=== PATIENT | female | born 1965 | race Caucasian/White ===

== ENCOUNTER → 2020-06-05 12:35 | Outpatient (BNVA) | payer MEDICAID, SELFPAY | PROVIDERS: PCP Internal Medicine; Referring Provider Internal Medicine; Visit Provider Nurse Practitioner Family | DX: M47.816 Spondylosis without myelopathy or radiculopathy, lumbar region (principal); M53.3 Sacrococcygeal disorders, not elsewhere classified | CPT/HCPCS: 99202 ==

== ENCOUNTER 2020-06-27 12:00 | Outpatient (REF) | payer MEDICAID, SELFPAY ==
--- NOTE | 2020-06-27 12:01 | MR_ITS ---
EXAMINATION: MR LUMBAR SPINE WITHOUT AND WITH CONTRAST CLINICAL INFORMATION: Spondylosis without myelopathy or radiculopathy, lumbar region. COMPARISON: Lumbar spine MRI 08/26/2014. TECHNIQUE: MRI of the lumbar spine was obtained using routine sequences without and with intravenous contrast. A total of 6.5 mL Gadavist was intravenously administered. FINDINGS: There is transitional lumbosacral anatomy. The last formed disc space is considered L5-S1. A hypoplastic disc is seen at S1-S2. There is grade 1 anterolisthesis of L5 on S1 measuring 4 mm, previously 2 mm. There is new grade 1 anterolisthesis of L4 on L5 measuring 2 mm. There is unchanged trace retrolisthesis of L3 on L4. There is mild multilevel disc height loss, similar to prior. No bone marrow edema is seen. The distal spinal cord appears normal. The conus medullaris terminates normally at the upper L2 level. No abnormal cauda equina nerve root enhancement is seen. The visualized paraspinal muscles and intra-abdominal and pelvic contents are within normal limits. SPINAL LEVELS: L1-L2: Mild disc bulging. No spinal canal or neural foraminal stenosis. No interval change. L2-L3: Mild disc bulging. No spinal canal or neural foraminal stenosis. No interval change. L3-L4: Disc bulging with mild facet arthropathy. Mild spinal canal stenosis, new from prior. Left subarticular zone is asymmetrically narrowed. No foraminal nerve root compression. L4-L5: Disc bulging asymmetric to the left with ligament flavum infolding and moderate to severe facet arthropathy resulting in progressive moderate spinal canal stenosis and bilateral subarticular stenosis. Mild to moderate narrowing of the left neural foramen with abutment of the exiting left L4 nerve root, progressed from prior. L5-S1: Posterior decompression with fusion changes noted posteriorly. Similar-appearing mild spinal canal stenosis with asymmetric narrowing of the right subarticular zone with mass effect on the traversing right S1 nerve root without interval change. Mild bilateral neural foraminal stenosis without foraminal nerve root compression. MR/MR lumbar spine wo/w con IMPRESSION: At L3-L4 there is new mild spinal canal stenosis and asymmetric left subarticular stenosis. At L4-L5 there is new grade 1 anterolisthesis and progressive now moderate spinal canal stenosis with bilateral subarticular stenosis. Progressive mild to moderate left-sided neural foraminal stenosis. At L5-S1 there is unchanged mild spinal canal stenosis and asymmetric right subarticular stenosis with mass effect on the traversing right S1 nerve root.
== END 2020-06-27 12:01 | disposition home or self-care (01) ==
LOC: HO.MRI 12:00
PROVIDERS: Visit Provider Anesthesiology
DX: M47.816 Spondylosis without myelopathy or radiculopathy, lumbar region (principal)
CPT/HCPCS: 72158; A9585

== ENCOUNTER → 2020-10-09 14:31 | Outpatient (BNVA) | payer MEDICAID, SELFPAY | PROVIDERS: PCP Internal Medicine; Visit Provider Anesthesiology ==

== ENCOUNTER 2020-11-14 06:25 | Outpatient (REF) | payer MEDICAID, SELFPAY ==
--- NOTE | ~2020-11-14 | FL_ITS ---
EXAMINATION: Intraoperative fluoroscopy CLINICAL INFORMATION: Sacrococcygeal disorder COMPARISON: None. TECHNIQUE: Intraoperative fluoroscopy was provided for use by Dr. Alvarenga. A total of 1 image was saved to PACS. A radiologist was not present during imaging. Today's dictation is only for administrative purposes to document intraoperative fluoroscopic usage. TOTAL FLUOROSCOPIC TIME: 0.1 minutes FL/FL guidance in treatment room FINDINGS~\^^ Intraoperative fluoroscopy provided for use by Dr. Alvarenga. Please see operative note for detailed findings.
== END 2020-11-14 06:26 | disposition home or self-care (01) ==
LOC: HO.RADIR 06:25
PROVIDERS: Visit Provider Anesthesiology
DX: M53.3 Sacrococcygeal disorders, not elsewhere classified (principal); M47.816 Spondylosis without myelopathy or radiculopathy, lumbar region
CPT/HCPCS: 27096; J3300; Q9967

== ENCOUNTER 2021-01-02 12:08 | Outpatient (REF) | payer MEDICAID, SELFPAY ==
--- NOTE | ~2021-01-02 | MM_ITS ---
EXAMINATION: MM SCREENING DIGITAL BREAST TOMOSYNTHESIS, BILATERAL CLINICAL INFORMATION: Screening. Asymptomatic. The lifetime risk of breast cancer based on the Tyrer-Cuzick Model is 12%. COMPARISON: Mammography: 05/04/2018, 10/07/2016, 04/22/2012 TECHNIQUE: Digital breast tomosynthesis is performed in both the craniocaudal and mediolateral oblique views along with computer-aided detection (CAD). Synthesized 2D images are generated from the tomosynthesis. FINDINGS: There are scattered areas of fibroglandular density (ACR BI-RADS breast composition Category b). There are no significant masses, abnormal calcifications, or other abnormalities. The axilla and skin contours are unremarkable. No significant changes from prior exams. MM/MM tomosynthesis screening BI IMPRESSION: No mammographic evidence of malignancy. ASSESSMENT: BI-RADS 1: Negative RECOMMENDATION: Routine annual mammography screening. This patient's information was entered into a reminder system with a target due date for their next mammogram.
== END 2021-01-02 12:09 | disposition home or self-care (01) ==
LOC: HO.MAMMO 12:08
PROVIDERS: PCP Internal Medicine; Visit Provider Internal Medicine
DX: Z12.31 Encounter for screening mammogram for malignant neoplasm of breast (principal)
CPT/HCPCS: 77063; 77067

== ENCOUNTER → 2021-11-15 08:27 | Outpatient (BNVA) | payer MEDICAID, SELFPAY | PROVIDERS: PCP Internal Medicine; Referring Provider Internal Medicine; Visit Provider Physician Assistant | DX: Z13.89 Encounter for screening for other disorder (principal) ==

== ENCOUNTER 2021-12-12 12:05 | Emergency (ER) | payer MEDICAID, SELFPAY ==
--- NOTE | ~2021-12-12 | CT_ITS ---
EXAMINATION: CT ABDOMEN AND PELVIS WITHOUT CONTRAST CLINICAL INFORMATION: Left flank/back pain. Rule out stone. COMPARISON: CT of the abdomen and pelvis April 2019 TECHNIQUE: Multidetector volumetric imaging was performed from the superior aspect of the liver through the pubic symphysis. Sagittal and coronal reformatted images were obtained on the technologist's workstation. This CT examination was performed using dose optimization techniques as appropriate, variously including the following: *Automated exposure control *Adjustment of mA and/or kV according to patient size (this includes techniques or standardized protocols for targeted exams where dose is matched to indication/reason for exam; i.e. extremities or head) *Use of iterative reconstruction technique DLP: 476 mGy-cm FINDINGS: LUNG BASES: As a small 2 mm left lower lobe nodule axial image 4 series 3 that is stable. The lung bases are otherwise clear. LIVER, GALLBLADDER, AND BILIARY TREE: The liver is normal in size, shape, and attenuation. No focal hepatic lesion or biliary ductal dilatation is present. The gallbladder has been removed. PANCREAS: Unremarkable. SPLEEN: Unremarkable. ADRENAL GLANDS: Unremarkable. KIDNEYS AND URETERS: The kidneys are normal in size, shape, and attenuation. No hydronephrosis, hydroureter, or calculi seen. No perinephric stranding. BLADDER: Unremarkable. GASTROINTESTINAL TRACT: The small and large bowel are unremarkable. The appendix is unremarkable. ABDOMINAL WALL: No significant hernia is appreciated. LYMPH NODES: Normal. VASCULAR: Unremarkable. PELVIC VISCERA: Uterus appears to have been removed. No pelvic mass. OSSEOUS STRUCTURES: There are postsurgical changes with posterior spinous process fusion of the lower lumbar spine at L4-L5. There is a small amount of air seen adjacent to the L4 lamina and spinous process on the right. No fluid collection is seen. There are degenerative changes of the spine. CT/CT abdomen pelvis wo con IMPRESSION: No stone or hydronephrosis. Postsurgical changes to the lower lumbar spine post spinous process fusion. There is a small amount of air seen in the soft tissues adjacent to the right L4 lamina and spinous process. Fleischner guidelines were followed.
--- NOTE | ~2021-12-12 | XR_ITS ---
EXAMINATION: XR CHEST CLINICAL INFORMATION: Cough, shortness of breath and back pain COMPARISON: Previous chest x-ray most recent February 2019 TECHNIQUE: 2 views of the chest were obtained. FINDINGS: The cardiac and mediastinal contours are stable. The lungs are clear. There is no pleural effusion or pneumothorax. There is mild curvature of the thoracic spine to the right and degenerative changes. XR/XR chest 2V IMPRESSION: No evidence for acute disease in the chest. Scoliosis and degenerative changes of the spine.
[2021-12-12] MEDS: Cyclobenzaprine HCl 10 MG TABLET PO (13:33)
[2021-12-12] MEDS: NaPROXEN 500 MG TABLET PO (13:34)
[2021-12-12 13:37] VITALS: BP 126/69; PULSE 99; RESP 16; O2SAT 99
--- NOTE | 2021-12-12 14:18 | ED_ITS ---
HPI - Back Pain/Injury General Chief Complaint: Back Pain/Injury Stated Complaint: sharp back pain, pulled muscle Time Seen by Provider: 12/12/21 13:00 Source: patient Mode of arrival: ambulatory Limitations: language barrier (Canadian-speaking) History of Present Illness HPI Narrative: 56-year-old female with a past medical history of CVA, asthma, spondylosis of the back presenting to the ED with complaints of atraumatic left trapezius/thoracic/left lower back/left flank pain for the past 3 days worse today. Reports that she has had this pain in the past and has tried [id number] medication and lotions and patches and no symptomatic relief where she usually does get symptomatic relief with those treatments. She denies any dizziness, lightheadedness, headaches, neck pain/stiffness/pain, paresthesias, trouble swallowing or breathing, chest pain or shortness of breath, dyspnea exertion, orthopnea, palpitations, focal weakness or general weakness, nausea/vomiting/diarrhea constipation, black or bloody stools, rashes, abdominal pain, dysuria, hematuria, abnormal vaginal discharge, recent travel or sick contacts, urinary bowel incontinence or retention, history of cancer, recent surgery immobilization, history of IV drug use or any other symptoms complaints or concerns at this time MD elicited complaint: back pain Pertinent past history: prior back pain Onset (ago): day(s) (3) Timing: constant and progressively worsening Severity: moderate Similar Symptoms Previously: Yes Quality: stabbing, aching, spasming and throbbing Location: lumbar spine, thoracic spine (/trapezius muscle) and left flank Radiation: none Exacerbating factors: movement, deep breaths, coughing/sneezing, lifting and other (Or palpation) Relieving factors: none Context: unknown Associated symptoms: denies other symptoms Treatments prior to arrival: cold therapy, heat therapy, NSAIDS, acetaminophen and other medications Work related injury: No Related Data Home Medications Medication Instructions Recorded Confirmed albuterol sulfate 2.5 mg INHALATION Q6H 06/05/20 aspirin 81 mg tablet,delayed 81 mg PO DAILY 06/05/20 release (Adult Aspirin Regimen) biotin 1 mg tablet 1 mg PO DAILY 06/05/20 hidlfzrlfo-cvxscpeyjjtey-citcxxob 1 cap PO Q4H PRN 06/05/20 50 mg-300 mg-40 mg capsule (Fioricet) clonazepam 1 mg tablet (Klonopin) 1 mg PO BID 06/05/20 docusate sodium 100 mg capsule 100 mg PO BID 06/05/20 (Colace) duloxetine 20 mg capsule,delayed 20 mg PO BID 06/05/20 release ergocalciferol (vitamin D2) 1,250 1,250 mcg PO QWEEK 06/05/20 mcg (50,000 unit) capsule ergocalciferol (vitamin D2) 1,250 1,250 mcg PO QWEEK 06/05/20 mcg (50,000 unit) capsule (Drisdol) fluconazole 150 mg tablet 150 mg PO DAILY 06/05/20 fluticasone propionate 220 1 puff INHALATION BID 06/05/20 mcg/actuation HFA aerosol inhaler (Flovent HFA) fluticasone propionate 50 1 spray INTRANASAL DAILY 06/05/20 mcg/actuation nasal spray,suspension gabapentin 300 mg capsule 300 mg PO DAILY 06/05/20 hydrocortisone 2.5 % topical cream 1 applic TOPICAL BID PRN 06/05/20 linaclotide 290 mcg capsule 290 mcg PO DAILY 06/05/20 (Linzess) phenazopyridine 200 mg tablet 200 mg PO TID 06/05/20 sennosides 8.6 mg tablet (Natural 8.6 mg PO BID 06/05/20 Senna Laxative) topiramate 25 mg tablet (Topamax) 25 mg PO BID 06/05/20 zolpidem 5 mg tablet (Ambien) 5 mg PO BEDTIME PRN 06/05/20 Previous Rx's Medication Instructions Recorded tizanidine 2 mg tablet 2 mg PO BID PRN #60 tab 07/07/20 cyclobenzaprine 10 mg tablet 10 mg PO Q8H PRN #14 tab 12/12/21 lidocaine 5 % topical patch 1 patch TOPICAL DAILY #15 ea 12/12/21 (Lidoderm) naproxen 500 mg tablet 500 mg PO BID PRN #14 tab 12/12/21 Allergies Allergy/AdvReac Type Severity Reaction Status Date / Time Penicillins Allergy Intermediate RASH,SWELLI Verified 11/14/20 08:34 NG sulfamethoxazole Allergy Intermediate RASH,SWELLI Verified 11/14/20 08:34 [From Bactrim] NG trimethoprim [From Bactrim] Allergy Intermediate RASH,SWELLI Verified 11/14/20 08:34 NG Review of Systems Review of Systems: Constitutional : No trauma, No Weight loss, No Fever, No Chills, ENT/Mouth : No Hearing loss, No Ear Pain, No Nasal Congestion, No Sinus Pain, No Hoarseness, No sore throat, No Rhinorrhea, No Swallowing Difficulty Cardiovascular : No Chest Pain, No SOB Respiratory : No Cough, No Dyspnea Gastrointestinal : No Nausea, No Vomiting, No Diarrhea, No abdominal Pain, No Hematochezia, No Melena Genitourinary : No Dysuria, No Urinary Frequency, No Hematuria, No Urinary or Bowel Incontinence/retention Musculoskeletal : + Back pain, No neck pain, No joint stiffness, No joint swelling Skin : No Skin Lesions, No rash or signs of infection Neuro : No Weakness, No radiation, No Numbness, No Paresthesias, No headache, no loss of bowel or bladder incontinence, no saddle anesthesia, Focal weakness, No radiation Denies history of IV drug usage. Yes all other systems are reviewed and are neg ative [facility] Past Medical History Attestation statement: The following information was validated with the patient. Medical History Asthma CVA (cerebral vascular accident) Surgical History H/O colonoscopy History of back surgery History of esophagogastroduodenoscopy (EGD) Hx of cystoscopy Hx of elbow surgery Hx of hysterectomy Social History Social History Advance Directives: No Advance Directives Information Provided: Yes Physical Exam Vital Signs: Vital Signs: Last Vital Signs Pulse 99 12/12/21 13:37 Resp 16 12/12/21 13:37 BP 126/69 12/12/21 13:37 Pulse Ox 99 12/12/21 13:37 BMI result Body Mass Index 0.0 vital signs have been reviewed as normal and appeared to be correct. Blood pressure normal. Heart rate normal. Respiration rate normal. Temperature normal. Oxygen saturation normal. Appearance: Alert. Oriented X3. No acute distress. Head: Normal external exam. Normocephalic. Atraumatic. No Garza signs noted. No raccoon eyes noted Eyes: PERRLA. EOMI. Conjunctiva and sclera normal. Eyelids normal. ENT: EAC normal. TM's Normal. Pharynx normal. Uvula midline. Moist mucous membranes. No trismus noted. No drooling noted. No muffled voice noted. Neck: Normal inspection. Neck supple. FROM. No adenopathy. Thyroid Normal. No meningeal signs. No neck mass noted. CVS: Normal heart rate and rhythm. Heart sound normal. No murmurs noted. Pulses normal throughout. Respiratory: No respiratory distress. Painless inspiration. Breath sounds normal. No wheezes/rales/rhonchi noted. Chest nontender. No accessory muscle usage noted or decreased air movement noted. Abdomen: Soft and nontender. Bowel sounds normal in all 4 quadrants. No distention noted. No organomegaly noted. No visible injury noted. Back: +left CVA tenderness. No Right CVA tenderness. Full range of motion noted. No obvious deformities, or edema. Mild para-spinal left muscular tenderness from thoracic to lumbar region to coccyx. Full ROM in back and lower extremities. 5/5 strength hip extension/flexion, abduction, adduction. Mild Lumbar pain with hip flexion against resistance. Straight leg raise test negative on right; Straight leg raise test negative on left; Reflexes normal ankle and knee bilaterally; EHL motor strength normal bilaterally. No rashes/lesion/induration/fluctuance or signs infection noted. Skin: Skin warm and dry. Normal skin color. Normal skin turgor. No rashes/lesions/lacerations noted. Extremities: No lower extremity edema. Extremities exhibit normal range of motion. Extremities nontender. Neuro: Oriented X 3. No motor deficit. No sensory deficit. Reflexes normal. Patient has a normal steady gait. Course Course Course Narrative: Pt c likely muscular pain, but could be herniated disc. Neuro exam shows no deficits. Not c/w AAA/epidural abscess/dissection.No high risk Hx (Incont, fever, immunosupp, recent surgery/LP, coag, signif trauma, wt loss, puls mass, hx/o Ca, TB, or IVDU) to warrant MRI today. Not c/w Pyelo/UTI/spinal fx. Not cauda equina syndrome. Will obtain a CT scan of abdomen pelvis without IV contrast to evaluate for possible kidney stones. Will provide Flexeril. If imaging negative will DC home with symptomatic treatment for muscular spasm. Patient understands agrees with this plan. Reevaluation(s) Reevaluation #1: CT scan abdomen pelvis without IV contrast revealed chronic changes and they reported there is a small amount of air seen in the soft tissues adjacent to the right L4 lamina and spinous process. Although I discussed this with Dr. Ramirez and Dr. Leonard the radiologist and she reported and LEs the patient is tender we do not have to worry about the air is nonspecific. Therefore patient does not have any tenderness palpation to the right side of the spine. Only on the left upper and left flank mainly. Therefore at this time will DC home with symptomatic treatment instructions return if any new or worsening symptoms. Patient understands agrees with this plan. Time: 15:40 MDM - Back Pain/Injury Medical Records Attestation: I reviewed the patient's medical records. Imaging Data Chest x-ray: Attestation: I personally reviewed and interpreted this imaging study as follows: Radiologist's impression: FINDINGS: The cardiac and mediastinal contours are stable. The lungs are clear. There is no pleural effusion or pneumothorax. There is mild curvature of the thoracic spine to the right and degenerative changes. XR/XR chest 2V IMPRESSION: No evidence for acute disease in the chest. Scoliosis and degenerative changes of the spine. CT scan abdomen pelvis without IV contrast: Attestation: I personally reviewed and interpreted this imaging study as follows: Radiologist's impression: FINDINGS: LUNG BASES: As a small 2 mm left lower lobe nodule axial image 4 series 3 that is stable. The lung bases are otherwise clear. LIVER, GALLBLADDER, AND BILIARY TREE: The liver is normal in size, shape, and attenuation. No focal hepatic lesion or biliary ductal dilatation is present. The gallbladder has been removed. PANCREAS: Unremarkable.? SPLEEN: Unremarkable.? ADRENAL GLANDS: Unremarkable.? KIDNEYS AND URETERS: The kidneys are normal in size, shape, and attenuation. No hydronephrosis, hydroureter, or calculi seen. No perinephric stranding. ? BLADDER: Unremarkable.? GASTROINTESTINAL TRACT: The small and large bowel are unremarkable. The appendix is unremarkable.? ABDOMINAL WALL: No significant hernia is appreciated.? LYMPH NODES: Normal. VASCULAR: Unremarkable. PELVIC VISCERA: Uterus appears to have been removed. No pelvic mass. OSSEOUS STRUCTURES: There are postsurgical changes with posterior spinous process fusion of the lower lumbar spine at L4-L5. There is a small amount of air seen adjacent to the L4 lamina and spinous process on the right. No fluid collection is seen. There are degenerative changes of the spine. CT/CT abdomen pelvis wo con IMPRESSION: No stone or hydronephrosis. Postsurgical changes to the lower lumbar spine post spinous process fusion. There is a small amount of air seen in the soft tissues adjacent to the right L4 lamina and spinous process. ? Fleischner guidelines were followed. Discharge Plan Discharge Clinical Impression: Muscle strain Patient Disposition: Home, Self-Care Instructions: Muscle Spasm (ED) Prescriptions: New naproxen 500 mg tablet 500 mg PO BID PRN (Reason: pain) Qty: 14 0RF cyclobenzaprine 10 mg tablet 10 mg PO Q8H PRN (Reason: Muscle spasm) Qty: 14 0RF lidocaine [Lidoderm] 5 % adhesive patch,medicated 1 patch topical DAILY Qty: 15 0RF Rx Instructions: leave on most painful area for up to 12 hrs. May be substituted No Action tizanidine 2 mg tablet 2 mg PO BID PRN (Reason: muscle spasticity) Qty: 60 0RF Rx Instructions: Be sure to avoid taking with Klonopin or Ambien Referrals: Ayala Mckay MD [Primary Care Provider] - 2 days Stand Alone Forms: Work/School Release Print Language: Canadian
[2021-12-12 15:48] VITALS: BP 117/66; PULSE 67; TEMP 36.2; O2SAT 98
== END 2021-12-12 15:48 | disposition home or self-care (01) ==
PROVIDERS: Emergency Provider Emergency Medicine Emergency Medical Services; PCP Internal Medicine
DX: S29.012A Strain of muscle and tendon of back wall of thorax, initial encounter (principal); M54.50 Low back pain, unspecified; R07.89 Other chest pain; R10.9 Unspecified abdominal pain; X58.XXXA Exposure to other specified factors, initial encounter; Y93.9 Activity, unspecified; Y92.9 Unspecified place or not applicable; Y99.9 Unspecified external cause status; Z79.899 Other long term (current) drug therapy
CPT/HCPCS: 71046; 74176; 99282; 99284

== ENCOUNTER → 2022-01-08 14:13 | Outpatient (BNVA) | payer MEDICAID, SELFPAY | PROVIDERS: PCP Internal Medicine; Referring Provider Internal Medicine; Visit Provider Nurse Practitioner Family | DX: K59.04 Chronic idiopathic constipation (principal); K59.00 Constipation, unspecified; R14.0 Abdominal distension (gaseous); R15.9 Full incontinence of feces; R13.10 Dysphagia, unspecified | CPT/HCPCS: 99202; 99212 ==

== ENCOUNTER → 2022-04-12 09:39 | Outpatient (BNVA) | payer MEDICAID, SELFPAY | PROVIDERS: PCP Internal Medicine; Referring Provider Internal Medicine; Visit Provider Nurse Practitioner Family | DX: K59.04 Chronic idiopathic constipation (principal); R14.0 Abdominal distension (gaseous); K21.9 Gastro-esophageal reflux disease without esophagitis | CPT/HCPCS: 99212 ==

== ENCOUNTER → 2022-09-25 14:29 | Outpatient (BNVA) | payer MEDICAID, SELFPAY | PROVIDERS: PCP Internal Medicine; Visit Provider Nurse Practitioner Family | DX: R39.15 Urgency of urination (principal); R32 Unspecified urinary incontinence | CPT/HCPCS: 51798; 99202 ==

== ENCOUNTER → 2022-10-07 13:44 | Outpatient (BNVA) | payer MEDICAID, SELFPAY | PROVIDERS: PCP Internal Medicine; Visit Provider Anesthesiology | DX: M47.816 Spondylosis without myelopathy or radiculopathy, lumbar region (principal); M53.3 Sacrococcygeal disorders, not elsewhere classified; M46.1 Sacroiliitis, not elsewhere classified; M54.2 Cervicalgia; M47.812 Spondylosis without myelopathy or radiculopathy, cervical region | CPT/HCPCS: 99212 ==

== ENCOUNTER 2022-10-17 12:43 | Outpatient (REF) | payer MEDICAID, SELFPAY ==
--- NOTE | ~2022-10-17 | US_ITS ---
EXAMINATION: US RETROPERITONEAL COMPLETE (RENAL) CLINICAL INFORMATION: Urgency of urination. COMPARISON: None available. TECHNIQUE: Real-time imaging of the kidneys and bladder. FINDINGS: RIGHT KIDNEY: 8.9 x 4.3 x 4.1 cm (SAG x AP x TRV). The kidney is normal in size, contour, and echogenicity. Renal cortical thickness is normal. No calculi or focal parenchymal lesions. No hydronephrosis. Small fatty cleft/indentation on the lateral surface of the mid pole, normal congenital variation. LEFT KIDNEY: 10.3 x 4.3 x 4.5 cm (SAG x AP x TRV). The kidney is normal in size, contour, and echogenicity. Renal cortical thickness is normal. No calculi or focal parenchymal lesions. No hydronephrosis. BLADDER: Equivocal diffuse urinary bladder wall thickening. Bilateral ureteral jets are demonstrated. Prevoid bladder volume is 222 mL. Postvoid bladder volume is 7.1 mL. US/US retroperitoneal comp IMPRESSION: 1. No nephrolithiasis or hydronephrosis. 2. Equivocal diffuse urinary bladder wall thickening which could be seen in the setting of cystitis in the appropriate clinical context. Correlate with urinalysis.
== END 2022-10-17 12:44 | disposition home or self-care (01) ==
LOC: HO.US 12:43
PROVIDERS: PCP Internal Medicine; Visit Provider Nurse Practitioner Family
DX: R39.15 Urgency of urination (principal)
CPT/HCPCS: 76770

== ENCOUNTER → 2022-11-18 13:05 | Outpatient (BNVA) | payer MEDICAID, SELFPAY | PROVIDERS: PCP Internal Medicine; Visit Provider Nurse Practitioner Family | DX: R32 Unspecified urinary incontinence (principal); R39.15 Urgency of urination | CPT/HCPCS: 51798; 99212 ==

== ENCOUNTER 2022-11-19 06:06 | Outpatient (REF) | payer MEDICAID, SELFPAY ==
--- NOTE | ~2022-11-19 | FL_ITS ---
EXAMINATION: XR FLUOROSCOPY WITH IMAGES CLINICAL INFORMATION: M53.3 - Sacrococcygeal disorders, not elsewhere classified COMPARISON: CT abdomen and pelvis 12/12/2021 TECHNIQUE: Fluoroscopy Supervised By: Dr. Arjun Pandey. Fluoroscopy Time: 0.2 minutes. Cumulative Dose: 3.44 mGy. DAP: 0.937 Gycm2. Images: 3. FINDINGS: There is a spinal needle overlying the mid to lower left SI joint and a spinal needle overlying the mid right SI joint. There is contrast in the periarticular soft tissues with probable early intra-articular contrast.. There are again degenerative changes noted lower lumbar spine. There is hardware again seen between the posterior spinous processes at lumbosacral junction similar to the CT. FL/FL guidance in treatment room IMPRESSION: Fluoroscopy for pain management procedure.
== END 2022-11-19 06:07 | disposition home or self-care (01) ==
LOC: CF 06:06
PROVIDERS: Visit Provider Anesthesiology
DX: M47.816 Spondylosis without myelopathy or radiculopathy, lumbar region (principal); M53.3 Sacrococcygeal disorders, not elsewhere classified; M46.1 Sacroiliitis, not elsewhere classified; M54.2 Cervicalgia; M47.812 Spondylosis without myelopathy or radiculopathy, cervical region
CPT/HCPCS: 27096

== ENCOUNTER 2022-12-10 13:00 | Outpatient (RCR) | payer MEDICAID, SELFPAY ==
--- NOTE | 2023-01-14 11:11 | MHC.PT.DC ---
[facility] [place] [facility] [place] [facility] [place] Office [address] Kary Lucas [address] [phone] F: [phone] F: [phone] F: [phone] F: [phone] Physical Therapy Discharge Report Diagnosis: cervical spondylosis without radiculopathy Date of Surgery: Date of Evaluation: 11/22/22 Date of Discharge: 01/14/23 Treatments to Date: 2 Cancellations to Date: 3 No Shows to Date: Discharge Status: Visit Non-compliance Discharge Summary: Patient was only seen for 2 visits and stopped attending PT on her own accord. Due to limited visits, unable to determine effectiveness of PT interventions on patient condition. She is discharged from PT at this time. Electronically signed by: Aziza Marshall, PT, DPT Please sign and return to therapist. Thank you for your referral.
== END 2023-01-14 11:11 | disposition home or self-care (01) ==
LOC: HO.PT 13:00
PROVIDERS: PCP Internal Medicine; Visit Provider Anesthesiology
DX: M47.812 Spondylosis without myelopathy or radiculopathy, cervical region (principal); M54.2 Cervicalgia
CPT/HCPCS: 97110; 97140; 97161; 97530

== ENCOUNTER 2023-05-15 12:11 | Outpatient (REF) | payer MEDICAID, SELFPAY ==
--- NOTE | ~2023-05-15 | XR_ITS ---
EXAMINATION: XR CHEST CLINICAL INFORMATION: 12 days duration cough COMPARISON: Chest radiograph from 12/12/2021 TECHNIQUE: 2 views of the chest were obtained. FINDINGS: Slight bronchial prominence which may reflect infectious/inflammatory etiology. No pneumothorax. Trachea is midline. Cardiac mediastinal silhouette is not enlarged. Scoliotic curvature of the thoracolumbar spine. Soft tissues are unremarkable. XR/XR chest 2V IMPRESSION: Slight bronchial prominence which may reflect infectious/inflammatory etiology.
[2023-05-15 19:23] LABS: Influenza A PCR NEGATIVE (Negative); Influenza B PCR NEGATIVE (Negative); Resp Syncy Virus RNA Qual PCR NEGATIVE (Negative); SARS COV2 PCR INHOUSE NEGATIVE (Negative)
== END 2023-05-15 12:12 | disposition home or self-care (01) ==
LOC: HO.HHCX 12:11
PROVIDERS: Visit Provider Family Medicine
DX: Z11.52 Encounter for screening for COVID-19 (principal); R06.02 Shortness of breath
CPT/HCPCS: 0241U; 71046

== ENCOUNTER 2023-06-06 12:14 | Outpatient (REF) | payer MEDICAID, SELFPAY ==
[2023-06-06 13:35] LABS: MANUAL DIFF FLAG NO
[2023-06-06 13:38] LABS: Basophils Percent Auto 0.3 % (0-2); Eosinophils Absolute Auto 0.1 X10*3/uL (0.0-0.4); Eosinophils Percent Auto 1.3 % (0-4); Hematocrit 42.1 % (37.0-47.0); Hemoglobin 13.3 g/dl (12.0-16.0); Imm Gran Abs Auto 0.01 X10*3/uL (0.00-0.03); Imm Gran Pct Auto 0.2 % (0.0-0.4); Lymphocytes Absolute Auto 2.2 X10*3/uL (1.2-4.9); Lymphocytes Percent Auto 36.1 % (20-40); Mean Corpuscular HGB Conc 31.6 g/dl (31.0-35.0); Mean Corpuscular Hemoglobin 29.6 pg (27.0-33.0); Mean Corpuscular Volume 93.8 fL (80.0-98.0); Mean Platelet Volume 9.5 fL (9.4-12.3); Monocytes Absolute Auto 0.4 X10*3/uL (0.1-1.2); Monocytes Percent Auto 7.2 % (2-11); Neutrophils Absolute Auto 3.3 x10*3/uL (2.0-8.3); Neutrophils Percent Auto 54.9 % (45-73); Platelet Count 296 X10*3/uL (160-400); Red Blood Count 4.49 X10*6/uL (4.20-5.50); Red Cell Distribution Width 12.3 % (11.0-16.0)
[2023-06-06 14:15] LABS: Estimated Average Glucose 105 mg/dL; Hemoglobin A1c % 5.3 % (<6.0)
[2023-06-06 16:38] LABS: Alanine Aminotransferase 22 U/L (0-31); Albumin Level 4.6 g/dL (3.5-5.0); Alkaline Phosphatase 72 U/L (39-117); Anion Gap 11 (12-20); Aspartate Amino Transferase 21 U/L (5-31); Bilirubin Direct 0.2 mg/dL (0.0-0.5); Blood Urea Nitrogen 17 mg/dL (9-16); Calcium 9.5 mg/dL (8.4-10.2); Carbon Dioxide 28 mmol/L (22-29); Chloride 108 mmol/L (96-108); Cholesterol 241 mg/dL (<200); Estimated Glomerular Filt Rate > 60; Glucose Random 94 mg/dL (60-115); HDL Cholesterol 55 mg/dL (>40); LDL Cholesterol Calculated 141 mg/dL (<100); Potassium 4.3 mmol/L (3.3-5.1); Sodium 143 mmol/L (135-145); Total Protein 7.7 g/dL (6.5-8.0); Triglycerides 227 mg/dL (<150)
[2023-06-06 16:55] LABS: Free T4 (Free Thyroxine) 0.94 ng/dL (0.71-1.85)
== END 2023-06-06 12:15 | disposition home or self-care (01) ==
LOC: HO.HHCL 12:14
PROVIDERS: Visit Provider Family Medicine
DX: R10.9 Unspecified abdominal pain (principal)
CPT/HCPCS: 36415; 80048; 80061; 80076; 82306; 83036; 84439; 84443; 85025

== ENCOUNTER 2023-08-15 09:57 | Outpatient (REF) | payer MEDICAID, SELFPAY ==
[2023-08-15 12:13] LABS: Estimated Average Glucose 103 mg/dL; Hemoglobin A1c % 5.2 % (<6.0)
[2023-08-15 12:33] LABS: Vitamin B12 435 pg/mL (200-900)
[2023-08-15 12:38] LABS: Anion Gap 14 (12-20); Blood Urea Nitrogen 14 mg/dL (9-16); Calcium 9.8 mg/dL (8.4-10.2); Carbon Dioxide 24 mmol/L (22-29); Chloride 107 mmol/L (96-108); Estimated Glomerular Filt Rate > 60; Glucose Random 99 mg/dL (60-115); Potassium 3.8 mmol/L (3.3-5.1); Sodium 141 mmol/L (135-145); Vitamin D 25-OH Total 38.3 ng/mL (>30)
== END 2023-08-15 09:58 | disposition home or self-care (01) ==
LOC: HO.HHCL 09:57
PROVIDERS: Visit Provider Emergency Medicine
DX: R42 Dizziness and giddiness (principal); R03.0 Elevated blood-pressure reading, without diagnosis of hypertension
CPT/HCPCS: 36415; 80048; 82306; 82607; 83036

== ENCOUNTER 2023-10-14 14:00 | Emergency (ER) | payer MEDICAID, SELFPAY ==
--- NOTE | ~2023-10-14 | XR_ITS ---
EXAMINATION: XR CHEST CLINICAL INFORMATION: Chest pain COMPARISON: Chest 05/15/2023. TECHNIQUE: Frontal view of the chest was obtained. FINDINGS: No significant abnormality is noted involving the heart, lungs, mediastinum, bony thorax or soft tissues. XR/XR chest 1V IMPRESSION: Unremarkable chest examination.
[2023-10-14 14:16] VITALS: BP 111/78; BP 177/110; PULSE 104; PULSE 75; RESP 17; TEMP 36.5; O2SAT 96; BMI 29.7
--- NOTE | 2023-10-14 14:26 | ED.GENADULT ---
HPI - General Adult General Chief complaint: General Medical Stated complaint: CP WEAKNESS BLURRY VISION Time Seen by Provider: 10/14/23 14:26 Source: patient Mode of arrival: ambulatory Limitations: no limitations History of Present Illness HPI narrative: 58-year-old female who presents emergency department for evaluation of headache, blurred vision, elevated blood pressure, shortness of breath, weakness and chest pain. Patient states that she has been monitoring her blood pressure over the last 1-2 months. She states that her systolic blood pressures ranged from 147-175. She states this morning she checked her blood pressure was high. She then developed blurred vision headache shortness of breath. She states that the headache as a pressure-like sensation behind her eyes. The headache is associated with nausea, vomiting, photophobia and weakness. She also states she has been having intermittent chest pain which is sharp over the last several months. Patient came to the emergency department by ambulance. The patient was treated with nitroglycerin and aspirin with improvement of her chest pain. Related Data Home Medications Medication Instructions Recorded Confirmed albuterol sulfate 2.5 mg/3 mL 2.5 mg inhalation Q6H 06/05/20 10/07/22 (0.083 %) solution for nebulization aspirin 81 mg tablet,delayed 81 mg PO DAILY 06/05/20 10/07/22 release (Adult Aspirin Regimen) dbtjaufqdu-fpduwmefdwhwx-qbjqqahw 1 cap PO Q4H PRN 06/05/20 10/07/22 50 mg-300 mg-40 mg capsule (Fioricet) clonazepam 1 mg tablet (Klonopin) 1 mg PO BID 06/05/20 10/07/22 duloxetine 20 mg capsule,delayed 20 mg PO BID 06/05/20 10/07/22 release ergocalciferol (vitamin D2) 1,250 1,250 mcg PO QWEEK 06/05/20 10/07/22 mcg (50,000 unit) capsule fluticasone propionate 220 1 puff inhalation BID 06/05/20 10/07/22 mcg/actuation HFA aerosol inhaler (Flovent HFA) fluticasone propionate 50 1 spray intranasal DAILY 06/05/20 10/07/22 mcg/actuation nasal spray,suspension gabapentin 300 mg capsule 300 mg PO DAILY 06/05/20 10/07/22 hydrocortisone 2.5 % topical cream 1 applic topical BID PRN 06/05/20 10/07/22 phenazopyridine 200 mg tablet 200 mg PO TID 06/05/20 10/07/22 zolpidem 5 mg tablet (Ambien) 5 mg PO BEDTIME PRN 06/05/20 10/07/22 albuterol sulfate 90 mcg/actuation 0 mcg inhalation Q4-6H PRN 09/25/22 10/07/22 aerosol inhaler (Ventolin HFA) linaclotide 290 mcg capsule 290 mcg PO QAM 09/25/22 10/07/22 (Linzess) gabapentin 100 mg capsule 100 mg PO BEDTIME 11/18/22 Previous Rx's Medication Instructions Recorded tizanidine 2 mg tablet 2 mg PO BID PRN muscle spasticity 07/07/20 #60 tabs cyclobenzaprine 10 mg tablet 10 mg PO Q8H PRN Muscle spasm #14 12/12/21 tabs methylcellulose (laxative) 500 mg 500 mg PO DAILY #90 tabs 01/08/22 tablet (Citrucel) oxybutynin chloride 10 mg 10 mg PO DAILY 30 days #30 tabs 11/29/22 tablet,extended release 24 hr sennosides 8.6 mg tablet (senna) 17.2 mg (2 x 8.6 mg) PO BEDTIME 08/01/23 #180 tabs lisinopril 5 mg tablet 5 mg PO DAILY #30 tabs 10/14/23 Allergies Allergy/AdvReac Type Severity Reaction Status Date / Time Penicillins Allergy Intermediate RASH,SWELLI Verified 11/19/22 13:17 NG sulfamethoxazole Allergy Intermediate RASH,SWELLI Verified 11/19/22 13:17 [From Bactrim] NG trimethoprim [From Bactrim] Allergy Intermediate RASH,SWELLI Verified 11/19/22 13:17 NG Review of Systems Review of Systems: Yes all other systems are reviewed and are negative [facility] Past Medical History [facility] Narrative: Past medical history: Asthma, GERD, stroke 2000, antiphospholipid syndrome not on anticoagulants. Social history: She stop smoking cigarettes 2 months prior she does have a 17 pack-year history of smoking. She denies alcohol and drug use. Medical History Asthma CVA (cerebral vascular accident) Surgical History H/O colonoscopy History of back surgery History of esophagogastroduodenoscopy (EGD) Hx of cystoscopy Hx of elbow surgery Hx of hysterectomy Social History Social History Advance Directives: No Advance Directives Information Provided: Yes Physical Exam ED Vital Signs: Vital Signs - 24 hr 10/14/23 17:48 10/14/23 21:18 Temperature 97 F Pulse Rate 70 86 Respiratory Rate 18 20 Blood Pressure 135/77 112/73 Pulse Oximetry 98 98 Oxygen Delivery Method Room Air Room Air BMI result Body Mass Index 29.7 Vital signs were normal Exam: General: Awake, alert in no distress Head: Normocephalic, atraumatic EENT: PERRL, Lids normal, sclera normal, conjunctiva normal, nose normal , ears normal, throat without erythema or exudates Neck: Supple, no adenopathy Lung: breath sounds symmetric, no wheezing, rales or rhonchi Chest: symmetric movement, nontender Heart: regular rate and rhythm, normal S1, S2 no murmurs or rubs Abdomen: soft, non-tender, nondistended, normal bowel sounds Back: no vertebral tenderness, no CVAT Extremities: no deformities, moves all extremities symmetrically Neuro: Awake, alert, oriented, normal speech, cranial nerves intact, moves all extremities symmetrically Psych: Pleasant, cooperative Medications Administered Discontinued Medications Generic Name Dose Route Start Last Admin Trade Name Freq PRN Reason Stop Dose Admin Lisinopril 5 mg 10/14/23 20:39 10/14/23 20:52 Lisinopril 5 Mg Tablet PO 10/14/23 20:40 5 mg ONCE ONE Administration Protocol Medical Decision Making Medical Decision Making MDM Narrative: 58-year-old female who presents emergency department for evaluation of headache, blurred vision, elevated blood pressure, shortness of breath, weakness and chest pain. Patient states that she has been monitoring her blood pressure over the last 1-2 months with her systolic blood pressure ranging from 147-175. Patient checked her blood pressure this morning was high, she then developed headache, blurred vision, chest pain and came to the emergency department by ambulance. She was given nitroglycerin and aspirin with improvement of her symptoms. Vital signs emergency depart normal physical examination was unremarkable Differential diagnosis: ?Includes but is not limited to stroke, myocardial infarction, myocardial ischemia, electrolyte abnormalities, liver failure, renal failure, anemia Following evaluation was ordered: CBC, CMP, PT/INR, troponin, lipase, chest x-ray, EKG Course: My interpretation patient's laboratory evaluation is as follows: CBC and CMP were normal. Patient's 1st high seek troponin I was elevated at 40.5, repeat was 44.6 which was not 50% delta suggesting the patient has not had any myocardial injury is the cause for chest pain Patient's chest x-ray was unremarkable pain Patient's symptoms are most likely caused by stress hyperventilation syndrome but I do believe that she has elevated blood pressures and would benefit from treatment. Patient was started on lisinopril 5 mg once a day and given her 1st dose here in the emergency department. She was given printed and verbal instructions discharged home. Admission/Observation Consideration of admission/observation: Escalation of care including admission/observation considered Lab Data MDM Lab Attestation statement: I reviewed the patient's lab results. 10/14/23 15:22 10/14/23 15:22 Labs: Lab Results 10/14/23 10/14/23 Range/Units 15:22 19:13 WBC 6.7 (4.8-10.8) X10*3/uL RBC 4.37 (4.20-5.50) X10*6/uL Hgb 13.1 (12.0-16.0) g/dl Hct 40.4 (37.0-47.0) % MCV 92.4 (80.0-98.0) fL MCH 30.0 (27.0-33.0) pg MCHC 32.4 (31.0-35.0) g/dl RDW 12.5 (11.0-16.0) % Plt Count 253 (160-400) X10*3/uL MPV 9.3 L (9.4-12.3) fL Immature Gran % (Auto) 0.3 (0.0-0.4) % Neut % (Auto) 60.0 (45-73) % Lymph % (Auto) 33.4 (20-40) % [place] % (Auto) 5.5 (2-11) % Eos % (Auto) 0.7 (0-4) % Baso % (Auto) 0.1 (0-2) % Lymph # (Auto) 2.3 (1.2-4.9) X10*3/uL [place] # (Auto) 0.4 (0.1-1.2) X10*3/uL Eos # (Auto) 0.1 (0.0-0.4) X10*3/uL Baso # (Auto) 0.0 (0.0-0.2) X10*3/uL Abs Immat Gran (auto) 0.02 (0.00-0.03) X10*3/uL Absolute Neuts (auto) 4.0 (2.0-8.3) x10*3/uL Absolute Nucleated RBC 0.000 (0.0-0.012) X10*3/uL Nucleated RBC % (auto) 0.0 (0.0-0.2) /100WBC APTT 30.0 (26.0-36.8) SEC Sodium 141 (135-145) mmol/L Potassium 4.3 (3.3-5.1) mmol/L Chloride 106 (96-108) mmol/L Carbon Dioxide 27 (22-29) mmol/L Anion Gap 12 (12-20) BUN 18 H (9-16) mg/dL Creatinine 0.83 (0.5-1.4) mg/dL Estim Creat Clear Calc 72.1 Estimated GFR > 60 Random Glucose 101 (60-115) mg/dL Calcium 9.7 (8.4-10.2) mg/dL Total Bilirubin 0.8 (0.0-1.0) mg/dL AST 19 (5-31) U/L ALT 23 (0-31) U/L Alkaline Phosphatase 87 (39-117) U/L Troponin I High Sens 40.5 H 44.6 H (<3.5-17.0) ng/L Total Protein 7.4 (6.5-8.0) g/dL Albumin 4.5 (3.5-5.0) g/dL Lipase 29 (8-78) U/L Independent Interpretation I performed an independent interpretation of an: EKG and Plain X-Ray Interpretation: My independent interpretation patient's chest x-ray is as follows: No acute disease My independent interpretation patient's 12 EKG is as follows: Normal sinus rhythm rate of 70, normal VA interval, QRS duration QTC interval, no ST segment elevation, no ST segment depression, no PACs, no PACs, no T-wave abnormalities Radiology Impression Discussion of test interpretation with radiology: I have reviewed the radiologist's reading. Radiologist Impression: XR chest 1V IMPRESSION: Unremarkable chest examination. Dictated By: Hola Ruiz MD Independent Historian Clinical information obtained from an independent historian. History obtained from or confirmed by: Other ([facility]) Prescription Management I considered prescription management with: Other (Antihypertensive medications) Discharge Plan Discharge Clinical Impression: Headache, Chest pain Hypertension Qualifiers: Hypertension type: primary hypertension Qualified Code(s): I10 - Essential (primary) hypertension Patient Disposition: Home, Self-Care Additional Instructions: High blood pressure instructions: I am starting you on the blood pressure medicine called lisinopril 5 mg once a day. You were given your 1st dose tonight but when you get the medication take another dose tomorrow then each morning. I gave you a 1 month supply in you will need to get refills from your doctor. The reason to check your blood pressure at home is to give your doctor an idea of what your blood pressure does when you are not in the doctor's office. Take your blood pressure in the mornings, Mondays , Wednesdays and Fridays and then write down these readings to discuss them with your doctor at your next visit. Do this for 2 weeks. If your doctor thinks that your blood pressures are too high then they will either increase your high blood pressure medication until they get to the maximum dose for lisinopril. If you continue to have high blood pressure despite being on the maximum dose of lisinopril, then your doctor will start you on a 2nd high blood pressure medication. If your doctor changes your blood pressure medications it will take anywhere from 2-6 week before these medications work to reduce your blood pressure. Follow-up with your doctor to discuss your blood pressure readings in 2 weeks Please return to the emergency department if your symptoms get worse or if you develop any new symptoms that are concerning to you. For your headache and chest pain take Tylenol 500 mg pills, 2 pills every 6 hours as needed Prescriptions: New lisinopril 5 mg tablet 5 mg PO DAILY Qty: 30 0RF No Action tizanidine 2 mg tablet 2 mg PO BID PRN (Reason: muscle spasticity) Qty: 60 0RF Rx Instructions: Be sure to avoid taking with Klonopin or Ambien oxybutynin chloride 10 mg tablet extended release 24hr 10 mg PO DAILY 30 Days Qty: 30 1RF sennosides [senna] 8.6 mg tablet 17.2 mg PO BEDTIME Qty: 180 0RF cyclobenzaprine 10 mg tablet 10 mg PO Q8H PRN (Reason: Muscle spasm) Qty: 14 0RF gpcnedowfe-xyjrdackgrqlh-mead [Fioricet] 50-300-40 mg capsule 1 cap PO Q4H PRN zolpidem [Ambien] 5 mg tablet 5 mg PO BEDTIME PRN hydrocortisone 2.5 % cream 1 applic topical BID PRN duloxetine 20 mg capsule,delayed release(DR/EC) 20 mg PO BID clonazepam [Klonopin] 1 mg tablet 1 mg PO BID gabapentin 300 mg capsule 300 mg PO DAILY aspirin [Adult Aspirin Regimen] 81 mg tablet,delayed release (DR/EC) 81 mg PO DAILY fluticasone propionate 50 mcg/actuation spray,suspension 1 spray intranasal DAILY Rx Instructions: administer into each nostril ergocalciferol (vitamin D2) 1,250 mcg (50,000 unit) capsule 1,250 mcg PO QWEEK phenazopyridine 200 mg tablet 200 mg PO TID albuterol sulfate 2.5 mg /3 mL (0.083 %) solution for nebulization 2.5 mg inhalation Q6H Flovent HFA 220 mcg/actuation HFA aerosol inhaler 1 puff inhalation BID Citrucel 500 mg tablet 500 mg PO DAILY Qty: 90 2RF Rx Instructions: take it with full glass of water Linzess 290 mcg capsule 290 mcg PO QAM albuterol sulfate [Ventolin HFA] 90 mcg/actuation HFA aerosol inhaler 0 mcg inhalation Q4-6H PRN gabapentin 100 mg capsule 100 mg PO BEDTIME Interventions: ED Discharge Assessment Last Done: 10/14/23 21:18 Discharge Date/Time: 10/14/23 21:19
--- NOTE | 2023-10-14 14:32 | ECG_ITS ---
Test Reason : CHEST PAIN Blood Pressure : / mmHG Vent. Rate : 070 BPM Atrial Rate : 070 BPM P-R Int : 168 ms QRS Dur : 076 ms QT Int : 384 ms P-R-T Axes : 034 -09 006 degrees QTc Int : 414 ms Normal sinus rhythm Minimal voltage criteria for LVH, may be normal variant ( R in aVL ) Borderline ECG When compared with ECG of 20-FEB-2019 23:47, No significant change was found Referred By: Kirk Liriano Electronically Signed By:Mahad Moss
[2023-10-14 15:27] LABS: MANUAL DIFF FLAG NO
[2023-10-14 15:42] LABS: Basophils Percent Auto 0.1 % (0-2); Eosinophils Absolute Auto 0.1 X10*3/uL (0.0-0.4); Eosinophils Percent Auto 0.7 % (0-4); Hematocrit 40.4 % (37.0-47.0); Hemoglobin 13.1 g/dl (12.0-16.0); Imm Gran Abs Auto 0.02 X10*3/uL (0.00-0.03); Imm Gran Pct Auto 0.3 % (0.0-0.4); Lymphocytes Absolute Auto 2.3 X10*3/uL (1.2-4.9); Lymphocytes Percent Auto 33.4 % (20-40); Mean Corpuscular HGB Conc 32.4 g/dl (31.0-35.0); Mean Corpuscular Volume 92.4 fL (80.0-98.0); Mean Platelet Volume 9.3 fL (9.4-12.3); Monocytes Absolute Auto 0.4 X10*3/uL (0.1-1.2); Monocytes Percent Auto 5.5 % (2-11); Platelet Count 253 X10*3/uL (160-400); Red Blood Count 4.37 X10*6/uL (4.20-5.50); Red Cell Distribution Width 12.5 % (11.0-16.0); White Blood Count 6.7 X10*3/uL (4.8-10.8)
[2023-10-14 15:52] LABS: Alanine Aminotransferase 23 U/L (0-31); Albumin Level 4.5 g/dL (3.5-5.0); Alkaline Phosphatase 87 U/L (39-117); Anion Gap 12 (12-20); Aspartate Amino Transferase 19 U/L (5-31); Bilirubin Total 0.8 mg/dL (0.0-1.0); Blood Urea Nitrogen 18 mg/dL (9-16); Calcium 9.7 mg/dL (8.4-10.2); Carbon Dioxide 27 mmol/L (22-29); Chloride 106 mmol/L (96-108); Creatinine Clr Calc Pharmacy 72.1; Estimated Glomerular Filt Rate > 60; Glucose Random 101 mg/dL (60-115); Lipase 29 U/L (8-78); Potassium 4.3 mmol/L (3.3-5.1); Sodium 141 mmol/L (135-145); Total Protein 7.4 g/dL (6.5-8.0)
[2023-10-14 15:59] LABS: Troponin-I High Sensitivity 40.5 ng/L (<3.5-17.0)
[2023-10-14 17:48] VITALS: BP 135/77; PULSE 70; RESP 18; O2SAT 98
[2023-10-14 19:39] LABS: Troponin-I High Sensitivity 44.6 ng/L (<3.5-17.0)
[2023-10-14] MEDS: lisinopriL 5 MG TABLET PO (20:52)
[2023-10-14 21:18] VITALS: BP 112/73; PULSE 86; RESP 20; TEMP 36.1; O2SAT 98
== END 2023-10-14 21:19 | disposition home or self-care (01) ==
PROVIDERS: Emergency Provider Emergency Medicine Emergency Medical Services; PCP Internal Medicine
DX: R51.9 Headache, unspecified (principal); H53.8 Other visual disturbances; R06.02 Shortness of breath; R07.89 Other chest pain; I10 Essential (primary) hypertension; Z79.899 Other long term (current) drug therapy
CPT/HCPCS: 36415; 71045; 80053; 83690; 84484; 85025; 85730; 93005; 99283; 99284

== ENCOUNTER → 2023-10-14 14:32 | Outpatient (BNV) | payer MEDICAID, SELFPAY | PROVIDERS: Emergency Provider Emergency Medicine Emergency Medical Services; PCP Internal Medicine; Visit Provider Internal Medicine Cardiovascular Disease | DX: R07.9 Chest pain, unspecified (principal) | CPT/HCPCS: 93010 ==

== ENCOUNTER 2023-10-31 10:58 | Outpatient (REF) | payer MEDICAID, SELFPAY ==
[2023-10-31 12:52] LABS: Anion Gap 13 (12-20); Blood Urea Nitrogen 15 mg/dL (9-16); Calcium 9.6 mg/dL (8.4-10.2); Carbon Dioxide 26 mmol/L (22-29); Chloride 106 mmol/L (96-108); Estimated Glomerular Filt Rate > 60; Glucose Random 97 mg/dL (60-115); Potassium 3.7 mmol/L (3.3-5.1); Sodium 141 mmol/L (135-145)
== END 2023-10-31 10:59 | disposition home or self-care (01) ==
LOC: HO.HHCL 10:58
PROVIDERS: Visit Provider Family Medicine
DX: I10 Essential (primary) hypertension (principal)
CPT/HCPCS: 36415; 80048

== ENCOUNTER 2023-12-09 11:15 | Outpatient (REF) | payer MEDICAID, SELFPAY ==
[2023-12-09 13:53] LABS: Anion Gap 18 (12-20); Blood Urea Nitrogen 16 mg/dL (9-16); Calcium 10.1 mg/dL (8.4-10.2); Carbon Dioxide 25 mmol/L (22-29); Chloride 102 mmol/L (96-108); Estimated Glomerular Filt Rate > 60; Glucose Random 97 mg/dL (60-115); Potassium 3.6 mmol/L (3.3-5.1); Sodium 141 mmol/L (135-145)
== END 2023-12-09 11:16 | disposition home or self-care (01) ==
LOC: HO.HHCL 11:15
PROVIDERS: Visit Provider Internal Medicine
DX: I10 Essential (primary) hypertension (principal); R07.89 Other chest pain; Z86.73 Personal history of transient ischemic attack (TIA), and cerebral infarction without residual deficits
CPT/HCPCS: 36415; 80048; 93005; 99202

== ENCOUNTER 2023-12-09 12:43 | Outpatient (AMB) | payer MEDICAID, SELFPAY ==
--- NOTE | 2023-12-09 13:06 | MHC.OFFVIS ---
Vital Signs 12/09/23 13:07 Height 5 ft 3 in Weight 167 lb 8.821 oz BMI 29.7 BP 120/80 Blood Pressure Location Lt brachial Position Sitting Pulse 101 H Intake Visit Reasons: f/u hmd ed d/c /prev NS pt Intake Note: New patient seen was in the ED in September ekg today c/o sob Video Editor Required: Yes Video Editor Name: daughter Visual Lead: Visual Lead Present Accompanied by: Daughter Allergies Penicillins Allergy (Intermediate, Verified 11/19/22 13:17) RASH,SWELLING sulfamethoxazole [From Bactrim] Allergy (Intermediate, Verified 11/19/22 13:17) RASH,SWELLING trimethoprim [From Bactrim] Allergy (Intermediate, Verified 11/19/22 13:17) RASH,SWELLING Medication List - Last Reconciled 12/09/23 by Reginald Morales MD albuterol sulfate 2.5 mg inhalation Q6H albuterol sulfate 90 mcg/actuation (Ventolin HFA) 0 mcg inhalation Q4-6H PRN aspirin (Adult Aspirin Regimen) 81 mg PO DAILY clonazepam (Klonopin) 1 mg PO BID cyclobenzaprine 10 mg PO Q8H PRN diphenhydramine HCl (Banophen) 25 - 50 mg PO BEDTIME ergocalciferol (vitamin D2) 1,250 mcg PO QWEEK fluticasone propionate 50 mcg/actuation 1 spray intranasal DAILY fluticasone propionate 220 mcg/actuation (Flovent HFA) 1 puff inhalation BID gabapentin 300 mg PO DAILY gabapentin 100 mg PO BEDTIME hydrochlorothiazide 12.5 mg PO QAM hydrocortisone 2.5% 1 appl topical BID PRN linaclotide (Linzess) 290 mcg PO QAM methylcellulose (laxative) (Citrucel) 500 mg PO DAILY phenazopyridine 200 mg PO TID sennosides (senna) 17.2 mg (2 x 8.6 mg) PO BEDTIME tizanidine 2 mg PO BID PRN zolpidem (Ambien) 5 mg PO BEDTIME PRN HPI Comments Details: Sarah was referred here for further evaluation because of symptoms of chest pain. Patient is 58-year-old female, with prior history of CVA and she says she had antiphospholipid antibody syndrome but currently not on oral anticoagulation therapy. She said this was discontinued after 4-5 year use. Unclear as to the cause. Patient says over the last many months he she has been having elevated blood pressure readings. She is accompanied by her daughter who acts as options trader. Declined a certified options trader. Patient then present recently to the emergency room and was started on hydrochlorothiazide 12.5 mg daily. She said the blood pressure is now improved but still remains significantly elevated at times when she measures it at home. Systolic blood pressure often in 130/90 range. In the past he is to be 150/100 range. She is a when the blood pressure is elevated she does get symptoms of chest pressure heaviness. She also has symptoms of exertional shortness of breath. She denies any clear orthopnea, PND, leg edema. She denies any symptoms of prolonged palpitation irregular heartbeat. She is worried about these elevated blood pressure findings. [facility] Medical History CVA (cerebral vascular accident) Asthma Surgical History Hx of hysterectomy History of back surgery Hx of elbow surgery Hx of cystoscopy History of esophagogastroduodenoscopy (EGD) H/O colonoscopy Review of Systems Const Denies chills, Denies daytime sleepiness, Denies fatigue, Denies fever(s), Denies frequent falls, Denies poor appetite, Denies snoring, Denies stops breathing during sleep, Denies weakness, Denies weight gain and Denies weight loss Eyes Denies loss of vision ENT Denies dizziness and Denies hearing loss Card Denies chest pain, Denies claudication, Denies leg edema, Denies lightheadedness, Denies palpitations, Denies dyspnea, Denies dyspnea on exertion and Denies orthopnea Resp Denies cough, Denies excessive phlegm production, Denies dyspnea, Denies dyspnea on exertion, Denies snoring and Denies wheezing GI Denies abdominal pain, Denies hematochezia, Denies change in bowel habits, Denies nausea and Denies vomiting Denies urinary frequency and Denies dysuria Musc Denies arthralgias, Denies muscle weakness, Denies numbness and Denies other (frequent falls) Skin/Breast Denies nail changes and Denies rash Neuro Denies Abnormal speech present, Denies dizziness, Denies frequent falls, Denies loss of vision, Denies memory loss, Denies numbness and Denies weakness Psych Denies depression and Denies memory loss Endo Denies fatigue and Denies palpitations [place]/Lymph Reports easy bruising and Reports other (anemia) Aller/Immun Denies wheezing Physical Exam Vital Signs: Last Vital Signs Pulse 101 H 12/09/23 13:07 BP 120/80 12/09/23 13:07 BMI result Body Mass Index 29.7 Const General: cooperative, comfortable, no acute distress, alert and awake Nutritional Appearance: overweight Orientation/consciousness: patient oriented x3 Limitations: no limitations HEENT Head: Yes normocephalic and Yes atraumatic Neck Neck: Yes trachea midline, Yes supple and Yes no JVD Resp Effort & Inspection: normal respiratory effort Auscultation: clear to auscultation bilaterally Cardio Jugular venous distension: no JVD Palpation: normal PMI Rate: regular rate Rhythm: regular rhythm Heart sounds: S1 normal heart sound present, S2 normal heart sound present, no click, no gallops, no murmurs and no rubs GI Auscultation: normal bowel sounds Skin General skin exam: no rashes or lesions noted Neuro General: patient oriented x3 and no focal motor deficits Speech: No Abnormal speech present Extrem General: Yes no clubbing, cyanosis or edema Office Procedures EKG Details: EKG shows sinus tachycardia with poor R-wave progression most likely due to lead placement [id number], Complete Assessment & Plan Assessment & Plan (1) Atypical chest pain: Code(s): R07.89 - Other chest pain Category: Medical Plan: Patient with syndrome atypical chest pain the setting of elevated blood pressure. This could represent subendocardial ischemia related to elevated blood pressure although myocardial ischemia needs to be ruled out. Will suggest exercise myocardial perfusion imaging to further assess for the same. Also suggest echocardiogram to evaluate LV systolic and diastolic function to evaluate for hypertensive heart disease as well as pulmonary hypertension. These tests will be scheduled in near future. Further treatment based on the findings. (2) Hypertension: Code(s): I10 - Essential (primary) hypertension Category: Medical Qualifiers: Hypertension type: primary hypertension Qualified Code(s): I10 - Essential (primary) hypertension Plan: Hypertension which on today's exam appears to be well optimized although she says at home her blood pressures very elevated. Advised to monitor blood pressure at home maintain a log. Will increase hydrochlorothiazide to 25 mg daily. Advised low-salt diet. Advise adequate hydration. She is advised to follow up in the clinic with a blood pressure log and a blood pressure machine to calibrate her machine to over blood pressure monitoring device. Will follow up in the clinic in 6 weeks time, sooner p.r.n.. Thank you for allowing me to partake in her care Orders: Orders CA stress test Today R07.89 - Other chest pain NM cardiolite stress test 2 Weeks R07.89 - Other chest pain, R07.9 - Chest pain, unspecified CA echo transthoracic complete Today R07.89 - Other chest pain Medications: New hydrochlorothiazide 25 mg PO DAILY 30 tabs 5RF R07.89 - Other chest pain Coding Level of Care Code New Pt Level 4 (68259) Diagnoses Atypical chest pain R07.89 Hypertension I10 Hypertension type: primary hypertension CPT Codes EKG - CPT: 75117-[id number], Complete ([id number])
[2023-12-09 13:07] VITALS: BP 120/80; PULSE 101; BMI 29.7
== END 2023-12-09 13:47 | disposition home or self-care (01) ==
PROVIDERS: PCP Internal Medicine; Visit Provider Internal Medicine Cardiovascular Disease
DX: R07.89 Other chest pain (principal); I10 Essential (primary) hypertension
CPT/HCPCS: 93010; 99204

== ENCOUNTER → 2024-01-02 12:37 | Outpatient (REF) | payer MEDICAID, SELFPAY ==
--- NOTE | 2024-01-02 12:41 | CA_ITS ---
Transthoracic Echocardiogram Patient (Last, First, Middle): Annabella Gillespie I Gender: Female Date of : 1965 Age: 58 Procedure Date: 01/02/2024 Procedure Type: Transthoracic Echocardiogram Location: OP Height: 160.02 cm Weight: 72.58 kg BSA: 1.76 m2 Heart Rate: bpm BP: 124 / 80 mmHg Water Restoration Technician: Referring MD: Reginald Morales MD Symptoms: R07.89 - Other chest pain Study Quality: Good ECG Rhythm: Sinus Conclusions: - The left ventricular systolic function is normal. The calculated ejection fraction is 67% by biplane method. - No obvious valvular pathology seen on this study. Findings Left Ventricle Normal left ventricular cavity size. There is normal left ventricular wall thickness. The left ventricular systolic function is normal. The calculated ejection fraction is 67% by biplane method. There is no evidence of regional wall motion abnormalities. Evidence suggests grade I (mild) diastolic dysfunction. Right Ventricle Normal right ventricular cavity size and systolic function. Atria Both atria are normal in size. Aortic Valve There is a normal trileaflet aortic valve. There is no aortic valve stenosis. There is no aortic valve regurgitation. Mitral Valve The mitral valve appears normal. There is no mitral valve regurgitation. There is no mitral valve stenosis. Pulmonic Valve The pulmonic valve is likely normal. Tricuspid Valve Normal tricuspid valve structure. There is trace tricuspid valve regurgitation. There is no evidence of pulmonary hypertension. Great Vessels The asc aorta is normal in size. Venous The inferior vena cava is normal in size and collapses greater than 50% with inspiration. Pericardium/Pleural There is no evidence of pericardial effusion. Prior Study Comparison No prior study available for comparison. Recommendations, Care & Conclusions No obvious valvular pathology seen on this study. Measurements 2D Linear Measurements IVSd: 1.01 0.6-0.9/0.6-1.0 cm LVIDd: 3.96 3.9-5.3/4.2-5.9 cm LVIDd Index: 2.25 2.4-3.2/2.2-3.1 cm/m2 LVIDs: 2.27 2.0-3.6 cm LVPWd: 1.02 0.7-1.1 cm Ao Root: 3.10 2.1-3.5 cm LA Diam: 2.90 2.7-3.8/3.0-4.0 cm LAIDs Index: 1.65 1.5-2.3 cm/m2 LV Mass: 158.94 67-162/88-224 g LV Mass Index: 90.30 43-95/49-115 g/m2 LVOT Diam: 2.00 3.0+(-)1.3 cm 2D Systolic Function EF 4C: 65.00 >55% EF 2C: 69.00 >55% EF BiP: 66.80 >55% Mitral Valve MV VTI: 0.30 MV Pk Shane: 1.31 MV Mn Shane: 0.78 MV Pk Grad: 7.00 MV Mn Grad: 3.00 MV Pk E: 0.96 MV PK A: 1.12 MV Decel Time: 164.00 E/A: 0.90 E'Lateral: 11.60 E'Medial: 5.33 E/E' Med: 18.00 E/E' Lat: 8.30 PHT: 48.00 MVA PHT: 4.58 MVA Continuity: 2.65 Decel Grady: 5.84 Aortic Valve AoV Pk Shane: 1.56 AoV Mn Shane: 0.95 AoV VTI: 0.33 AoV Pk Grad: 10.00 Aov Mn Grad: 4.00 EMMA Cont.VTI: 2.47 LVOT LVOT Pk Shane: 1.10 LVOT Mn Shane: 0.73 LVOT VTI: 0.26 LVOT Pk Grad: 5.00 LVOT Mn Grad: 3.00 LVOT Diam: 2.00 LVOT Area: 3.14 Diastolic Function MV Pk E: 0.96 MV Pk A: 1.12 E/A: 0.90 E'Medial: 5.33 E/E' Med: 18.00 E' Laterial: 11.60 E/E' Lat: 8.30 Right Ventricle TAPSE (mm): 29.00 TVS' Shane: 12.00 Tricuspid Valve TR Pk Shane: 1.99 TR Pk Grad: 16.00 RA Press: 3.00 RVSP: 19.00 Great Vessels Aorta Ao Root-2D: 3.10 2.0-3.7 cm Ao Asc: 3.40 2.1-3.4 cm Pulmonary Valve PV Pk Shane: 1.09 Peak PV Grad: 5.00 Updated in Other Vendor System with Status of Final Mason aHm MD electronically signed on 01/04/2024 11:53:11 AM with status of Final
== END ==
LOC: HO.CARD 12:37
PROVIDERS: PCP Internal Medicine; Visit Provider Internal Medicine Cardiovascular Disease
DX: R07.89 Other chest pain (principal)
CPT/HCPCS: 93306

== ENCOUNTER → 2024-01-02 12:41 | Outpatient (BNV) | payer MEDICAID, SELFPAY | PROVIDERS: PCP Internal Medicine; Visit Provider Internal Medicine | DX: R07.89 Other chest pain (principal); R93.1 Abnormal findings on diagnostic imaging of heart and coronary circulation | CPT/HCPCS: 93306 ==

== ENCOUNTER → 2024-02-02 09:04 | Outpatient (REF) | payer MEDICAID, SELFPAY ==
--- NOTE | ~2024-02-02 | NM_ITS ---
Lexiscan Myocardial perfusion study Indication: Chest pain, assess for coronary disease and ischemia Technique: The patient was brought in for a Lexiscan perfusion study on 02/02/2024 and was injected 0.4 mg of Lexiscan intravenously. Within a minute of this injection 25 mCi of sestamibi was given intravenously. Images were obtained using the SPECT gamma camera interlaced with the gating device. Images were obtained in supine position. Resting perfusion study was performed on 02/04/2024. Patient was administered 25 mCi of sestamibi intravenously at rest. Images were then obtained in supine position. Images were processed with the software and compared side to side in short axis, horizontal long axis and vertical long axis views. Total DLP 95mGy-cm. Findings: Raw acquisition reviewed. The stress perfusion study showed no significant perfusion abnormality. Both uncorrected as well as CT attenuation corrected images were reviewed. The gated study shows normal LV systolic function with calculated LVEF of 73%. LV cavity is normal in size. The gated study shows normal wall thickening and contraction of segments. Resting study shows no significant perfusion abnormality. Gating at rest reveals normal wall motion with ejection fraction at 69%. The findings are consistent with no clear reversible or fixed perfusion abnormality. NM/NM cardiolite stress test Impression: 1. Myocardial perfusion imaging study shows normal myocardial perfusion. 2. Gated LVEF is 73% during stress and 69% during rest. 3. Transient ischemic dilatation not present. EKG component of the test reported separately.
--- NOTE | 2024-02-02 09:06 | CA_ITS ---
Acquisition Time: 2024-02-02 09:15:40 Total Exercise Time: 00:06:00 Test Indications: Chest Pain Medications: SEE H Protocol: LEE ANN Max HR: 148 BPM 91% of Pred: 162 BPM Max BP: 134/076 mmHG Max Work Load: 7.0 METS Exercise stress test exercise 6 min of Lee Ann protocol achieving 90% MPHR, without anginal symptoms, without arrhythmias, with brisk HR response 77% by 2 min exercise, with normotensive response to exercise, without EKG chnages. Nuclear images pending. Test reviewed with Dr. Morales Referred By: Reginald Morales Overread By: Andra Lima
== END ==
LOC: HO.CARD 09:04
PROVIDERS: PCP Internal Medicine; Visit Provider Internal Medicine Cardiovascular Disease
DX: R07.89 Other chest pain (principal)
CPT/HCPCS: 78452; 93017; A9500

== ENCOUNTER → 2024-02-02 09:06 | Outpatient (BNV) | payer MEDICAID, SELFPAY | PROVIDERS: PCP Internal Medicine; Visit Provider Nurse Practitioner | DX: R07.9 Chest pain, unspecified (principal) | CPT/HCPCS: 78452; 93016; 93018 ==

== ENCOUNTER 2024-03-02 08:57 | Outpatient (REF) | payer MEDICAID, SELFPAY ==
[2024-03-02 12:22] LABS: Anion Gap 11 (12-20); Blood Urea Nitrogen 16 mg/dL (9-16); Calcium 9.3 mg/dL (8.4-10.2); Carbon Dioxide 25 mmol/L (22-29); Chloride 107 mmol/L (96-108); Estimated Glomerular Filt Rate > 60; Glucose Random 105 mg/dL (60-115); Potassium 3.6 mmol/L (3.3-5.1); Sodium 139 mmol/L (135-145)
[2024-03-05 13:58] LABS: Anti Nuclear Antibody Screen NEGATIVE (NEGATIVE)
[2024-03-06 04:39] LABS: PTT (LAC) Screen 30 sec (<=40)
== END 2024-03-02 08:58 | disposition home or self-care (01) ==
LOC: HO.HHCL 08:57
PROVIDERS: Visit Provider Internal Medicine
DX: D68.61 Antiphospholipid syndrome (principal); I10 Essential (primary) hypertension
CPT/HCPCS: 36415; 80048; 85597; 85598; 85613; 85730; 86038

== ENCOUNTER 2024-04-16 14:37 | Outpatient (REF) | payer MEDICAID, SELFPAY ==
--- NOTE | ~2024-04-16 | CT_ITS ---
EXAMINATION: CT HEAD WITHOUT CONTRAST CLINICAL INFORMATION: Headache, facial droop COMPARISON: None available. TECHNIQUE: Contiguous axial imaging was performed from the skull base to vertex without intravenous administration of contrast. This CT examination was performed using dose optimization techniques as appropriate, variously including the following: *Automated exposure control *Adjustment of mA and/or kV according to patient size (this includes techniques or standardized protocols for targeted exams where dose is matched to indication/reason for exam; i.e. extremities or head) *Use of iterative reconstruction technique DLP: 552 mGy-cm FINDINGS: There is no evidence of acute intracranial hemorrhage or edematous territorial infarction. Garcia-white matter differentiation appears preserved. The ventricles are normal in morphology and size. No significant chronic microangiopathy. 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 No abnormal mass effect or midline shift. No extra-axial fluid collections. No acute soft tissue or osseous abnormalities. Small mucus retention cyst in the left sphenoid sinus. Otherwise the included paranasal sinuses and mastoids are well-aerated. CT/CT head/brain wo IV con IMPRESSION: No acute intracranial pathology. 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 Electronically signed by: Peter Weaver MD 04/16/2024 05:01 PM EDT
== END 2024-04-16 14:38 | disposition home or self-care (01) ==
LOC: HO.CT 14:37
PROVIDERS: PCP Registered Nurse; Visit Provider Registered Nurse
DX: R29.810 Facial weakness (principal); R51.9 Headache, unspecified
CPT/HCPCS: 70450

== ENCOUNTER → 2024-06-08 10:57 | Outpatient (BNV) | payer MEDICAID, SELFPAY | PROVIDERS: PCP Internal Medicine; Referring Provider Internal Medicine; Visit Provider Internal Medicine Medical Oncology | DX: D68.61 Antiphospholipid syndrome (principal) | CPT/HCPCS: 99204 ==

== ENCOUNTER 2024-06-08 12:05 | Outpatient (REF) | payer MEDICAID, SELFPAY | END 2024-06-08 12:06 | disposition home or self-care (01) | LOC: HO.XRAY 12:05 | PROVIDERS: PCP Internal Medicine; Visit Provider Internal Medicine Medical Oncology | DX: M89.8X1 Other specified disorders of bone, shoulder (principal); M53.3 Sacrococcygeal disorders, not elsewhere classified | CPT/HCPCS: 73010 ==

== ENCOUNTER 2025-01-20 09:47 | Outpatient (REF) | payer MEDICAID, SELFPAY ==
--- OUTSIDE RECORDS SUMMARY | 2025-01-20 10:19 | XMS_ITS | Encounter Summary ---
Author Organization [employer] [facility] Address [address] [place] [address] Care Team Providers Care Core Mounter Name Role Phone Ayala Mckay MD Primary Care Provider + Encounter Details Date Type Department Care Team (Late st Contact Info) Description 08/13/2022 Orders Only [facility] [address] [place] [address] [phone] Qian Bansal LPN Social History Tobacco Use Types Packs/Day Years Used Date Smoking Tobacco: Never Assessed Comments Unknown Sex and Gender Information Value Date Recorded Sex Assigned at Female 05/20/2022 10:14 AM EDT Legal Sex Female 10:14 AM EDT Gender Identity Female 05/20/2022 10:14 AM EDT Sexual Orientation Straight 05/20/2022 10 :14 AM EDT documented as of this encounter Plan of Treatment Upcoming Encounters Date Type Department Care Team (Late st Contact Info) Description 02/22/2025 9:45 AM EDT Office Visit [facility] [address] [place] [id number] Ayala Mckay MD [address] [place] [address] [phone] documented as of this encounter Visit Diagnoses Not on filedocumented in this encounter Care Teams Core Mounter Relationship Specialty Start Date End Date Ayala Mckay MD [address] [place] [address] [phone] PCP - General Family Medicine 08/08/16 Allison Almanza Station RepairerSales Service Promoter 01/08/24 documented as of this encounter
--- OUTSIDE RECORDS SUMMARY | 2025-01-20 10:19 | XMS_ITS | Patient Health Record ---
Author Organization [facility] Address [address] [place] [address] Care Team Providers Care President Finance Company Name Role Phone Nely AMBROSE, Ayala Primary Care Provider Unavail able Lew Diehl Unavailable [phone] Allergies Allergen (clinical drug ingredient) Drug/Non Drug Allergy documented on EMR Reaction Allergy Type Onset Date Status penicillamine Penicillamine Unknown Drug Allergy Active sulfamethoxazole / trimethoprim Bactrim Unknown Drug Allergy Active albuterol Albuterol Unknown Drug Allergy Active Reason For Referral No Information Medications Medication SIG (Take, Route, Frequency, Duration) Notes Start Date End Date Status MiraLax - 1 capful in 8 ounces of water Orally BID to TID for constipation for 30 days 10/29/2018 Active Elmiron 100 MG TAKE 2 CAPSULES TWIC E A DAY Oral for 30 Active Albuterol Sulfate (2.5 MG/3ML) 0.083% INHALE 1 VIAL VIA NEBULIZER 3 TIMES EVERY DAY NEEDED FOR SHORTNESS OF BREATH/ASTHMA Inhalation for 4 Active ProAir HFA 108 (90 Base) MCG/ACT TAKE 2 PUFFS BY MOUTH EVERY 4 TO 6 HOURS NEEDED Inhalation for 25 Active clonazePAM 1 MG (Schedule IV Drug) T MARIA ELENA 1 TABLET BY MOUTH TWICE A DAY NEEDED AND 1/2 AT BEDTIME. Oral for 30 Active Flovent HFA 110 MCG/ACT 1 puff Inhalatio n Twice a day Active Cyanocobalamin Activ e Aspirin 81 MG 1 tablet Orally Once a day Active Flax Seed Oil 1000 MG as directed Orally Active Flonase 50 MCG/ACT 1 spray in each nost ril Nasally Once a day Active Phenazopyridine HCl 200 MG TAKE 1 TABLET BY ORAL ROUTE 2-3 TIMES EVERY DAY AFTER MEALS NEEDED Oral for 20 Active MiraLax (colon prep) 8.3 ounce ((238) grams mixed with Gatorade or Crystal Light orally begin at 5:00 p.m. 2 days before the procedure for 2 days 11/09/2018 Active Linzess 290 MCG 1 capsule Orally Onc e a day for 30 day(s) Active Dulcolax (colon prep) 5 MG take at 3:00 p.m and 7:00p.m. Orally 2 tablets 2 days before the exam, then two tablets twice a day for one day for 2 days 11/09/2018 Active Fish Oil 1000 MG 1 capsule Orally Onc e a day for 30 day(s) Active Zolpidem Tartrate 10 MG (Schedule IV Bhaskar g) TAKE 1 TABLET BY MOUTH AT BEDTIME NEEDED INSOMNIA Oral for 30 Active Immunizations Vaccine Route Administration Date Status Comme nts Influenza Unknown 10/29/2018 Refused Social History Tobacco Use: Social History Observation Description Date Details (start date - stop date) Former Smoker NA - NA Tobacco Use/Smoking Question Answer Notes Patient is a former smoker Alcohol Screen Question Answer Notes Did you have a drink containing alcohol in the p ast year? No Points 0 Interpretation Negative Section Notes: She does smoke and uses occa sional alcohol. Nonsmoker since 07/2018; and uses only occasional alcohol. Problems Problem Type SNOMED Code ICD Code Onset Dates Problem Status W/U Status Risk Notes Problem 889756351 Encounter for screening for malignant neoplasm of colon (Z12.11) Active confirmed Problem 796588828 History of adenomatous polyp of colon (Z86.010) Active confirmed Problem 262623697 Family history o f colon cancer (Z80.0) Active confirmed Problem 63216628 Constipation, unspecified constipation type (K59.00) Active confirmed Plan Of Treatment Future Test Test Name Order Date COLONOSCOPY 03/16/2013 COLONOSCOPY 10/29/2018 Insurance Providers Payer Name Payer Address Payer Phone Subscriber Number Group Number Insured Name Patient Relationship to Insured Coverage Start Date Coverage End Date [facility] [address] [place] [phone] [id number] DOMINGO SANCHEZ Self - patient is the insured Medical (General) History Medical History History ICD Code [id number] hiatal h ernia-EGJ dilated with an 18mm balloon-has GERD and occ. dysphagia--felt to be c/w esophgeal spasm. FIBROMYALGIA B12 DEFICIENCY ASTHMA MIGRAINE DIZZINESS ANXIETY AND DEPRESSION ANTIPHOSPHOLIPID SYNDROME wi th a previous DVT-previously on Coumadin-sees Dr. Aden Campbellies [place],DM,renal disease Neg. colonoscopy in 11/2007 and in 11/1999 Constipation Mini-stroke in 2000 Colonoscopy in 03/2013-1 small tubular ad enoma Surgical History Surgery Date(Month/Year) cholecystectomy hysterectomy left elbow surgery back surgery
[2025-01-20 11:52] LABS: Alanine Aminotransferase 27 U/L (0-31); Albumin Level 4.7 g/dL (3.5-5.0); Alkaline Phosphatase 60 U/L (39-117); Anion Gap 13 (12-20); Aspartate Amino Transferase 30 U/L (5-31); Blood Urea Nitrogen 10 mg/dL (9-16); Calcium 9.6 mg/dL (8.4-10.2); Carbon Dioxide 27 mmol/L (22-29); Chloride 103 mmol/L (96-108); Cholesterol 195 mg/dL (<200); Estimated Glomerular Filt Rate > 60; HDL Cholesterol 50 mg/dL (>40); Potassium 4.1 mmol/L (3.3-5.1); Sodium 139 mmol/L (135-145); Total Protein 7.6 g/dL (6.5-8.0); Triglycerides 120 mg/dL (<150)
[2025-01-20 12:15] LABS: Folate 10.7 ng/mL (> or = 4.0); Vitamin B12 436 pg/mL (200-900)
[2025-01-20 13:14] LABS: Reflex LDLD? No
== END 2025-01-20 09:48 | disposition home or self-care (01) ==
LOC: HO.HHCL 09:47
PROVIDERS: PCP Internal Medicine; Visit Provider Internal Medicine
DX: I10 Essential (primary) hypertension (principal); E66.3 Overweight; E53.8 Deficiency of other specified B group vitamins
CPT/HCPCS: 36415; 80053; 80061; 82306; 82607; 82746; 84443

== ENCOUNTER 2025-02-22 09:43 | Outpatient (REF) | payer MEDICAID, SELFPAY ==
--- NOTE | ~2025-02-22 | XR_ITS ---
Examination: 5 view lumbar spine x-ray. TECHNIQUE: AP, lateral, lateral spot, and bilateral oblique views, lumbar spine x-ray INDICATION: Low back pain with left hip pain Prior: MRI from June 27, 2020 FINDINGS: There is a transitional S1 segment with mild lumbarization. There is mild chronic wedging of L1 and L2 superior endplates. T12-L1: There is mild loss of disc height and subtle retrolisthesis there is anterior osteophyte at L1. L1-L2: There is mild loss disc height and minimal retrolisthesis with anterior osteophytes L2-L3: There is mild loss disc height and mild grade 1 retrolisthesis with small anterior osteophytes L3-L4: There is minimal loss of disc height and subtle retrolisthesis with small endplate osteophytes. There is facet sclerosis. L4-L5: There is grade 1 anterolisthesis with mild to moderate loss of disc height and endplate osteophytes. There is facet sclerosis. L5-S1: There is mild loss disc height and minimal grade 1 anterolisthesis. There is facet sclerosis. There is an interspinous process metallic clamp. XR/XR lumbar spine 4V min IMPRESSION: Multilevel degenerative disc disease and facet osteoarthritis status post spinous process clamp at L5-S1. Electronically signed by: Adonis Bedoya MD 02/22/2025 11:25 AM EDT
--- NOTE | ~2025-02-22 | XR_ITS ---
EXAMINATION: XR HIP, LEFT CLINICAL INFORMATION: LBP/left hip pain COMPARISON: None available. TECHNIQUE: Two views of the left hip. FINDINGS: Hip joint spaces preserved. Minimal marginal ossified is present along the lateral femoral head and acetabular roof. There is possible vacuum phenomena in the left SI joint. There is sclerosis and asymmetric narrowing with mild offset involving the pubic symphysis joint. XR/XR hip LT min 2V IMPRESSION: Minimal degenerative changes in the left hip and SI joint. Moderate degeneration of the pubic symphysis joint. Electronically signed by: Adonis Bedoya MD 02/22/2025 11:20 AM EDT
--- OUTSIDE RECORDS SUMMARY | 2025-02-22 10:08 | XMS_ITS | Encounter Summary ---
Author Organization [employer] Address [address] [place] [address] Care Team Providers Care Light Rail Operator Name Role Phone Ayala Mckay MD Primary Care Provider + Reason for Visit * Reason Comments Med Refill Encounter Details Date Type Department Care Team (Late st Contact Info) Description 04/03/2023 Refill [facility] [address] [place], [place] [phone] Ayala Mckay MD [address], [place] [phone] Moderate persistent asthma without complication Social History Tobacco Use Types Packs/Day Years Used Date Smoking Tobacco: Never Assessed Comments Unknown Sex and Gender Information Value Date Recorded Sex Assigned at Female 05/20/2022 10:14 AM EDT Legal Sex Female 10:14 AM EDT Gender Identity Female 05/20/2022 10:14 AM EDT Sexual Orientation Straight 05/20/2022 10 :14 AM EDT documented as of this encounter Plan of Treatment Not on file documented as of this encounter Visit Diagnoses Diagnosis Moderate persistent asthma without complication documented in this encounter Care Teams Light Rail Operator Relationship Specialty Start Date End Date Ayala Mckay MD [address], [place] [phone] PCP - General Family Medicine 08/08/16 Allison Almanza Gericare Aide TeacherSenior Biostatistician 01/08/24 documented as of this encounter
--- OUTSIDE RECORDS SUMMARY | 2025-02-22 10:08 | XMS_ITS | Patient Health Record ---
Author Organization [facility] Address [address] [place] [address] Care Team Providers Care Product Designer Name Role Phone Nely AMBROSE, Ayala Primary Care Provider Unavail able Lew Diehl Unavailable [phone] Allergies Allergen (clinical drug ingredient) Drug/Non Drug [...] Problem Status W/U Status Risk Notes Problem [id number] Encounter for screening for malignant neoplasm of colon (Z12.11) Active confirmed Problem 240101291 History of adenomatous polyp of colon (Z86.010) Active confirmed Problem 758769029 Family history o f colon cancer (Z80.0) Active confirmed Problem 95732982 Constipation, unspecified constipation type (K59.00) Active confirmed Plan Of Treatment Future Test Test Name Order Date COLONOSCOPY 03/16/2013 COLONOSCOPY 10/29/2018 Insurance Providers Payer Name Payer Address Payer Phone Subscriber Number Group Number Insured Name Patient Relationship to Insured Coverage Start Date Coverage End Date [facility] [address] [place] [phone] [id number] DOMINGO SANCHEZ Self - patient is the insured Medical (General) History Medical History History ICD Code [id number] hiatal h ernia-EGJ dilated with an 18mm balloon-has GERD and occ. dysphagia--felt to be c/w esophgeal spasm. FIBROMYALGIA B12 DEFICIENCY ASTHMA MIGRAINE DIZZINESS ANXIETY AND DEPRESSION ANTIPHOSPHOLIPID SYNDROME wi th a previous DVT-previously on Coumadin-sees Dr. Aden Campbellies MD,DM,renal disease Neg. colonoscopy in 11/2007 and in 11/1999 Constipation Mini-stroke in 2000 Colonoscopy in 03/2013-1 small tubular ad enoma Surgical History Surgery Date(Month/Year) cholecystectomy hysterectomy left elbow surgery back surgery
== END 2025-02-22 09:44 | disposition home or self-care (01) ==
LOC: HO.HHCX 09:43
PROVIDERS: PCP Internal Medicine; Visit Provider Internal Medicine
DX: M99.89 Other biomechanical lesions of abdomen and other regions (principal); M70.72 Other bursitis of hip, left hip; M25.552 Pain in left hip; M54.50 Low back pain, unspecified
CPT/HCPCS: 72110; 73502

== ENCOUNTER → 2025-02-22 10:00 | Outpatient (BNV) | payer MEDICAID, SELFPAY | PROVIDERS: PCP Internal Medicine; Visit Provider Radiology Diagnostic Radiology | DX: M43.17 Spondylolisthesis, lumbosacral region (principal); M16.12 Unilateral primary osteoarthritis, left hip | CPT/HCPCS: 72110; 73502 ==

== ENCOUNTER 2025-04-14 10:12 | Outpatient (AMB) | payer MEDICAID, SELFPAY ==
--- NOTE | 2025-04-14 10:26 | MHC.OFFVIS ---
Intake Visit Reasons: BURSITIS OF LEFT HIP Allergies Penicillins Allergy (Intermediate, Verified 04/14/25 10:27) RASH,SWELLING sulfamethoxazole (From Bactrim) Allergy (Intermediate, Verified 04/14/25 10:27) RASH,SWELLING trimethoprim (From Bactrim) Allergy (Intermediate, Verified 04/14/25 10:27) RASH,SWELLING HPI Comments Details: Annabella is very pleasant 59 years old female who presents in my office with complains on pain in the left posterior hip. She was my patient 2 years ago she received diagnostic sacroiliac joint injection bilateral and she never showed up for follow-up. She reported that that injection relieved her pain for few months. She reported excellent mobility and good activities of daily living for few months after the diagnostic sacroiliac joint injection. She is now complaining on the pain as above. Physical exam see as below. Most likely her pain continues to be from left sacroiliac joint. I offered her to perform therapeutic left sacroiliac joint injection. Patient agreed to go for this procedure. [facility] Medical History CVA (cerebral vascular accident) Asthma Surgical History Hx of hysterectomy History of back surgery Hx of elbow surgery Hx of cystoscopy History of esophagogastroduodenoscopy (EGD) H/O colonoscopy Family History Mother Multiple myeloma Family/Other Breast cancer Social History (Updated 06/08/24 @ 11:12 by Rashel Marino) Household Members: Significant Other Patient Tobacco Use Status: Current everyday Tobacco user service: No Current occupational status: disabled Review of Systems Const All systems reviewed & are unremarkable except as noted in HPI and below ENT Reports Normal hearing present Neuro Reports Normal hearing present and Denies Abnormal speech present Physical Exam Const General: cooperative, healthy appearing and no acute distress Orientation/consciousness: patient oriented x3 HEENT Head: Yes normocephalic and Yes atraumatic Ears: hearing grossly normal bilaterally Eyes General: appearance normal, both eyes and all related structures Neck Neck: Yes normal visual inspection and Yes supple Resp Effort & Inspection: normal respiratory effort and no audible wheezes Cardio Jugular venous distension: no JVD Back/Spine/Pelvis Other: Troy test positive on left. Ga[place]len test is positive on the left, [place]'s test is positive on the left, pelvic compression and pelvic distraction tests are positive on the left. Able to stand and walk on tip toes and heels demonstrating good motor tone.5/5 quadriceps strength. 5/5 strength with dorsiflexion and flexion of bilateral feet. Thoracic/Lumbar Spine: Thoracic/lumbar spine scar(s) (4 inch medial, well healed incision without erythema) Sacroiliac joints: on the left tender to palpation Neuro General: patient oriented x3 Cranial nerves: Yes Normal hearing present Speech: No Abnormal speech present Gait exam (Neuro): Normal gait present Psych Appearance: grossly normal Speech and movement: Clear speech present Affect: normal affect Thought process: Normal thought process present Insight: Good insight present (Psych) Judgement: Good judgement present (Psych) Results Reviewed Results Reviewed: There is transitional lumbosacral anatomy. The last formed disc space is considered L5-S1. A hypoplastic disc is seen at S1-S2. There is grade 1 anterolisthesis of L5 on S1 measuring 4 mm, previously 2 mm. There is new grade 1 anterolisthesis of L4 on L5 measuring 2 mm. There is unchanged trace retrolisthesis of L3 on L4. There is mild multilevel disc height loss, similar to prior. No bone marrow edema is seen. The distal spinal cord appears normal. The conus medullaris terminates normally at the upper L2 level. No abnormal cauda equina nerve root enhancement is seen. The visualized paraspinal muscles and intra-abdominal and pelvic contents are within normal limits. SPINAL LEVELS: L1-L2: Mild disc bulging. No spinal canal or neural foraminal stenosis. No interval change. L2-L3: Mild disc bulging. No spinal canal or neural foraminal stenosis. No interval change. L3-L4: Disc bulging with mild facet arthropathy. Mild spinal canal stenosis, new from prior. Left subarticular zone is asymmetrically narrowed. No foraminal nerve root compression. L4-L5: Disc bulging asymmetric to the left with ligament flavum infolding and moderate to severe facet arthropathy resulting in progressive moderate spinal canal stenosis and bilateral subarticular stenosis. Mild to moderate narrowing of the left neural foramen with abutment of the exiting left L4 nerve root, progressed from prior. L5-S1: Posterior decompression with fusion changes noted posteriorly. Similar-appearing mild spinal canal stenosis with asymmetric narrowing of the right subarticular zone with mass effect on the traversing right S1 nerve root without interval change. Mild bilateral neural foraminal stenosis without foraminal nerve root compression. Assessment & Plan Assessment & Plan (1) Spondylosis of lumbar region without myelopathy or radiculopathy: Code(s): M47.816 - Spondylosis without myelopathy or radiculopathy, lumbar region Category: Medical (2) Sacroiliac joint pain: Code(s): M53.3 - Sacrococcygeal disorders, not elsewhere classified Category: Medical (3) Sacroiliitis: Code(s): M46.1 - Sacroiliitis, not elsewhere classified Category: Medical (4) Pain of both sacroiliac joints: Code(s): M53.3 - Sacrococcygeal disorders, not elsewhere classified Category: Medical (5) Cervicalgia: Code(s): M54.2 - Cervicalgia Category: Medical (6) Spondylosis, cervical: Code(s): M47.812 - Spondylosis without myelopathy or radiculopathy, cervical region Category: Medical Plan I will schedule this patient for left-sided sacroiliac joint injection therapeutic. I will see the patient after the procedure. She was informed to attend for the follow-up visit after the procedure so we can decide further management of her condition. She was asking me question if Zepbound she is taking for weight loss is contraindicated with steroids. I explained to her that to my knowledge it is not however I recommended her to ask her primary care physician whether or not this medication is compatible with steroids. Coding Level of Care Code Est Pt Level 3 (33016) Diagnoses Spondylosis of lumbar region without myelopathy or radiculopathy M47.816 Sacroiliac joint pain M53.3 Sacroiliitis M46.1 Pain of both sacroiliac joints M53.3 Cervicalgia M54.2 Spondylosis, cervical M47.812
--- OUTSIDE RECORDS SUMMARY | 2025-04-14 12:27 | XMS_ITS | Encounter Summary ---
Author Organization [employer] Address [address] [place] [address] Care Team Providers Care Oil Field Worker Name Role Phone Ayala Mckay MD Primary Care Provider + Reason for Visit * Reason Comments Med Change Request Encounter Details Date Type Department Care Team (Late st Contact Info) Description 07/03/2023 Refill [facility] [address] [place], [place] [phone] Ayala Mckay MD [address] [place], [place] [phone] Social History Tobacco Use Types Packs/Day Years Used Date Smoking Tobacco: Never Passive Smoke Exposure: Never Smokeless Tobacco: Never Comments Unknown Sex and Gender Information Value [...] on filedocumented in this encounter Care Teams Oil Field Worker Relationship Specialty Start Date End Date Ayala Mckay MD [address] [place], [place] [phone] PCP - General Family Medicine 08/08/16 Allison Almanza Cardiac Cath Lab ManagerDesulfurizer Operator 01/08/24 documented as of this encounter
--- OUTSIDE RECORDS SUMMARY | 2025-04-14 12:27 | XMS_ITS | Encounter Summary ---
Author Organization [employer] Address [address] [facility] 7 [place] [address] Care Team Providers Care Senior Shipping Clerk Name Role Phone Ayala Mckay MD Primary Care Provider + Reason for Visit * Reason Comments Med Change Request Encounter Details Date Type Department Care Team ([facility] Contact Info) Description 08/19/2024 Refill [facility] MED[facility]INE [address] [place] [address] Ayala Mckay MD [address] [place] [address] Social History Tobacco Use Types Packs/Day Years Used Date Smoking Tobacco: Every Day Cigarettes Passive Smoke Exposure: Never Smokeless Tobacco: Never Alcohol Use Standard Drinks/Week Comments Not Currently 0 (1 standard drink = 0.6 oz pur e alcohol) social Depression Answer Date Recorded Patient Health Questionnaire-9 Score 20 11/07/2023 Patient Health Questionnaire-9 Score 20 11/07/2023 Last PHQ-9: Questionnaire Data Not on file 0 11/07/2023 Housing Stability Answer Date Recorded What is your housing situation today? I have yamel chen 11/07/[address] you li ve. Do you have problems with any of the following? None of the above 11/07/2023 Food Insecurity Answer Date Recorded Within the past 12 months, y ou worried that your food would run out before you got money to buy more: Never True 11/07/2023 Within the past 12 months,th e food you bought just didn't last and you didn't have enough money to get more: Never True Transportation Answer Date Recorded In the past 12 months, has l ack of transportation kept you from medical appts, meetings, work or from getting things needed for daily living? No 11/07/2023 Utilities Answer Date Recorded In the past 12 months, has t he electric, gas, oil or water company threatened to shut off services in your home? No 11/07/2023 Depression Answer Date Recorded Patient Health Questionnaire-2 Score 6 11/07/2023 Comments No Sex and Gender Information Value Date Recorded Sex Assigned at Female 05/20/2022 10:14 AM EDT Legal Sex Female 10:14 AM EDT Gender Identity Female 05/20/2022 10:14 AM EDT Sexual Orientation Straight 05/20/2022 10 :14 AM EDT documented as of this encounter Plan of Treatment Not on file documented as of this encounter Visit Diagnoses Not on filedocumented in this encounter Additional Health Concerns Assessment Noted Time PHQ-9 Depression Total Score: 20 024 12:08 PM EDT documented as of this encounter Care Teams Senior Shipping Clerk Relationship Specialty Start Date End Date Ayala Mckay MD [address] [place] [address] PCP - General Family Medicine 08/08/16 Allison Almanza Power Plant TechnicianHead Of Sales 01/08/24 documented as of this encounter
--- OUTSIDE RECORDS SUMMARY | 2025-04-14 12:27 | XMS_ITS | Encounter Summary ---
Author Organization [employer] Address [address] [facility] 7 [place] [address] Care Team Providers Care Manager Strategic Sourcing Name Role Phone Ayala Mckay MD Primary Care Provider + Encounter Details Date Type Department Care Team ([facility] Contact Info) Description 02/23/2025 Results Follow-Up [facility] MEDICINE [address] [place] [address] Ayala Mckay MD [address] [place] [address] XR Hip 2 or 3 Views Left, XR Lumbar Spine Complete 4+ Views Social History Tobacco Use Types Packs/Day Years Used Date Smoking Tobacco: Every Day Cigarettes Passive Smoke Exposure: Never Smokeless Tobacco: Never Alcohol Use Standard Drinks/Week Comments Not Currently 0 (1 standard drink = 0.6 oz pur e alcohol) social Depression Answer Date Recorded Patient Health Questionnaire-9 Score 10 02/22/2025 Patient Health Questionnaire-9 Score 10 02/22/2025 Last PHQ-9: Questionnaire Data Not on file 0 02/22/2025 Housing Stability Answer Date Recorded What is your housing situation today? I have yamelkaleb chen 11/16/[address] you li ve. Do you have problems with any of the following? None of the above 11/16/2024 Food Insecurity Answer Date Recorded Within the past 12 months, y ou worried that your food would run out before you got money to buy more: Never True 11/16/2024 Within the past 12 months,th e food you bought just didn't last and you didn't have enough money to get more: Never True Transportation Answer Date Recorded In the past 12 months, has l ack of transportation kept you from medical appts, meetings, work or from getting things needed for daily living? No 11/16/2024 Utilities Answer Date Recorded In the past 12 months, has t he electric, gas, oil or water company threatened to shut off services in your home? No 11/16/2024 Depression Answer Date Recorded Patient Health Questionnaire-2 Score 4 02/22/2025 Internet Access Answer Date Recorded Internet Access Q1 Yes 11/16/2024 Internet Access Q2 Not on file 11/16/2024 Comments No Sex and Gender Information Value Date Recorded Sex Assigned at Female 05/20/2022 10:14 AM EDT Legal Sex Female 10:14 AM EDT Gender Identity Female 05/20/2022 10:14 AM EDT Sexual Orientation Straight 05/20/2022 10 :14 AM EDT documented as of this encounter Miscellaneous Notes * Result Encounter Note - Ayala Mckay MD - 02/23/2025 2:14 PM EDT X-rays on 02/22/2025 show expected DJD changes. Patient has history of DJD in the past and she is aware of diagnosis. Will continue with same POC and I will follow-up with her at next appointment. documented in this encounter Plan of Treatment Not on file documented as of this encounter Visit Diagnoses Not on filedocumented in this encounter Additional Health Concerns Assessment Noted Time PHQ-9 Depression Total Score: 10 025 9:29 AM EDT documented as of this encounter Care Teams Manager Strategic Sourcing Relationship Specialty Start Date End Date Ayala Mckay MD [address] [place] [address] PCP - General Family Medicine 08/08/16 Allison Almanza Cookie PadderChemical Production Engineer 01/08/24 documented as of this encounter
--- OUTSIDE RECORDS SUMMARY | 2025-04-14 12:27 | XMS_ITS | Encounter Summary ---
Author Organization [employer] Address [address] [place] [address] [address] [place] [address] Care Team Providers Care Right Of Way Supervisor Name Role Phone Ayala Mckay MD Primary Care Provider + Reason for Visit * Reason Comments Med Refill Encounter Details Date Type Department Care Team (Late st Contact Info) Description 09/26/2023 Refill [facility] [address] [place] [address] Wilfrid Lancaster MD [address] [place] [address] Vitamin D deficiency Social History Tobacco Use Types Packs/Day Years Used Date Smoking Tobacco: Some Days Cigarettes Passive Smoke Exposure: Never Smokeless Tobacco: Never Alcohol Use Standard Drinks/Week Comments Yes 0 (1 standard drink = 0.6 oz pur e alcohol) social Comments Unknown Sex and Gender Information Value Date Recorded Sex Assigned at Female 05/20/2022 10:14 AM EDT Legal Sex Female 10:14 AM EDT Gender Identity Female 05/20/2022 10:14 AM EDT Sexual Orientation Straight 05/20/2022 10 :14 AM EDT documented as of this encounter Plan of Treatment Not on file documented as of this encounter Visit Diagnoses Diagnosis Vitamin D deficiency documented in this encounter Care Teams Right Of Way Supervisor Relationship Specialty Start Date End Date Ayala Mckay MD [address] [place] [address] PCP - General Family Medicine 08/08/16 Allison Almanza Machine TesterCrm Administrator 01/08/24 documented as of this encounter
--- OUTSIDE RECORDS SUMMARY | 2025-04-14 12:27 | XMS_ITS | Encounter Summary ---
Author Organization [employer] Address [address] [facility] 7 [place] [address] Care Team Providers Care Rubber Flap Cutter Name Role Phone Ayala Mckay MD Primary Care Provider + Reason for Visit * Reason Onset Date Comments Med Refill 03/24/2025 Encounter Details Date Type Department Care Team (Late st Contact Info) Description 03/24/2025 Refill [facility] MEDICINE [address] [place] [address] Ayala Mckay MD [address] [place] [address] Social History Tobacco Use Types Packs/Day Years [...] housing situation today? I have yamel chen 11/16/[address] you [...] documented as of this encounter Care Teams Rubber Flap Cutter Relationship Specialty Start Date End Date Ayala Mckay MD [address] [place] [address] PCP - General Family Medicine 08/08/16 Allison Almanza Interface AnalystExperimental Physicist 01/08/24 documented as of this encounter
--- OUTSIDE RECORDS SUMMARY | 2025-04-14 12:27 | XMS_ITS | Encounter Summary ---
Author Organization [employer] Address [address] [place] [address] 7 [place] [address] Care Team Providers Care Silica Mixer Operator Name Role Phone Ayala Mckay MD Primary Care Provider + Encounter Details Date Type Department Care Team (Late st Contact Info) Description 10/31/2022 Orders Only [facility] [address] [place] [address] Felisa Zapata LPN Social History Tobacco Use Types Packs/Day [...] on filedocumented in this encounter Care Teams Silica Mixer Operator Relationship Specialty Start Date End Date Ayala Mckay MD [address] [place] [phone] PCP - General Family Medicine 08/08/16 Allison Almanza Referral ClerkTurf Manager 01/08/24 documented as of this encounter
--- OUTSIDE RECORDS SUMMARY | 2025-04-14 12:27 | XMS_ITS | Encounter Summary ---
Author Organization [employer] Address [address] [place] [address] Care Team Providers Care Knitting Machine Operator Automatic Name Role Phone Ayala Mckay MD Primary Care Provider + Reason for Visit * Reason Comments Med Refill Encounter Details Date Type Department Care Team (Late st Contact Info) Description 04/03/2023 Refill [facility] [address] [place], [place] [phone] Ayala Mckay MD [address] [place], [place] [phone] Moderate persistent asthma without complication Social History [...] complication documented in this encounter Care Teams Knitting Machine Operator Automatic Relationship Specialty Start Date End Date Ayala Mckay MD [address] [place], [place] [phone] PCP - General Family Medicine 08/08/16 Allison Almanza Framing SpecialistDirector Of Intelligence 01/08/24 documented as of this encounter
--- OUTSIDE RECORDS SUMMARY | 2025-04-14 12:27 | XMS_ITS | Encounter Summary ---
Author Organization [employer] Address [address] [facility] 7 [place] [address] Care Team Providers Care Sand Mill Operator Name Role Phone Ayala Mckay MD Primary Care Provider + Reason for Visit * Reason Onset Date Comments Med Refill 12/02/2024 Encounter Details Date Type Department Care Team (Late st Contact Info) Description 12/02/2024 Refill [facility] MEDICINE [address] [place] [address] Ayala Mckay MD [address] [place] [address] Social History Tobacco Use Types Packs/Day Years [...] Recorded Patient Health Questionnaire-2 Score 6 11/07/2023 Internet Access Answer Date Recorded Internet Access [...] documented as of this encounter Care Teams Sand Mill Operator Relationship Specialty Start Date End Date Ayala Mckay MD [address] [place] [address] PCP - General Family Medicine 08/08/16 Allison Almanza Finish RemoverGrain Farmworker 01/08/24 documented as of this encounter
--- OUTSIDE RECORDS SUMMARY | 2025-04-14 12:27 | XMS_ITS | Encounter Summary ---
Author Organization [employer] Address [address] [place] [address] [address] [place] [address] Care Team Providers Care High School Physical Education Teacher Name Role Phone Ayala Mckay MD Primary Care Provider + Encounter Details Date Type Department Care Team (Late st Contact Info) Description 04/09/2023 Orders Only [facility] [address] [place] [address] Felisa Zapata LPN Social History Tobacco Use [...] on filedocumented in this encounter Care Teams High School Physical Education Teacher Relationship Specialty Start Date End Date Ayala Mckay MD [address] [place] [address] PCP - General Family Medicine 08/08/16 Allison Almanza Science TutorApplications Developer 01/08/24 documented as of this encounter
--- OUTSIDE RECORDS SUMMARY | 2025-04-14 12:27 | XMS_ITS | Encounter Summary ---
Author Organization [employer] Address [address] [facility] 7 [place] [address] Care Team Providers Care Aviation Program Manager Name Role Phone Ayala Mckay MD Primary Care Provider + Reason for Visit * Reason Onset Date Comments Med Refill 04/29/2024 Encounter Details Date Type Department Care Team (Late st Contact Info) Description 04/29/2024 Refill [facility] [address] [place] [address] Ayala Mckay MD [address] [place] [address] Social History Tobacco Use Types Packs/Day Years Used Date Smoking Tobacco: Former Cigarettes Passive Smoke Exposure: Never Smokeless Tobacco: [...] your housing situation today? I have yamel gustavo 11/07/[address] you li [...] documented as of this encounter Care Teams Aviation Program Manager Relationship Specialty Start Date End Date Ayala Mckay MD [address] [place] [address] PCP - General Family Medicine 08/08/16 Allison Almanza School Standards CoachDriver Sales 01/08/24 documented as of this encounter
--- OUTSIDE RECORDS SUMMARY | 2025-04-14 12:27 | XMS_ITS | Encounter Summary ---
Author Organization [employer] Address [address] [facility] 7 [place] [address] Care Team Providers Care Account Group Supervisor Name Role Phone Ayala Mckay MD Primary Care Provider + Reason for Visit * Reason Comments Med Refill Encounter Details Date Type Department Care Team ([facility] st Contact Info) Description 09/27/2024 Refill [facility] MEDICINE [address] [place] [address] Ayala Mckay MD [address] [place] [address] Mild intermittent asthma without complication Social History Tobacco Use [...] as of this encounter Visit Diagnoses Diagnosis Mild intermittent asthma without complication documented in this encounter Additional Health Concerns Assessment Noted Time PHQ-9 Depression Total Score: 20 024 12:08 PM EDT documented as of this encounter Care Teams Account Group Supervisor Relationship Specialty Start Date End Date Ayala Mckay MD [address] [place] [address] PCP - General Family Medicine 08/08/16 Allison Almanza Panel Lay Up WorkerBow Stapler 01/08/24 documented as of this encounter
--- OUTSIDE RECORDS SUMMARY | 2025-04-14 12:27 | XMS_ITS | Encounter Summary ---
Author Organization [employer] Address [address] [place] [address] Care Team Providers Care Blade Grinder Name Role Phone Ayala Mckay MD Primary Care Provider + Reason for Visit * Reason Comments Med Change Request Encounter Details Date Type Department Care Team (Late st Contact Info) Description 10/02/2022 Refill [facility] [address] [place], [place] [phone] Ayala Mckay MD [address] [place] [phone] Anxiety Social History Tobacco Use Types Packs/Day Years [...] as of this encounter Visit Diagnoses Diagnosis Anxiety Anxiety state, unspecified documented in this encounter Care Teams Blade Grinder Relationship Specialty Start Date End Date Ayala Mckay MD [address] [place], [place] [phone] PCP - General Family Medicine 08/08/16 Allison Almanza Hydrodynamics TeacherLongshore Equipment Operator 01/08/24 documented as of this encounter
--- OUTSIDE RECORDS SUMMARY | 2025-04-14 12:27 | XMS_ITS | Encounter Summary ---
Author Organization [employer] Address [address] [place] [address] Care Team Providers Care Prosthetic Lab Technician Name Role Phone Ayala Mckay MD Primary Care Provider + Reason for Visit * Reason Comments Med Refill Encounter Details Date Type Department Care Team (Late st Contact Info) Description 07/31/2023 Refill [facility] [address] [place], [place] [phone] Ayala Mckay MD [address] [place], [place] [phone] Vitamin D deficiency Social History Tobacco Use [...] deficiency documented in this encounter Care Teams Prosthetic Lab Technician Relationship Specialty Start Date End Date Ayala Mckay MD [address] [place], [place] [phone] PCP - General Family Medicine 08/08/16 Allison Almanza Senior Clinical Study ManagerTime Broker 01/08/24 documented as of this encounter
--- OUTSIDE RECORDS SUMMARY | 2025-04-14 12:27 | XMS_ITS | Encounter Summary ---
Author Organization [employer] Address [address] [place] [address] Care Team Providers Care Mineral Surveying Technician Name Role Phone Ayala Mckay MD Primary Care Provider + Encounter Details Date Type Department Care Team (Late st Contact Info) Description 08/14/2023 Abstract [facility] MEDICINE [address] [place], [place] [phone] Ayala Mckay MD [address] [place] [address] Social History Tobacco Use Types Packs/Day Years [...] on filedocumented in this encounter Care Teams Mineral Surveying Technician Relationship Specialty Start Date End Date Ayala Mckay MD [address] [place], [place] [phone] PCP - General Family Medicine 08/08/16 Allison Almanza Resource EconomistEnvelope Folding Machine Operator 01/08/24 documented as of this encounter
--- OUTSIDE RECORDS SUMMARY | 2025-04-14 12:27 | XMS_ITS | Encounter Summary ---
Author Organization [employer] Address [address] [facility] 7t [place] [address] Care Team Providers Care Railroad Brakeman Name Role Phone Ayala Mckay MD Primary Care Provider + Reason for Visit * Reason Comments Med Refill Encounter Details Date Type Department Care Team ([facility] st Contact Info) Description 02/12/[address] [facility] [address] [place] [address] Wilfrid Lancaster MD 230 [place] [address] Social History Tobacco Use Types Packs/Day Years [...] housing situation today? I have yamelkaleb chen 11/07/[address] you [...] documented as of this encounter Care Teams Railroad Brakeman Relationship Specialty Start Date End Date Ayala Mckay MD [address] [place] [phone] PCP - General Family Medicine 08/08/16 Allison Almanza Supervisor DopingRing Rolling Machine Operator 01/08/24 documented as of this encounter
--- OUTSIDE RECORDS SUMMARY | 2025-04-14 12:27 | XMS_ITS | Encounter Summary ---
Author Organization [employer] Address [address] [place] [address] 7 [place] [address] Care Team Providers Care Immunochemist Name Role Phone Ayala Mckay MD Primary Care Provider + Reason for Visit * Reason Comments Med Refill Encounter Details Date Type Department Care Team (Late st Contact Info) Description 09/26/2023 Refill [facility] MED [facility] PEDS [address] [place], [place] [phone] Ayala Mckay MD [address] [place] [address] [phone] Arthritis; Vitamin D deficiency Social History Tobacco Use [...] as of this encounter Visit Diagnoses Diagnosis Arthritis Unspecified arthropathy, site unspecified Vitamin D deficiency documented in this encounter Care Teams Immunochemist Relationship Specialty Start Date End Date Ayala Mckay MD [address] [place] [address] [phone] PCP - General Family Medicine 1/19/17 Allison Almanza Natural Sciences Department ChairRn Lactation 01/08/24 documented as of this encounter
--- OUTSIDE RECORDS SUMMARY | 2025-04-14 12:27 | XMS_ITS | Encounter Summary ---
Author Organization [employer] Address [address] [place] [address] 7 [place] [address] Care Team Providers Care Fuel Dock Attendant Name Role Phone Ayala Mckay MD Primary Care Provider + Encounter Details Date Type Department Care Team (Late st Contact Info) Description 12/02/2022 Orders Only [facility] MED & PEDS [address] [place] [address] Felisa Zapata LPN Social History Tobacco Use [...] on filedocumented in this encounter Care Teams Fuel Dock Attendant Relationship Specialty Start Date End Date Ayala Mckay MD [address] [place] [phone] PCP - General Family Medicine 08/08/16 Allison Almanza Buckle Wire InserterHaz Tech 01/08/24 documented as of this encounter
--- OUTSIDE RECORDS SUMMARY | 2025-04-14 12:27 | XMS_ITS | Encounter Summary ---
Author Organization [employer] Address [address] [facility] 7t [place] [address] Care Team Providers Care Beauty Operator Apprentice Name Role Phone Ayala Mckay MD Primary Care Provider + Encounter Details Date Type Department Care Team ([facility] st Contact Info) Description 12/19/2023 Orders Only [facility] MEDICINE 230 [place], [place] [phone] Provider, MD Celso Social History Tobacco Use Types Packs/Day Years [...] Patient Health Questionnaire-2 Score 6 11/07/2023 Comments Unknown Sex and Gender Information Value Date Recorded Sex Assigned at Female 05/20/2022 10:14 AM EDT Legal Sex Female 10:14 AM EDT Gender Identity Female 05/20/2022 10:14 AM EDT Sexual Orientation Straight 05/20/2022 10 :14 AM EDT documented as of this encounter Plan of Treatment Not on file documented as of this encounter Procedures Procedure Name Priority Date/Time Associated Diagnosis Comments HM COLONOSCOPY Routine 02/15/2019 5:53 AM EDT documented in this encounter Results * Hm Colonoscopy (02/15/2019 5:53 AM EDT) Historical Provider HEALTH MAINTENANCE Final Result documented in this encounter Visit Diagnoses Not on filedocumented in this encounter Additional Health Concerns Assessment Noted Time PHQ-9 Depression Total Score: 20 024 12:08 PM EDT documented as of this encounter Care Teams Beauty Operator Apprentice Relationship Specialty Start Date End Date Ayala Mckay MD [address] [place] [id number] PCP - General Family Medicine 08/08/16 Allison Almanza Engraver Ornamental DesignRoad Advisor 01/08/24 documented as of this encounter
--- OUTSIDE RECORDS SUMMARY | 2025-04-14 12:27 | XMS_ITS | Patient Health Record ---
Author Organization [facility] Address [address] [place] [address] Care Team Providers Care Meeting Manager Name Role Phone Nely AMBROSE, Ayala Primary Care Provider Unavail able Lew Diehl Unavailable [phone] Allergies Allergen (clinical drug ingredient) Drug/Non Drug [...] Problem Status W/U Status Risk Notes Problem [id number] Encounter for screening for malignant neoplasm of colon (Z12.11) Active confirmed Problem 258686969 History of adenomatous polyp of colon (Z86.010) Active confirmed Problem 454088605 Family history o f colon cancer (Z80.0) Active confirmed Problem [id number] Constipation, unspecified constipation type (K59.00) Active confirmed Plan Of Treatment Future Test Test Name Order Date COLONOSCOPY 03/16/2013 COLONOSCOPY 10/29/2018 Insurance Providers Payer Name Payer Address Payer Phone Subscriber Number Group Number Insured Name Patient Relationship to Insured Coverage Start Date Coverage End Date MEDICAID OF [employer] [facility] [address] [place] [phone] [id number] DOMINGO SANCHEZ Self - patient is the insured Medical (General) History Medical History History ICD Code [id number] hiatal h ernia-EGJ dilated with an 18mm balloon-has GERD and occ. dysphagia--felt to be c/w esophgeal spasm. FIBROMYALGIA B12 DEFICIENCY ASTHMA MIGRAINE DIZZINESS ANXIETY AND DEPRESSION ANTIPHOSPHOLIPID SYNDROME wi th a previous DVT-previously on Coumadin-sees Dr. Aden [place],renal disease Neg. colonoscopy in 11/2007 and in 11/1999 Constipation Mini-stroke in 2000 Colonoscopy in 03/2013-1 small tubular ad enoma Surgical History Surgery Date(Month/Year) cholecystectomy hysterectomy left elbow surgery back surgery
--- OUTSIDE RECORDS SUMMARY | 2025-04-14 12:27 | XMS_ITS | Encounter Summary ---
Author Organization [employer] Address [address] [place] [address] Care Team Providers Care Underground Mine Machinery Mechanic Name Role Phone Ayala Mckay MD Primary Care Provider + Reason for Visit * Reason Comments Med Change Request Encounter Details Date Type Department Care Team (Late st Contact Info) Description 09/01/2023 Refill [facility] MED & PEDS [address] [place], [place] [phone] Ayala Mckay MD [address] [place], [place] [phone] Social History Tobacco Use Types Packs/Day Years [...] on filedocumented in this encounter Care Teams Underground Mine Machinery Mechanic Relationship Specialty Start Date End Date Ayala Mckay MD 230 [place], [place] [phone] PCP - General Family Medicine 08/08/16 Allison Almanza Dot Compliance ManagerPatient Observation Assistant 01/08/24 documented as of this encounter
--- OUTSIDE RECORDS SUMMARY | 2025-04-14 12:28 | XMS_ITS | Encounter Summary ---
Author Organization [employer] Address [address] [facility] 7 [place] [address] Care Team Providers Care Recreation Worker Name Role Phone Ayala Mckay MD Primary Care Provider + Reason for Visit * Reason Onset Date Comments Med Refill 12/31/2024 Encounter Details Date Type Department Care Team (Late st Contact Info) Description 12/31/2024 Refill [facility] MEDICINE 230 [place] [address] Ayala Mckay MD [address] [place] [address] Social History Tobacco Use Types Packs/Day Years [...] documented as of this encounter Care Teams Recreation Worker Relationship Specialty Start Date End Date Ayala Mckay MD [address] [place] [address] PCP - General Family Medicine 08/08/16 Allison Almanza Supervisor Briar ShopFood Preparer 01/08/24 documented as of this encounter
--- OUTSIDE RECORDS SUMMARY | 2025-04-14 12:28 | XMS_ITS | Encounter Summary ---
Author Organization [employer] Address [address] [facility] 7 [place] [address] Care Team Providers Care Public Opinion Survey Taker Name Role Phone Ayala Mckay MD Primary Care Provider + Reason for Visit * Reason Onset Date Comments Med Refill 01/14/2025 Encounter Details Date Type Department Care Team (Late st Contact Info) Description 01/14/2025 Refill [facility] MEDICINE [address] [place] [address] Ayala Mckay MD 230 [place] [address] Social History Tobacco Use Types Packs/Day Years [...] documented as of this encounter Care Teams Public Opinion Survey Taker Relationship Specialty Start Date End Date Ayala Mckay MD [address] [place] [address] PCP - General Family Medicine 08/08/16 Allison Almanza Manager ProcurementBranch Service Leader 01/08/24 documented as of this encounter
--- OUTSIDE RECORDS SUMMARY | 2025-04-14 12:28 | XMS_ITS | Encounter Summary ---
Author Organization [employer] Address [address] [place] [address], [place] [address] Care Team Providers Care Pit Inspector Name Role Phone Ayala Mckay MD Primary Care Provider + Encounter Details Date Type Department Care Team ([facility] st Contact Info) Description 08/13/2022 Orders Only [facility] MEDICINE 230 [place], [place] [phone] Qian Bansal LPN Social History Tobacco Use [...] on filedocumented in this encounter Care Teams Pit Inspector Relationship Specialty Start Date End Date Ayala Mckay MD 230 [place] [address] PCP - General Family Medicine 08/08/16 Allison Almanza Mechanical Project EngineerTerrazzo Polisher 01/08/24 documented as of this encounter
--- OUTSIDE RECORDS SUMMARY | 2025-04-14 12:28 | XMS_ITS | Encounter Summary ---
Author Organization [employer] Address [address] [facility] 7 [place] [address] Care Team Providers Care Unit Manager Rn Name Role Phone Ayala Mckay MD Primary Care Provider + Reason for Visit * Reason Onset Date Comments Med Refill 01/04/2025 Encounter Details Date Type Department Care Team (Late st Contact Info) Description 01/04/2025 Refill [facility] MEDICINE [address] [place] [address] Ayala Mckay MD 230 [place] [address] Social History Tobacco Use Types Packs/Day Years [...] documented as of this encounter Care Teams Unit Manager Rn Relationship Specialty Start Date End Date Ayala Mckay MD [address] [place] [address] PCP - General Family Medicine 08/08/16 Allison Almanza Strategic Marketing LeaderArtist Manager 01/08/24 documented as of this encounter
--- OUTSIDE RECORDS SUMMARY | 2025-04-14 12:28 | XMS_ITS | Encounter Summary ---
Author Organization [employer] Address [address] [facility] 7 [place] [address] Care Team Providers Care Armhole Baster Jumpbasting Name Role Phone Ayala Mckay MD Primary Care Provider + Reason for Visit * Reason Comments Med Change Request Encounter Details Date Type Department Care Team ([facility] Contact Info) Description 12/10/2024 Refill [facility] MEDICINE 230 [place] [address] Ayala Mckay MD 230 [place] [address] Social History Tobacco Use Types Packs/Day Years [...] your housing situation today? I have yamel hcen 11/16/[address] you li [...] documented as of this encounter Care Teams Armhole Baster Jumpbasting Relationship Specialty Start Date End Date Ayala Mckay MD [address] [place] [address] PCP - General Family Medicine 08/08/16 Allison Almanza Production Line ManagerWeb Designer 01/08/24 documented as of this encounter
--- OUTSIDE RECORDS SUMMARY | 2025-04-14 12:28 | XMS_ITS | Clinical Summary ---
Author Organization [employer] Address [address] [place] [address] 7 [place] [address] Care Team Providers Care Rad Technologist Name Role Phone Lj Mckay MD Primary Care Provider + Allergies Active Allergy Reactions Criticality Noted Date Comments Albuterol Other 09/06/2010 Other reaction(s): TACHYCARDIA Penicillins Unknown 09/06/2010 Other reaction(s): unspecified Sulfamethoxazole Unknown 09/06/2010 Sulfamethoxazole-Trimethoprim Unknown 2022 Trimethoprim Unknown 09/06/2010 Medications oxybutynin XL (Ditropan-XL) 10 MG 24 hr tablet TOME ONDINA TABLETA TODOS LOS D 12/30/19 23 Active Senna-Time 8.6 MG tablet TOME DOS TABLETAS POR V A ORAL AL ACOSTARSE 01/13/20 23 Active zolpidem (Ambien) 10 MG tablet TOME ONDINA TABLETA TODOS LOS D AL ACOSTARSE CUANDO SEA NECESARIO 05/08/20 23 Active docusate sodium (Colace) 100 MG capsule TOME 2 C PSULAS POR V A ORAL AL ACOSTARSE 10/24/19 23 Active diphenhydrAMINE (Banophen) 25 MG capsuleIndicatio ns:Allergy, subsequent encounter TAKE 1-2 CAPSULES BY MOUTH AT BEDTIME FOR INSOMNIA 60 capsule 3 06/01/20 24 Active fluticasone furoate (Arnuity Ellipta) 200 MCG/ACT inhaler INHALE 1 PUFF BY MOUTH ONCE A DAY. RINSE MOUTH AFTER USE. 30 each 11 06/25/20 24 Active linaCLOtide (Linzess) 290 MCG capsule TAKE 1 CAPSULE BY MOUTH ON AN EMPTY STOMACH AT LEAST 30 MINUTES BEFORE FIRST MEAL OF THE DAY 90 capsule 3 08/20/19 25 Active clonazePAM (KlonoPIN) 1 MG tablet TOME 1 TABLETA POR V A ORAL MAT VECES AL D A CUANDO SEA NECESARIO Active montelukast (Singulair) 10 MG tabletIndication s:Vitamin D deficiency TAKE 1 TABLET BY MOUTH AT BEDTIME 90 tablet 1 11/23/19 25 Active hydroCHLOROthiaz sharon 12.5 MG tablet Take 1 tablet (12.5 mg) by mouth Once per day. Rx sent by cardiology, no need for addtl refill 90 tablet 1 11/23/19 25 026 Active Multiple Vitamin (Daily-Shiv Multivitamin) tabletIndication s:Mild intermittent asthma without complication TAKE 1 TABLET BY MY MOUTH EVERYDAY WITH FOOD 90 tablet 3 11/23/19 25 Active tiZANidine (Zanaflex) 2 MG tablet TAKE 1 -2 TABLETS BY MOUTH AT BEDTIME IF NEEDED FOR PAIN. MAY CAUSE DROWSINESS. 180 tablet 1 12/17/19 25 Active ergocalciferol (Vitamin D2) 1.25 MG (89892 UT) capsuleIndicatio ns:Vitamin D deficiency TAKE 1 CAPSULE BY MOUTH EVERY WEEK 12 capsule 01/25/20 25 Active naproxen (Naprosyn) 500 MG tabletIndication s:Arthritis TOME 1 TABLETA POR VIA ORAL DOS VECES AL MAGALYS CON ALIMENTO 60 tablet 3 02/01/20 25 Active fluticasone (Flonase) 50 MCG/ACT nasal spray USE TWO SPRAYS INTO EACH NOSTRIL EVERY MORNING. SHAKE GENTLY AND PRIME BEOFRE 1ST USE AND CLEAN TIP AND REPLACE CAP. 48 mL 02/19/20 25 Active Tirzepatide-Weig ht Management (Zepbound) 7.5 MG/0.5ML solution auto-injector Inject 0.5 mL (7.5 mg) under the skin 1 (one) time per week. 2 mL 2 02/23/20 25 Active albuterol (2.5 MG/3ML) 0.083% nebulizer solutionIndicati ons:Moderate persistent asthma without complication USE 1 VIAL VIA NEBULIZER THREE TIMES A DAY IF NEEDED FOR SHORTNESS OF BREATH/ASTHMA 150 mL 3 02/23/20 25 Active albuterol (Ventolin HFA) 108 (90 Base) MCG/ACT inhalerIndicatio ns:Mild intermittent asthma without complication Inhale 2 puffs every 4 (four) hours if needed for wheezing or shortness of breath. 18 g 3 02/23/20 25 Active phenazopyridine (Pyridium) 200 MG tabletIndication s:Interstitial cystitis (chronic) with hematuria TAKE 1 TABLET BY MOUTH 2-3 TIMES EVERY DAY AFTER MEALS NEEDED 60 tablet 3 03/01/20 25 Active GaviLAX 17 GM/SCOOP powder TAKE 17 G BY MOUTH IF NEEDED EACH DAY (CONSTIPATION ). 510 g 2 03/16/20 25 Active Diclofenac Sodium 1 % gel APPLY 1 INCH TOPICALLY IF NEEDED IN THE MORNING AND AT BEDTIME FOR PAIN 100 g 3 03/17/20 25 Active aspirin (Aspirin Low Dose) 81 MG EC tablet TAKE 1 TABLET BY MOUTH EVERY DAY 90 tablet 3 04/08/20 25 Active aspirin (Aspirin Low Dose) 81 MG EC tablet TOME ONDINA TABLETA TODOS LOS CHIANG 90 tablet 3 04/20/20 24 025 Discontinued Diclofenac Sodium 1 % gel APPLY 1 INCH TOPICALLY IF NEEDED IN THE MORNING AND AT BEDTIME FOR PAIN 100 g 3 11/23/19 25 025 Discontinued polyethylene glycol, PEG, 3350 (GaviLAX) 17 GM/SCOOP powder Take 17 g by mouth if needed each day (constipation ). 510 g 2 11/23/19 25 025 Discontinued Active Problems Problem Noted Date Diagnosed Date Iliopsoas bursitis of left hip 02/22/2025 Assessment & Plan (02/22/2025 10:25 AM EDT): Not improving with PT and meds Order x-rays and refer to pain clinic We discussed importance of exercise on the setting of weight reduction, strengthening paravertebral muscles. Trochanteric bursitis of left hip 11/22/2024 Assessment & Plan (12/01/2024 8:10 PM EDT): Recommended stretching exercises, take naproxen or Tylenol as needed Recommended to come to acupuncture, she will call back as needed if she wants to be referred to PT again Overweight 03/24/2024 Assessment & Plan (02/22/2025 10:24 AM EDT): BMI is at goal. Will continue Zepbound 7.5 mg I stressed importance to follow-up closely with dietitian. We discussed importance of adding protein portions to all meals and exercise. Patient is tolerating Zepbound well, will follow-up in 3 months We discussed about decrease soda and sugary beverage consumption, increase protein intake with meals (at least 1 portion of protein with each meal) to assist with satiety, increase dietary fiber Recommended at least 150 min/week of moderate intensity exercise. Refer to dietitian again Assessment & Plan (12/01/2024 8:08 PM EDT): BMI is slowly improving with life style modifications + Zepbound 2.5 mg/week, I will increase to 5 mg since she is tolerating well. I discussed with patient regarding side effects including diarrhea, constipation, abdominal bloating, nausea and vomiting. She should call back as needed with sxs intolerance/side effects. I recommended to decrease soda and sugary beverage consumption, increase protein intake with meals (at least 1 portion of protein with each meal) to assist with satiety, increase dietary fiber Recommended at least 150 min/week of moderate intensity exercise. Follow-up in 2 to 3 months Assessment & Plan (12/01/2024 8:07 PM EDT): >>ASSESSMENT AND PLAN FOR OVERWEIGHT (BMI 25.0-29.9) WRITTEN ON 03/24/2024 12:05 PM BY SHARONA [place] - Discussed re weight reduction options including exercise, life style modifications, diet and referral to child protective services specialist. - Recommended to decrease soda and sugary beverage consumption, increase protein intake with meals (at least 1 portion of protein with each meal) to assist with satiety, increase dietary fiber - Recommended at least 150 min/week of moderate intensity exercise. - Did not tolerate Wellbutrin, she wants to try Wegovy. She is aware that the medication may not be covered under her insurance - start 0.25 every week per week and trade up monthly - f/u in 3 months - if medication is not covered by insurance I will prescribe Metformin Assessment & Plan (12/01/2024 8:07 PM EDT): >>ASSESSMENT AND PLAN FOR OVERWEIGHT (BMI 25.0-29.9) WRITTEN ON 06/25/2024 3:05 PM BY LJ MCKAY MD BMI is slowly improving with life style modifications + Wegovy, will increase to 1mg/w and fu in Recommended to decrease soda and sugary beverage consumption, increase protein intake with meals (at least 1 portion of protein with each meal) to assist with satiety, increase dietary fiber Recommended at least 150 min/week of moderate intensity exercise. Dietary counseling 02/04/2024 Exercise counseling 02/04/2024 Hand pain 09/18/2023 Stress incontinence of urine 09/18/2023 Stenosis of intervertebral foramina 09/18/2023 Assessment & Plan (02/22/2025 10:25 AM EDT): With lumbar and thoracic spine, partially improved with PT. Referred to pain clinic, continue Tylenol, Flexeril and meloxicam Assessment & Plan (02/04/2024 1:55 PM EDT): Had MRI on 2020 Refer to PT, advised to come to accupuncture Take Tylenol and flexeril prn. Assessment & Plan (09/19/2023 11:03 AM EST): Most likely herniated lumbar disc as well Fu with pain clinic and PT, referred by Dr.Bass aylin saenz Incontinence of feces 09/18/2023 Cervical disc disorder 09/18/2023 Chronic neck pain 06/06/2023 06/06/2023 Generalized anxiety disorder 06/06/2023 Osteoarthritis 06/06/2023 06/06/2023 Moderate persistent asthma 06/06/2023 IFG (impaired fasting glucose) 10/28/2018 1 08/06/2022 Assessment & Plan (02/22/2025 10:24 AM EDT): I congratulated her with weight reduction, however we discussed importance of having a small infection meals and avoid extreme sugar intake. We discussed about protein intake with each meal, regular exercise and follow-up with dietitian. Follow-up in 6-month Assessment & Plan (03/24/2024 11:53 AM EDT): I have discussed with patient regarding increasing physicial activity and decrease calorie intake I'll check FBS with next set of labs. To check RBS at next visit. FU with me next visit Assessment & Plan (02/04/2024 1:53 PM EDT): RBS/A1c are at goal. She's gained weight and is more sedentary. I have discussed with patient regarding increasing physicial activity and decrease calorie intake I'll check FBS with next set of labs. To check RBS at next visit. Paresthesia 10/28/2018 Sleep disorder 09/17/2018 Disturbance in sleep behavior 07/02/2018 Knee pain 07/02/2018 Snoring 07/02/2018 Subacute vaginitis 04/01/2018 Chronic interstitial cystitis 11/05/2017 Irritable bowel syndrome with constipation 11/0506/06/2023 Assessment & Plan (09/19/2023 11:03 AM EST): Continue using linzess daily, miralax Recommended increase water intake Increase prune juice, raisins intake when using certain medications including tizanidine or gabapentin Cyst of ovary 11/05/2017 Recurrent urinary tract infection 07/04/2017 Primary hypertension 06/19/2017 Assessment & Plan (12/01/2024 8:04 PM EDT): Better controlled. Compliant w/meds Continue low dose hydrochlorothiazide and will fu more closely as she's losing some weight Counseled re low salt diet/increase moderate physical activity. Check home BP BIW and prn CP/ZULUAGA/SWANN Follow-up in 2-3 months Assessment & Plan (06/25/2024 3:02 PM EST): Better controlled. Compliant w/meds Continue low dose hydrochlorothiazide and will fu as she's losing some weight Counseled re low salt diet/increase moderate physical activity. Check home BP BIW and prn CP/ZULUAGA/SWANN Assessment & Plan (03/24/2024 12:02 PM EDT): - borderline/stage 1, did not tolerate Losartan - contine hydrochlorothiazide 12.5 mg and continue to check BP at home - f/u with me in 3 months - Counseled re low salt diet/increase moderate physical activity. - Check home BP BIW and prn CP/ZULUAGA/SWANN - Non smoking patient. Assessment & Plan (02/04/2024 1:51 PM EDT): Uncontrolled, I will lower hydrochlorothiazide due to potential side effects Start losartan 25mg + hydrochlorothiazide 12.5 and get BMP in 2-3w. Counseled re low salt diet/increase moderate physical activity. Check home BP BIW and prn CP/ZULUAGA/SWANN Non smoking patient. Assessment & Plan (12/12/2023 12:30 PM EDT): Borderline controlled today, no medication changes today as she recently increased HCTZ dose. Continue HCTZ same dose Counseled re low salt diet/increase moderate physical activity. Check home BP BIW and prn CP/ZULUAGA/SWANN Non smoking patient. Fu in 6-8 wks Assessment & Plan (12/12/2023 12:11 PM EDT): >>ASSESSMENT AND PLAN FOR ELEVATED BLOOD-PRESSURE READING WITHOUT DIAGNOSIS OF HYPERTENSION WRITTEN ON 09/19/2023 11:04 AM BY GUILLAUME WINTER R/o HTN Pt will check BP at home and fu within 4-6 wks Counseled re low salt diet/increase moderate physical activity. Check home BP BIW and prn CP/ZULUAGA/SWANN Non smoking patient. Assessment & Plan (11/07/2023 12:57 PM EDT): Uncontrolled. Advised pt to start taking HCTZ Controlled. Compliant w/meds Counseled re low salt diet/increase moderate physical activity. Check home BP BIW and prn CP/ZULUAGA/SWANN Non smoking patient. Fu w me in 6 wks w/ labs Acute frontal sinusitis 04/08/2017 Spinal stenosis in cervical region 02/25/2017 06/06/2023 Arthritis 08/21/2016 Thrombophilia 12/18/2012 06/06/2023 Dermatitis of nipple 12/18/2012 Shoulder pain 12/18/2012 Fibromyalgia 09/24/2012 06/06/2023 Vitamin D deficiency 06/22/2012 06/06/2023 Assessment & Plan (12/01/2024 8:06 PM EDT): Currently on vitamin D supplementation x 3 months. Check vitamin D levels prior to next appointment Advise regarding outdoor exercise for least 50 minutes/day Assessment & Plan (02/04/2024 1:52 PM EDT): Check Vit D levels prior to next appt. She had supplementation last year Assessment & Plan (09/19/2023 11:04 AM EST): Vit d is at goal. Continue vit d x 3 m only mainly due to multiple arthralgias Constipation 06/22/2012 Antiphospholipid syndrome 05/19/20122022 Overview (06/25/2024): Previously on Coumadin, now on ASA She has had a previous lacunar infarct on November 06, 2001. Assessment & Plan (12/01/2024 8:05 PM EDT): Continue ASA for now, last years labs were negative and she has not had recent thrombosis. Follow-up with hematology once per year Assessment & Plan (06/25/2024 3:06 PM EST): Recent labs are NEG, no evidence of recent thromboses Continue ASA for now, will fu recommendations from hematology at next RV Assessment & Plan (03/24/2024 11:56 AM EDT): - ANAs are negative, no evidence of thrombotic events so far - continue on ASA, off other anticoagulations - will refer to hematology if needed Assessment & Plan (02/04/2024 1:53 PM EDT): Previously seen by hematology due to hx PE, on ASA only. Repeat labs, refer to hematology only if needed. Anxiety 05/19/2012 Vitamin B 12 deficiency 03/09/2012 06/06/20 23 Assessment & Plan (12/01/2024 8:07 PM EDT): Recheck levels, change needed p.o. supplementation more recently and previously on iron supplementation every month. Migraines 03/09/2012 06/06/2023 Indigestion 03/09/2012 Vaginitis and vulvovaginitis 03/09/2012 Ulnar neuropathy 03/09/2012 Mixed anxiety and depressive disorder 03/09/2012 Asthma 03/09/2012 Assessment & Plan (12/01/2024 8:10 PM EDT): Doing well on Arnuity daily, continue albuterol as needed. Advised importance of avoid smoking We will follow-up on influenza immunization in the fall Assessment & Plan (06/25/2024 3:01 PM EST): Controlled, continue Arnuity inhaler + Albuterol prn + Singulair Declined Covid and Inluenza IZ Assessment & Plan (03/24/2024 12:34 PM EDT): - seems to be better controlled status post covid - continue Fluticasone daily + Albuterol PRN only - advised to get covid/flu IZ in the fall History of hysterectomy 03/09/1996 Resolved Problems Problem Noted Date Diagnosed Date Resolved Date Class 1 obesity due to exces s calories without serious comorbidity with body mass index (BMI) of 31.0 to 31.9 in adult 02/04/202412/2023 Elevated troponin level 11/07/2023 12/0 12/2023 Assessment & Plan (11/07/2023 12:57 PM EDT): At the ED, there were reportedly no EKG changes Pt is chest pain free at this time, order labs for fu troponins Information regarding cardiology referral was given tot pt, will fax ED visit notes once appointment is established Obesity (BMI 30-39.9) 09/19/20232024 Assessment & Plan (02/04/2024 1:56 PM EDT): She has gained weight recently, agree to start Wellbutrin low dose, fu in 3m Discussed re weight reduction options including exercise, life style modifications, diet and referral to child protective services specialist, she declined. Recommended to decrease soda and sugary beverage consumption, increase protein intake with meals (at least 1 portion of protein with each meal) to assist with satiety, increase dietary fiber Recommended at least 150 min/week of moderate intensity exercise. Assessment & Plan (09/19/2023 10:56 AM EST): Discussed re weight reduction options including exercise, life style modifications, diet, referral to child protective services specialist. Discussed re lower calorie intake, increase dietary fiber Will refer to hod carrier Diabetes mellitus 06/06/2023 06/06/2023 06/06/2023 Moderate asthma 06/06/2023 06/06/2023 06/06/2023 Dizziness 06/22/2012 06/25/2024 Encounters Date Type Department Care Team Description 04/07/2025 Refill [facility] CHC MED & PEDS [address] [place], [place] [phone] Lj Mckay MD 03/24/2025 Refill [facility] MEDICINE [address] [place] [address] Lj Mckay MD 03/17/2025 Refill [facility] MEDICINE [address] [place] [address] Lj Mckay MD 03/13/2025 Refill [facility] MEDICINE [address] [place], [place] [phone] Lj Mckay MD 03/02/2025 9:30 AM EDT Office Visit [facility] OPTOMETRY [address] [place], [place] [phone] Rao, Jael, OD Hyperopia of both eyes (Primary Dx) 03/02/2025 Travel 03/01/2025 Refill [facility] MEDICINE [address] [place] [address] Lj Mckay MD Interstitial cystitis (chronic) with hematuria 02/23/2025 Results Follow-Up [facility] MEDICINE [address] [place] [address] Lj Mckay MD XR Hip 2 or 3 Views Left, XR Lumbar Spine Complete 4+ Views 02/22/2025 9:45 AM EDT Office Visit [facility] MEDICINE [address] [place] [address] Lj Mckay MD Overweight (Primary Dx); Stenosis of intervertebral foramina; Iliopsoas bursitis of left hip; Moderate persistent asthma without complication; IFG (impaired fasting glucose); Mild intermittent asthma without complication 02/22/2025 Travel 02/18/2025 Refill [facility] MEDICINE [address] [place] [address] Lj Mckay MD 01/30/2025 Refill [facility] CHC MED & PEDS [address] [place], [place] [phone] Lj Mckay MD Arthritis 01/21/2025 Refill [facility] MEDICINE [address] [place], [place] [phone] Lj Mckay MD Vitamin D deficiency 01/14/2025 Refill [facility] MEDICINE [address] [place] [address] Lj Mckay MD from Last 3 Months Immunizations Immunization Administration Dates Next Due Influenza injectable quadriv alent IIV4 with preservative 06/19/2017 Influenza, IIV3, injectable 04/30/2011 Pneumococcal Polysaccharide PPSV23 01/26/2016 Tdap 02/15/2011 Social History Tobacco Use Types Packs/Day Years Used Date Smoking Tobacco: Every Day Cigarettes Passive Smoke Exposure: Never Smokeless Tobacco: Never Tobacco Cessation:Ready to Q uit: Not Asked; Counseling Given: Not Answered Alcohol Use Standard Drinks/Week Comments Not Currently [...] the past 12 months, has t he [email or web address], gas, oil or water company threatened to [...] Orientation Straight 05/20/2022 10 :14 AM EDT Last Filed Vital Signs Vital Sign Reading Time Taken Comments Blood Pressure 130/80 02/22/2025 8:55 AM EDT Pulse 80 02/22/2025 8:55 AM EDT Temperature 36.3 C (97.3 F) 02/22/2025 8:55 AM EDT Respiratory Rate 18 02/22/2025 8:55 AM EDT Oxygen Saturation 100% 11/22/2024 11:14 AM EDT Inhaled Oxygen Concentration - - Weight 63.3 kg (139 lb 9.6 oz) 02/22/2025 8:55 A M EDT Height 160 cm (5' 3 ) 02/22/2025 8:55 AM EDT Body Mass Index 24.73 02/22/2025 8:55 AM EDT Plan of Treatment Health Maintenance Due Date Last Done Comments CT Colonography 1965 FIT DNA/Cologuard 1965 FIT 1965 FOBT 1965 HIV Screening 1965 Sigmoidoscopy 1965 Alcohol/Substance Use Screening 1977 Hepatitis C Screening 1983 Hepatitis B Vaccines (1 of 3 - 19+ 3-dose series) 1984 Zoster Vaccines (1 of 2) 2015 Pneumococcal Vaccine: 50+ Years (2 of 2 - PCV) 01/25/2017 01/26/2016 DTaP/Tdap/Td Vaccines (2 - T d or Tdap) 02/15/2021 02/15/2011 Mammogram 01/02/2023 01/02/2021, 05/05/2018 Colonoscopy 02/16/2024 02/15/2019 Colorectal Cancer Screening 02/16/2024 COVID-19 Vaccine (3 - 2024-2 6 season) 2025 06/27/2021, 06/06/2021 Influenza Vaccine (#1) 2025 7, 04/30/2011 Depression Monitoring 08/25/2025 02/22/2025 , 02/22/2025 SDOH Screening 11/16/2025 11/16/2024 Disability Screening 02/22/2026 02/22/2025 Tobacco Screening 02/22/2026 02/22/2025 Lipid Panel 01/20/2030 01/20/2025, 06/06/2023 RSV Patients and Patients Aged 60 years or older (1 - 1-dose 75+ series) 2040 HIB Vaccines Aged Out No longer eligi ble based on patient's age to complete this topic HPV Vaccines Aged Out No longer eligi ble based on patient's age to complete this topic Hepatitis A Vaccines Aged Out No long er eligible based on patient's age to complete this topic IPV Vaccines Aged Out No longer eligi ble based on patient's age to complete this topic Meningococcal B Vaccine Aged Out No l onger eligible based on patient's age to complete this topic Meningococcal Vaccine Aged Out No kelsey bisi eligible based on patient's age to complete this topic RSV under 20 months Aged Out No longe r eligible based on patient's age to complete this topic Rotavirus Vaccines Aged Out No longer eligible based on patient's age to complete this topic Procedures Procedure Name Priority Date/Time Associated Diagnosis Comments XR HIP 2 OR 3 VIEWS LEFT Routine 02/22/2025 9:28 AM EDT Stenosis of intervertebral foramina Iliopsoas bursitis of left hip XR LUMBAR SPINE COMPLETE 4+ VIEWS Routine 02/22/2025 9:18 AM EDT Stenosis of intervertebral foramina Iliopsoas bursitis of left hip VITAMIN B12/FOLATE, SERUM PANEL Routine 01/20/2025 9:52 AM EDT Vitamin B 12 deficiency COMPREHENSIVE METABOLIC PANEL Routine 01/20/2025 9:52 AM EDT Primary hypertension VITAMIN D,25-OH,TOTAL,IA Routine 01/20/2025 9:52 AM EDT Overweight TSH W/REFLEX TO FT4 Routine 01/20/2025 9 :52 AM EDT Overweight LIPID PANEL WITH REFLEX TO DIRECT LDL Routine 01/20/2025 9:52 AM EDT Overweight Primary hypertension MAMMOGRAM GENERIC Routine 01/02/2021 12: 10 PM EDT HM COLONOSCOPY Routine 02/15/2019 5:53 AM EDT from Last 3 Months or Most Recently Relevant to Health Maintenance Results * XR Hip 2 or 3 Views Left (02/22/2025 9:28 AM EDT) Anatomical Region Laterality Modality Lower Extremities, Hip Left Radiograp hic Imaging 02/22/2025 9:28 AM EDT Narrative 02/22/2025 11:22 [place] [address] XRay Report Signed Patient: Annabella Gillespie I MR#: [id number] 3 : 1965 Acct:[id number] Age/Sex: 59 / F ADM Date: 02/22/25 Loc: HO.HHCX Attending Dr: Lj Mckay MD Ordering Physician: Lj Mckay MD Date of Service: 02/22/25 Procedure(s): XR hip LT min 2V Accession Number(s): [id number] cc: Lj Mckay MD EXAMINATION: XR HIP, LEFT CLINICAL INFORMATION: LBP/left hip pain COMPARISON: None available. TECHNIQUE: Two views of the left hip. FINDINGS: Hip joint spaces preserved. Minimal marginal ossified is present along the lateral femoral head and acetabular roof. There is possible vacuum phenomena in the left SI joint. There is sclerosis and asymmetric narrowing with mild offset involving the pubic symphysis joint. XR/XR hip LT min 2V IMPRESSION: Minimal degenerative changes in the left hip and SI joint. Moderate degeneration of the pubic symphysis joint. Electronically signed by: Adnois Bedoya MD 02/22/2025 11:20 AM EDT RP Dictated By: Adonis Bedoya MD Signed By: <Electronically signed by Adonis Bedoya MD in OV> 02/22/25 1120 DD/ 7 TD/TT: 02/22/25929 Taxi Servicer: Procedure Note Donotuseinterpreter, Image - 02/22/[address] [address] XRay Report Signed Patient: Annabella Gillespie IMR#: [id number] 3 : 1965Acct:[id number] Age/Sex: 59 / FADM Date: 02/22/25 Loc: HO.HHCX Attending Dr: Lj Mckay MD Ordering Physician: Lj Mckay MD Date of Service: 02/22/25 Procedure(s): XR hip LT min 2V Accession Number(s): [id number] cc: Lj Mckay MD EXAMINATION: XR HIP, LEFT CLINICAL INFORMATION: LBP/left hip pain COMPARISON: None available. TECHNIQUE: Two views of the left hip. FINDINGS: Hip joint spaces preserved. Minimal marginal ossified is present along the lateral femoral head and acetabular roof. There is possible vacuum phenomena in the left SI joint. There is sclerosis and asymmetric narrowing with mild offset involving the pubic symphysis joint. XR/XR hip LT min 2V IMPRESSION: Minimal degenerative changes in the left hip and SI joint. Moderate degeneration of the pubic symphysis joint. Electronically signed by: Adonis Bedoya MD 02/22/2025 11:20 AM EDT RP Dictated By: Adonis Bedoya MD Signed By: <Electronically signed by Adonis Bedoya MD in OV> 02/22/25 1120 DD/ 0928 TD/TT: 02/22/25 0930 Taxi Servicer: Lj Mckay MD IMG XR PROCEDURES Edited Result - Final * XR Lumbar Spine Complete 4+ Views (02/22/2025 9:18 AM EDT) Anatomical Region Laterality Modality Spine, L-spine Radiographic Marisa ging 02/22/2025 9:18 AM EDT Narrative 02/22/2025 11:28 AM EDT [address] [address] XRay Report Signed Patient: Annabella Gillespie I MR#: [id number] 3 : 1965 Acct:[id number] Age/Sex: 59 / F ADM Date: 02/22/25 Loc: HO.HHCX Attending Dr: Lj Mckay MD Ordering Physician: Lj Mckay MD Date of Service: 02/22/25 Procedure(s): XR lumbar spine 4V min Accession Number(s): [id number] cc: Lj Mckay MD Examination: 5 view lumbar spine x-ray. TECHNIQUE: AP, lateral, lateral spot, and bilateral oblique views, lumbar spine x-ray INDICATION: Low back pain with left hip pain Prior: MRI from June 27, 2020 FINDINGS: There is a transitional S1 segment with mild lumbarization. There is mild chronic wedging of L1 and L2 superior endplates. T12-L1: There is mild loss of disc height and subtle retrolisthesis there is anterior osteophyte at L1. L1-L2: There is mild loss disc height and minimal retrolisthesis with anterior osteophytes L2-L3: There is mild loss disc height and mild grade 1 retrolisthesis with small anterior osteophytes L3-L4: There is minimal loss of disc height and subtle retrolisthesis with small endplate osteophytes. There is facet sclerosis. L4-L5: There is grade 1 anterolisthesis with mild to moderate loss of disc height and endplate osteophytes. There is facet sclerosis. L5-S1: There is mild loss disc height and minimal grade 1 anterolisthesis. There is facet sclerosis. There is an interspinous process metallic clamp. XR/XR lumbar spine 4V min IMPRESSION: Multilevel degenerative disc disease and facet osteoarthritis status post spinous process clamp at L5-S1. Electronically signed by: Adonis Bedoya MD 02/22/2025 11:25 AM EDT RP Dictated By: Adonis Bedoya MD Signed By: <Electronically signed by Adonis Bedoya MD in OV> 02/22/25 1125 DD/ 7 TD/TT: 02/22/25 0930 Taxi Servicer: Procedure Note Donotuseinterpreter, Image - 02/22/2025 [place] [address] XRay Report Signed Patient: Annabella Gillespie IMR#: [id number] 3 : 1965Acct:[id number] Age/Sex: 59 / FADM Date: 02/22/25 Loc: HO.HHCX Attending Dr: Lj Mckay MD Ordering Physician: Lj Mckay MD Date of Service: 02/22/25 Procedure(s): XR lumbar spine 4V min Accession Number(s): [id number] cc: Lj Mckay MD Examination: 5 view lumbar spine x-ray. TECHNIQUE: AP, lateral, lateral spot, and bilateral oblique views, lumbar spine x-ray INDICATION: Low back pain with left hip pain Prior: MRI from June 27, 2020 FINDINGS: There is a transitional S1 segment with mild lumbarization. There is mild chronic wedging of L1 and L2 superior endplates. T12-L1: There is mild loss of disc height and subtle retrolisthesis there is anterior osteophyte at L1. L1-L2: There is mild loss disc height and minimal retrolisthesis with anterior osteophytes L2-L3: There is mild loss disc height and mild grade 1 retrolisthesis with small anterior osteophytes L3-L4: There is minimal loss of disc height and subtle retrolisthesis with small endplate osteophytes. There is facet sclerosis. L4-L5: There is grade 1 anterolisthesis with mild to moderate loss of disc height and endplate osteophytes. There is facet sclerosis. L5-S1: There is mild loss disc height and minimal grade 1 anterolisthesis. There is facet sclerosis. There is an interspinous process metallic clamp. XR/XR lumbar spine 4V min IMPRESSION: Multilevel degenerative disc disease and facet osteoarthritis status post spinous process clamp at L5-S1. Electronically signed by: Adonis Bedoya MD 02/22/2025 11:25 AM EDT Dictated By: Adonis Bedoya MD Signed By: <Electronically signed by Adonis Bedoya MD in OV> 02/22/25 1125 DD/ 0918 TD/TT: 02/22/25 0930 Taxi Servicer: Lj Mckay MD IMG XR PROCEDURES Edited Result - Final * (ABNORMAL) Vitamin D, 25-Hydroxy, Total, Immunoassay (01/20/2025 9:52 AM EDT) Vitamin D 25-OH Total 29.7(L) >30 ng/mL [facility] Comment: Health Based Reference Values*< 20 ng/mL Nscfodiqq21-37 ng/mL Insufficient> 30 ng/mL Sufficient*Laci MCALLISTER. N Engl J Med. 2007;357:266-280There is no well-established upper level of normal vitamin Dlevels. Some laboratories use 50 ng/mL as an upper limit ofnormal. However, toxicity is patient-dependent and may occurat any level. Careful correlation with the patient'spresentation is necessary and, if there is concern forvitamin D toxicity, treatment should be consideredirrespective of the serum level.Care must be taken in interpreting Vitamin D results fromdifferent laboratories and methodologies. Published datademonstrated that results from patients undergoinghemodialysis may show a negative bias when tested withvarious automated 25-OH vitamin D assays when compared toLC-MS/MS.When testing samples from patients whose predominant form ofVitamin D is Vitamin D2, such as patients receiving VitaminD2 supplementation, results that are subtherapeutic shouldbe confirmed with another method such as LC-MS/MS. Blood 01/20/2025 9:52 AM EDT 01/20/2025 11:02 AM EDT us Lj Mckay MD LAB BLOOD ORDERABLES Fin al Result Performing Organization Address City/[facility]/ZIP Co de Phone Number [facility] [address] [place] [phone] * Vitamin B12/Folate, Serum Panel (01/20/2025 9:52 AM EDT) Vitamin B12 436 200 - 900 pg/mL [facility] Comment:NORMAL 200-900 PG/ML INDETERMINATE 160-199 PG/ML DEFICIENT < 160 PG/ML Folate 10.7 > or = 4.0 ng/mL [facility] Comment:Reference Values:> o r = 4.0 ng/mL< 4.0 ng/mL suggests folate deficiency Methotrexate, aminopterin and folinic acid(leucovorin) are chemotherapeutic agents whose molecularstructures are similar to folate; therefore, the Architectfolate assay cannot be used for patients using these drugs. Blood Venous blood specimen / Unknown 01/20/2025 9:52 AM EDT 01/20/2025 11:02 AM EDT us Lj Mckay MD LAB BLOOD ORDERABLES Fin al Result Performing Organization Address [facility]/ZIP Co de Phone Number [facility] [address] [place] [phone] [phone] * TSH with Reflex to Free T4 (01/20/2025 9:52 AM EDT) TSH reflex Free T4 1.11 0.32 - 4.0 uIU/mL [facility] Blood 01/20/2025 9:52 AM EDT 01/20/2025 11:02 AM EDT us Lj Mckay MD LAB BLOOD ORDERABLES Fin al Result Performing Organization Address [facility] de Phone Number [facility] [address] [place] [address] [phone] * (ABNORMAL) Lipid Panel with Reflex to Direct LDL (01/20/2025 9:52 AM EDT) Triglycerides 120 <150 mg/dL [facility] Comment:Desirable Triglyceri de: less than 150 mg/dLBorderline High Triglyceride 150-199 mg/dLHigh Triglyceride: 200-499 mg/dLVery High Triglyceride: greater than or equal to 5OO mg/dL Cholesterol 195 <200 mg/dL [facility] Comment:Desirable Cholestero l: less than 200 mg/dLBorderline High Cholesterol: 200-239 mg/dLHigh Cholesterol: greater than 239 mg/dL LDL Cholesterol Calculated 121(H) <100 mg/dL [facility] Comment:Desirable LDL: less than 100 mg/dLNear Optimal/Above Optimal LDL: 110- 129 mg/dLBorderline High LDL: 130-159 mg/dLHigh LDL: 160-189 mg/dLVery High LDL: greater than or equal to 190 mg/dL HDL Cholesterol 50 >40 mg/dL [facility] Comment:Desirable HDL: great er than 40 mg/dL Note: This HDL assay may give artificially low results in patients with liver disease. Blood 01/20/2025 9:52 AM EDT 01/20/2025 11:02 AM EDT Lj Mckay MD LAB BLOOD ORDERABLES Fin al Result Performing Organization Address [facility] Co de Phone Number [facility] [address] [place] [address] [phone] * Comprehensive Metabolic Panel (01/20/2025 9:52 AM EDT) Sodium 139 135 - 145 mmol/L [facility] Potassium 4.1 3.3 - 5.1 mmol/L [facility] Chloride 103 96 - 108 mmol/L [facility] Carbon Dioxide 27 22 - 29 mmol/L [facility] Anion Gap 13 12 - 20 [facility] Urea Nitrogen (BUN) 10 9 - 16 mg/dL [facility] Creatinine, Serum 0.91 0.5 - 1.4 mg/dL [facility] Estimated Glomerular Filt Rate >60 [facility] Comment:Chronic Kidney Disea se: Estimated GFR < 60 mL/min/1.53o8Hpuvko Kidney Disease: Estimated GFR < 15 mL/min/1.73m2 Glucose 90 60 - 115 mg/dL [facility] Calcium 9.6 8.4 - 10.2 mg/dL [facility] Bilirubin, Total 0.7 0.0 - 1.0 mg/dL [facility] Aspartate Amino Transferase 30 5 - 31 U/L [facility] Alanine Aminotransferase 27 0 - 31 U/L [facility] Total Protein 7.6 6.5 - 8.0 g/dL [facility] Albumin Level 4.7 3.5 - 5.0 g/dL [facility] Alkaline Phosphatase 60 39 - 117 U/L [facility] Blood Venous blood specimen / Unknown 01/20/2025 9:52 AM EDT 01/20/2025 11:02 AM EDT us Lj Mckay MD LAB BLOOD ORDERABLES Fin al Result [facility] [address] [place] [phone] * Mammography Report 1 (01/02/2021 12:10 PM EDT) Anatomical Region Laterality Modality Breast Bilateral Mammography 01/02/2021 12:1 0 PM EDT Narrative 01/03/2021 1:39 PM EDT Refer to the Notes tab for result details [facility] Procedure: Mammography Report 1 Procedure Note Provider, MD Celso - 10/13/2022 Refer to the Notes tab for result details [facility] Procedure: Mammography Report 1 Lj Mckay MD IMG BI PROCEDURES Final Result * Hm Colonoscopy (02/15/2019 5:53 AM EDT) Historical Provider HEALTH MAINTENANCE Final Result from Last 3 Months or Most Recently Relevant to Health Maintenance Insurance [facility] [address] [place] [id number] Care Teams Rad Technologist Relationship Specialty Start Date End Date Lj Mckay MD [address] [place] [address] PCP - General Family Medicine 08/08/16 Allison Almanza Electric Needle SpecialistStyle Advisor 01/08/24
== END 2025-04-14 11:08 | disposition home or self-care (01) ==
LOC: HO.PMC 10:12
PROVIDERS: PCP Internal Medicine; Visit Provider Anesthesiology
DX: M47.816 Spondylosis without myelopathy or radiculopathy, lumbar region (principal); M53.3 Sacrococcygeal disorders, not elsewhere classified; M46.1 Sacroiliitis, not elsewhere classified; M54.2 Cervicalgia; M47.812 Spondylosis without myelopathy or radiculopathy, cervical region
CPT/HCPCS: 99213

== ENCOUNTER → 2025-04-14 10:12 | Outpatient (BNVA) | payer MEDICAID, SELFPAY | PROVIDERS: PCP Internal Medicine; Visit Provider Anesthesiology | DX: M25.552 Pain in left hip (principal); M47.816 Spondylosis without myelopathy or radiculopathy, lumbar region; M53.3 Sacrococcygeal disorders, not elsewhere classified; M46.1 Sacroiliitis, not elsewhere classified; M47.812 Spondylosis without myelopathy or radiculopathy, cervical region; M54.2 Cervicalgia | CPT/HCPCS: 99212 ==

== ENCOUNTER 2025-05-17 06:27 | Outpatient (REF) | payer MEDICAID, SELFPAY ==
--- NOTE | ~2025-05-17 | FL_ITS ---
EXAMINATION: FLUOROSCOPY GUIDANCE FOR NEEDLE PLACEMENT CLINICAL INFORMATION: M46.1 - Sacroiliitis, not elsewhere classified COMPARISON: Lumbar spine and left hip x-ray February 2025 TECHNIQUE: Fluoroscopic guidance for pain management procedure FINDINGS: Images demonstrate needle placement and contrast injection of the left sacroiliac joint. FLUOROSCOPY TIME: 8 seconds. 2 saved fluoroscopic images. DOSE AREA PRODUCT: 87 uGy-m2 (microgray-meter squared) FL/FL guidance in treatment room IMPRESSION: Fluoroscopic guidance for pain management procedure. Electronically signed by: Kimmie Leonard MD 05/17/2025 03:47 PM EDT
--- OUTSIDE RECORDS SUMMARY | 2025-05-17 06:30 | XMS_ITS | Encounter Summary ---
Author Organization [employer] Address [address] [facility] 7 [place] [address] Care Team Providers Care Workers Compensation Claims Adjuster Name Role Phone Ayala Mckay MD Primary Care Provider + Reason for Visit * Reason Comments Med Change Request Encounter Details Date Type Department Care Team ([facility] Contact Info) Description 12/10/2024 Refill [facility] MEDICINE [address] [place] [address] Ayala Mckay MD [address] [place] [address] Social History Tobacco Use Types Packs/Day Years [...] Care Team (Late st Contact Info) Description 06/10/2025 9:00 AM EST Nutrition [facility] DIABETES/NUTRITION [address] [place] [phone] Mellissa Zamarripa, RD [address] [place] [address] 07/01/2025 9:15 AM EST Office Visit [facility] MED[facility] [address] [place] [phone] Ayala Mckay MD [address] [place] [phone] documented as of this encounter Visit Diagnoses Not on filedocumented in this encounter Additional Health Concerns Assessment Noted Time PHQ-9 Depression Total Score: 20 024 12:08 PM EDT documented as of this encounter Care Teams Workers Compensation Claims Adjuster Relationship Specialty Start Date End Date Ayala Mckay MD [address] [place] [phone] PCP - General Family Medicine 08/08/16 Allison Almanza Lean CoachChiropractic Assistant 01/08/24 documented as of this encounter
--- OUTSIDE RECORDS SUMMARY | 2025-05-17 06:30 | XMS_ITS | Encounter Summary ---
Author Organization [employer] Address [address] [facility] 7 [place] [address] Care Team Providers Care Modular Home Crew Member Name Role Phone Ayala Mckay MD Primary Care Provider + Reason for Visit * Reason Onset Date Comments Med Refill 03/24/2025 Encounter Details Date Type Department Care Team (Late st Contact Info) Description 03/24/2025 Refill [facility] [address] [place] [address] Ayala Mckay MD [address] [place] [address] Social History Tobacco Use Types Packs/Day Years [...] Info) Description 06/10/2025 9:00 AM EST Nutrition [facility] DIABETES/NUTRITION [address] [place] [phone] Mellissa Zamarripa, RD [address] [place] [address] 07/01/2025 9:15 AM EST Office Visit [facility] [address] [place] [phone] Ayala Mckay MD [address] [place] [phone] documented as of this encounter Visit Diagnoses Not on filedocumented in this encounter Additional Health Concerns Assessment Noted Time PHQ-9 Depression Total Score: 10 025 9:29 AM EDT documented as of this encounter Care Teams Modular Home Crew Member Relationship Specialty Start Date End Date Ayala Mckay MD [address] [place] [phone] PCP - General Family Medicine 08/08/16 Allison Almanza Bell TierWeb Press Operator Apprentice 01/08/24 documented as of this encounter
--- OUTSIDE RECORDS SUMMARY | 2025-05-17 06:30 | XMS_ITS | Encounter Summary ---
Author Organization [employer] Address [address] [facility] 7t [place] [address] Care Team Providers Care Echo Tech Name Role Phone Ayala Mckay MD Primary Care Provider + Encounter Details Date Type Department Care Team ([facility] st Contact Info) Description 12/19/2023 Orders Only [facility] MEDICINE [address] [place], [place] [phone] Provider, MD Celso Social History Tobacco Use [...] Info) Description 06/10/2025 9:00 AM EST Nutrition [facility] DIABETES/NUTRITION [address] [place] [address] [place] [address] 07/01/2025 9:15 AM EST Office Visit [facility] MEDICINE [address] [place] [address] Ayala Mckay MD [address] [place] [address] documented as of this encounter Procedures Procedure [...] documented as of this encounter Care Teams Echo Tech Relationship Specialty Start Date End Date Ayala Mckay MD [address] [place] [phone] PCP - General Family Medicine 08/08/16 Allison Almanza Machine Strap BucklerProduct Promoter Sales Person 01/08/24 documented as of this encounter
--- OUTSIDE RECORDS SUMMARY | 2025-05-17 06:30 | XMS_ITS | Encounter Summary ---
Author Organization [email or web address] [facility] Address [address] [place] [address] [address] [address] Care Team Providers Care Mushroom Growth Media Mixer Name Role Phone Ayala Mckay MD Primary Care Provider + Encounter Details Date Type Department Care Team (Late st Contact Info) Description 08/13/2022 Orders Only [facility] MEDICINE [address] [place] [address] [phone] Qian Bansal LPN Social History Tobacco Use [...] Info) Description 06/10/2025 9:00 AM EST Nutrition [facility] DIABETES/NUTRITION [address] [place] [phone] [place] [address] 07/01/2025 9:15 AM EST Office Visit [facility] MEDICINE [address] [place] [address] [phone] Ayala Mckay MD [address] [place] [address] documented as of this encounter Visit Diagnoses Not on filedocumented in this encounter Care Teams Mushroom Growth Media Mixer Relationship Specialty Start Date End Date Ayala Mckay MD [address] [place] [address] PCP - General Family Medicine 08/08/16 Allison Almanza Golf Club RepairerAudit Officer 01/08/24 documented as of this encounter
--- OUTSIDE RECORDS SUMMARY | 2025-05-17 06:30 | XMS_ITS | Encounter Summary ---
Author Organization [employer] Address [address] [place] [address] 7 [place] [address] Care Team Providers Care Swimming Pool Service Technician Name Role Phone Ayala Mckay MD Primary Care Provider + Reason for Visit * Reason Comments Med Refill Encounter Details Date Type Department Care Team (Late Contact Info) Description 09/26/2023 Refill [facility] CHC MED & PEDS [address] [place], [place] [phone] Ayala Mckay MD [address] [place], [place] [phone] Arthritis; Vitamin D deficiency Social History Tobacco [...] Encounters Date Type Department Care Team (Late Contact Info) Description 06/10/2025 9:00 AM EST Nutrition [facility] DIABETES/NUTRITION [address] [place], [place] [phone] Mellissa Zamarripa RD [address] [place], [place] [phone] 07/01/2025 9:15 AM EST Office Visit [facility] MEDICINE [address] [place] [address] Ayala Mckay MD [address] [place] [address] documented as of this encounter Visit Diagnoses Diagnosis Arthritis Unspecified arthropathy, site unspecified Vitamin D deficiency documented in this encounter Care Teams Swimming Pool Service Technician Relationship Specialty Start Date End Date Ayala Mckay MD [address] [place] [phone] PCP - General Family Medicine 08/08/16 Allison Almanza Stamping Die MakerSpice Miller 01/08/24 documented as of this encounter
--- OUTSIDE RECORDS SUMMARY | 2025-05-17 06:30 | XMS_ITS | Encounter Summary ---
Author Organization [employer] Address [address] [place] [address] [address] Care Team Providers Care Jewel Hole Driller Name Role Phone Ayala Mckay MD Primary Care Provider + Encounter Details Date Type Department Care Team (Late st Contact Info) Description 12/02/2022 Orders Only [facility] CHC MED & PEDS [address] [place], [place] [phone] Felisa Zapata LPN Social History Tobacco Use [...] Info) Description 06/10/2025 9:00 AM EST Nutrition [facility] DIABETES/NUTRITION [address] [place] [phone] [place] [address] 07/01/2025 9:15 AM EST Office Visit [facility] MEDICINE [address] [place] [phone] Ayala Mckay MD [address] [place] [address] documented as of this encounter Visit Diagnoses Not on filedocumented in this encounter Care Teams Jewel Hole Driller Relationship Specialty Start Date End Date Ayala Mckay MD [address] [place] [phone] PCP - General Family Medicine 08/08/16 Allison Almanza Youth Care ProfessionalSports Trainer 01/08/24 documented as of this encounter
--- OUTSIDE RECORDS SUMMARY | 2025-05-17 06:30 | XMS_ITS | Data Portability ---
Author Organization [place] [facility], Allergy Address [address] [address] Care Team Providers Care Rn Residential Name Role Phone MOHSENLJ ALTMAN Primary Care Provider [phone] Assessment Encounter Date Assessment Date Assessment LastModified by Organization Details LastModified Time 08/30/2024 08/30/2024 We discussed franny t her symptoms of lightheadedness are not consistent with an otologic cause to her symptoms and exam including Udell Hallpike and Fukuda step testing were normal. There is a mild to moderate mostly HF hearing loss for which she is a borderline candidate for amplification. We did discuss that her migraines are likely contributing to her symptoms, and we did review some information regarding the migraines. I did also recommend follow up with her neurologist whom she has not seen in some time. [email or web address] Not available 09/15/2024 05:42:39 Plan of Treatment Reminders Order Date Submit Date Provider Last Modified By Organization Details Last Modified Time Details Appointments None record ed. Lab None record ed. Referral None record ed. Procedures None record ed. Surgeries None record ed. Imaging None record ed. Medication Orders None record ed. Patient TargetsNo targets recorded. Patient InstructionsNo instructions recorded. Reason for Referral None Reported. Results Created Date Observation Date Name Description Value Unit Range Abnormal Flag Note LastModifiedBy Organization Detail LastModifiedTime 08/30/19 25 audio gram No observ ation record ed. BARCODE Not Available 2024 18:19:19 Result Notes None recorded. Problems Name Problem SNOMED Code Status Onset Date Resolution Date Notes Provider Name and Address Organization Details Recorded Time Sensorineural hearing loss of bilateral ears 156870958 Active 2024 MOHSEN TOBIAS, AUD [address] [address], [place], [phone], [facility] [place] 14:10:51 Dizziness and giddiness 845699703 Active 2024 ARJUN PHILIPPE MD [address] [address], [place], [address], [facility] [place] 05:39:44 Problem Notes None recorded. Procedures Surgical History Date Name Laterality Status Provider Name and Address Organization Details Recorded Time 08/30/2024 Comp Audio with Tymps - 19369 & 22413 completed MOHSEN JATINDER ESPERANZA 100 [facility] 100, [place], [address], [facility] [place] 08/30/2024 14:10:38 Imaging Results None recorded. Procedure Notes None recorded. Medical Equipment None Reported. Allergies No known drug allergies Medications Name Sig Start Date Stop Date Status Note LastModified by Organization Details LastModified Time tizanidine 2 mg tablet TAKE 1 -2 TABLETS BY MOUTH AT BEDTIME IF NEEDED FOR PAIN. MAY CAUSE DROWSINESS. active Not Available Not Available Not Available albuterol sulfate 2.5 mg/3 mL (0.083 %) solution for nebulization USE 1 VIAL VIA NEBULIZER THREE TIMES A DAY IF NEEDED FOR SHORTNESS OF BREATH/ASTH MA active Not Available Not Available No t Available phenazopyrid ine 200 mg tablet TAKE 1 TABLET BY MOUTH 2-3 TIMES EVERY DAY AFTER MEALS NEEDED active Not Available Not Available No t Available clonazepam 1 mg tablet TOME 1 TABLETA POR V A ORAL MAT VECES AL D A CUANDO SEA NECESARIO active Not Available Not Available No t Available aspirin 81 mg tablet,delay ed release TOME ONDINA TABLETA TODOS LOS D active Not Available Not Available No t Available bupropion HCl SR 100 mg tablet,12 hr sustained-re lease TAKE 1 TABLET (100 MG) BY MOUTH 2 TIMES DAILY. DO NOT CRUSH, CHEW, OR SPLIT. active Not Available Not Available No t Available losartan 25 mg tablet TAKE 1 TABLET (25 MG) BY MOUTH ONCE PER DAY. active Not Available Not Available No t Available Banophen 25 mg capsule TAKE 1-2 CAPSULES BY MOUTH AT BEDTIME FOR INSOMNIA active Not Available Not Available No t Available montelukast 10 mg tablet TOME 1 TABLETA POR V A ORAL TODOS LOS D AL ACOSTARSE active Not Available Not Available No t Available lisinopril 5 mg tablet TAKE 1 TABLET BY MOUTH DAILY active Not Available Not Available Not Available hydrochlorot hiazide 25 mg tablet TOME 1 TABLETA POR V A ORAL TODOS LOS D active Not Available Not Available No t Available gabapentin 100 mg capsule TOME 1 C PSULA POR V A ORAL TODOS LOS D active Not Available Not Available No t Available ergocalcifer ol (vitamin D2) 1,250 mcg (50,000 unit) capsule TOME 1 C PSULA POR V A ORAL ONDINA VEZ POR SEMANA active Not Available Not Available No t Available zolpidem 10 mg tablet TOME 1 TABLETA POR V A ORAL TODOS LOS D AL ACOSTARSE CUANDO SEA NECESARIO active Not Available Not Available No t Available fluticasone propionate 50 mcg/actuatio n nasal spray,suspen stef PLEASE SEE ATTACHED FOR DETAILED DIRECTIONS active Not Available Not Available N ot Available naproxen 500 mg tablet TOME 1 TABLETA POR V A ORAL DOS VECES AL D A CON ALIMENTO active Not Available Not Available No t Available Ventolin HFA 90 mcg/actuatio n aerosol inhaler INHALE 2 PUFFS EVERY 4 (FOUR) HOURS IF NEEDED FOR WHEEZING OR SHORTNESS OF BREATH. active Not Available Not Available N ot Available hydrochlorot hiazide 12.5 mg tablet TAKE 1 TABLET (12.5 MG) BY MOUTH ONCE PER DAY. RX SENT BY CARDIOLOGY, NO NEED FOR ADDTL REFILL active Not Available Not Available No t Available diclofenac 1 % topical gel APPLY 1 INCH TOPICALLY IF NEEDED IN THE MORNING AND AT BEDTIME FOR PAIN active Not Available Not Available No t Available Gavilax 17 gram/dose oral powder MIX 17G IN 4-8 OUNCES OF BEVERAGE AND DRINK TODOS LOS D EN LA MA LJ active Not Available Not Available No t Available Linzess 290 mcg capsule TAKE 1 CAPSULE BY MOUTH ON AN EMPTY STOMACH AT LEAST 30 MINUTES BEFORE FIRST MEAL OF THE DAY active Not Available Not Available N ot Available Arnuity Ellipta 200 mcg/actuatio n powder for inhalation INHALE 1 PUFF BY MOUTH ONCE A DAY. RINSE MOUTH AFTER USE. active Not Available Not Available N ot Available Lesleyvy 1 mg/0.5 mL subcutaneous pen injector INJECT 0.5 ML (1 MG) UNDER THE SKIN 1 (ONE) TIME PER WEEK. active Not Available Not Available No t Available Wegovy 0.25 mg/0.5 mL subcutaneous pen injector INJECT 0.25 MG SUBCUTANEOU SLY ONCE A WEEK active Not Available Not Available No t Available Wegovy 0.5 mg/0.5 mL subcutaneous pen injector INJECT 0.5 MG UNDER THE SKIN ONCE WEEKLY active Not Available Not Available Not Available Daily-Shiv (with folic acid) 400 mcg tablet TAKE 1 TABLET BY MY MOUTH EVERYDAY WITH FOOD active Not Available Not Available No t Available Paxlovid 300 mg (150 mg x 2)-100 mg tablets in a dose pack TOME MAT TABLETAS POR V A ORAL DOS VECES AL D A active Not Available Not Available No t Available Zepbound 2.5 mg/0.5 mL subcutaneous pen injector INJECT 0.5 ML (2.5 MG) UNDER THE SKIN 1 (ONE) TIME PER WEEK. active Not Available Not Available No t Available Vitals Date Recorded Body height Body mass index (BMI) Body weight Provider Name and Address Organization Details Last Updated DateTime 08/30/2024 160.02 cm 25.9 kg/m2 89904.49 g Radha Burns [place] - [facility] 08/30/2024 14:33:21 Social History None recorded. Functional Status None recorded. Mental Status None recorded. Family History Nothing Reported. Medical History Condition Response Heart Problems N Anxiety Y Tonsil Infections N Emphysema N Migraines Y Thyroid Problems N Glaucoma N Depression N COPD N Developmental Delay N Nasal or Sinus Problems N Immune System Disorder N Heart Attack (HI) N Other Skin Condition N Diabetes N Rhinitis N Bleeding Disorder N Food Allergy N Arthritis Y Hearing Loss N Hyperlipidemia N Cancer N Stroke N Dementia N Nasal polyps N Asthma Y Sleep Disorder N GERD/Reflux N High Cholesterol N Liver Disease N Headaches Y Fibromyalgia N Hypertension Y Speech Delay N Kidney Disease N Gynecological HistoryNo gynecological history recorded. Obstetrics History GPAL:G 0 P 0 0 0 0 Past Encounters Encounter ID Performer Location Encounter Start Date Encounter Closed Date Diagnosis/Indication Diagnosis SNOMED-CT Code Diagnosis ICD10 Code Diagnosis IMO Codes Diagnosis Note [id number] ARJUN PHILIPPE MD [facility] [address] [place] [address] 08/30/2024 13:23:53 08/30/2024 16:20:14 Sensorineural hearing loss of bilateral ears 370443121 H90.3 Audiologic al evaluation results: Mild to moderate sensorineu ral hearing loss with excellent word recognitio n, bilaterall y. Tympanomet ry:Right Ear:Type AsLeft Ear:Type As Dizziness and giddiness 457487760 R42 Health Concerns Section Related Observation LastModified by Organization Detai ls LastModified Time None Recorded Concern Status LastModified by Organization Details LastModified Time None Recorded Advance Directives Directive None Recorded Payers Insurance Date Sequence Insurance Name Policy Number Policy Gilman Covered Member ID Gilman Member ID Guarantor Name 08/31/2024 1 [place] [facility] Mike Gillespie [id number] Mike Gillespie Notes Date Note Type Note Provider Name and Address Organization Details Recorded Time 08/30/2024 text/html Here for tinnitus, dizziness, headache. Dizziness described like lightheaded feeling, like she is going to pass out. Has had symptoms for 8-9 months. Did some testing for the heart which is ok. Does have some HTN. Previously on meclizine 18 months ago. Was on GLP-1 inhibitor since April. Always has had headaches, migraines. No meds now. Sees Dr. Rodrigez. Has not seen for 4-5 years. Previously on medication, fioricet. Not eating as much. Lost 23 lbs. Drinking water. Sleep not great. Recent vision check, Needs new prescription. ARJUN PHILIPPE MD [address] [address], [place], [address], [facility] 09/15/2024 05:43:05 OBGyn Episode No OBEpisode recorded.
--- OUTSIDE RECORDS SUMMARY | 2025-05-17 06:30 | XMS_ITS | Patient Health Record ---
Author Organization [facility] Address [address] [place] [address] Care Team Providers Care Automobile Rental Clerk Name Role Phone Nely AMBROSE, Ayala Primary Care Provider Unavail able Lew Diehl Unavailable [phone] Allergies Allergen (clinical drug ingredient) Drug/Non Drug [...] of water Orally BID to TID for constipation; Duration: 30 days 10/29/2018 Active Elmiron 100 MG TAKE 2 CAPSULES TWIC E A DAY Oral; Duration: 30 Active Albuterol Sulfate (2.5 MG/3ML) 0.083% INHALE 1 VIAL VIA NEBULIZER 3 TIMES EVERY DAY NEEDED FOR SHORTNESS OF BREATH/ASTHMA Inhalation; Duration: 4 Active ProAir HFA 108 (90 Base) MCG/ACT TAKE 2 PUFFS BY MOUTH EVERY 4 TO 6 HOURS NEEDED Inhalation; Duration: 25 Active clonazePAM 1 MG (Schedule IV Drug) T MARIA ELENA 1 TABLET BY MOUTH TWICE A DAY NEEDED AND 1/2 AT BEDTIME. Oral; Duration: 30 Active Flovent HFA 110 MCG/ACT 1 [...] 2-3 TIMES EVERY DAY AFTER MEALS NEEDED Oral; Duration: 20 Active MiraLax (colon prep) 8.3 ounce ((238) grams mixed with Gatorade or Crystal Light orally begin at 5:00 p.m. 2 days before the procedure; Duration: 2 days 11/09/2018 Active Linzess 290 MCG 1 capsule Orally Onc e a day; Duration: 30 day(s) Active Dulcolax (colon prep) 5 MG take at 3:00 p.m and 7:00p.m. Orally 2 tablets 2 days before the exam, then two tablets twice a day for one day; Duration: 2 days 11/09/2018 Active Fish Oil 1000 MG 1 capsule Orally Onc e a day; Duration: 30 day(s) Active Zolpidem Tartrate 10 MG (Schedule IV Bhaskar g) TAKE 1 TABLET BY MOUTH AT BEDTIME NEEDED INSOMNIA Oral; Duration: 30 Active Immunizations Vaccine Route Administration Date [...] Problem Status W/U Status Risk Notes Problem Screening for malignant neoplasm of colon (758950514) Encounter for screening for malignant neoplasm of colon (Z12.11) Active confirmed Problem History of adenomatous polyp of colon (709979182) History of adenomatous polyp of colon (Z86.010) Active confirmed Problem Family History of Cancer of Colon (Situation) (374421932) Family history of colon cancer (Z80.0) Active confirmed Problem Constipation (89108944) Constipation, unspecified constipation type (K59.00) Active confirmed Plan Of Treatment Future Test Test Name Order Date COLONOSCOPY 03/16/2013 COLONOSCOPY 10/29/2018 Insurance Providers Payer Name Payer Address Payer Phone Subscriber Number Group Number Insured Name Patient Relationship to Insured Coverage Start Date Coverage End Date [place] [address] [place] [phone] [id number] DOMINGO SANCHEZ Self - patient is the insured Medical (General) History Medical History History ICD Code [id number] hiatal h ernia-EGJ dilated with an 18mm balloon-has GERD and occ. dysphagia--felt to be c/w esophgeal spasm. FIBROMYALGIA B12 DEFICIENCY ASTHMA MIGRAINE DIZZINESS ANXIETY AND DEPRESSION ANTIPHOSPHOLIPID SYNDROME wi th a previous DVT-previously on Coumadin-sees Dr. Samaniego Denies NM,DM,renal disease Neg. colonoscopy in 11/2007 and in 11/1999 Constipation Mini-stroke in 2000 Colonoscopy in 03/2013-1 small tubular ad enoma Surgical History Surgery Date(Month/Year) cholecystectomy hysterectomy left elbow surgery back surgery
--- OUTSIDE RECORDS SUMMARY | 2025-05-17 06:30 | XMS_ITS | Encounter Summary ---
Author Organization [employer] Address [address] [place] [address] Care Team Providers Care Talent Acquisition Project Manager Name Role Phone Ayala Mckay MD Primary Care Provider + Encounter Details Date Type Department Care Team (Late st Contact Info) Description 08/14/2023 Abstract [facility] [address] [place] [address] [phone] Ayala Mckay MD [address] [place] [address] Social History Tobacco Use Types Packs/Day Years [...] Info) Description 06/10/2025 9:00 AM EST Nutrition [facility] DI[facility]ETES/NUTRITION [address] [place] [phone] [place], [place] [phone] 07/01/2025 9:15 AM EST Office Visit [facility] [address] [place] [phone] Ayala Mckay MD 230 [place] [address] documented as of this encounter Visit Diagnoses Not on filedocumented in this encounter Care Teams Talent Acquisition Project Manager Relationship Specialty Start Date End Date Ayala Mckay MD [address] [place] [address] [phone] PCP - General Family Medicine 08/08/16 Allison Almanza Color SpecialistPartnership Manager 01/08/24 documented as of this encounter
--- OUTSIDE RECORDS SUMMARY | 2025-05-17 06:30 | XMS_ITS | Encounter Summary ---
Author Organization [employer] Address [address] [place] [address] [address] Care Team Providers Care Naval Marine Engineer Name Role Phone Ayala Mckay MD Primary Care Provider + Reason for Visit * Reason Comments Med Change Request Encounter Details Date Type Department Care Team (Late Contact Info) Description 10/02/2022 Refill [facility] CHC MED & PEDS [address] [place], [place] [phone] Ayala Mckay MD [address] [place], [place] [phone] Anxiety Social History Tobacco Use Types Packs/Day [...] Info) Description 06/10/2025 9:00 AM EST Nutrition [facility] DIABETES/NUTRITION 230 [place], [place] [phone] [address]issa Z[address] [place] [address] 07/01/2025 9:15 AM EST Office Visit [facility] MEDICINE [address] [place], [place] [phone] Ayala Mckay MD [address] [place] [address] documented as of this encounter Visit Diagnoses Diagnosis Anxiety Anxiety state, unspecified documented in this encounter Care Teams Naval Marine Engineer Relationship Specialty Start Date End Date Ayala Mckay MD 230 [place] [address] PCP - General Family Medicine 08/08/16 Allison Almanza Coreroom Foundry LaborerSafety Advisor 01/08/24 documented as of this encounter
--- OUTSIDE RECORDS SUMMARY | 2025-05-17 06:30 | XMS_ITS | Encounter Summary ---
Author Organization [employer] Address [address] [facility] 7 [place] [address] Care Team Providers Care Document Preparation Specialist Name Role Phone Ayala Mckay MD Primary Care Provider + Reason for Visit * Reason Onset Date Comments Med Refill 04/29/2024 Encounter Details Date Type Department Care Team (Late st Contact Info) Description 04/29/2024 Refill [facility] CHC MED & PEDS [address] [place] [address] Ayala Mckay MD [address] [place] [address] Social History Tobacco Use Types Packs/Day Years [...] Info) Description 06/10/2025 9:00 AM EST Nutrition [facility] DIABETES/NUTRITION 230 [place] [address] [place] [address] 07/01/2025 9:15 AM EST Office Visit [facility] MEDICINE 230 [place] [address] Ayala Mckay MD [address] [place] [address] documented as of this encounter Visit Diagnoses Not on filedocumented in this encounter Additional Health Concerns Assessment Noted Time PHQ-9 Depression Total Score: 20 024 12:08 PM EDT documented as of this encounter Care Teams Document Preparation Specialist Relationship Specialty Start Date End Date Ayala Mckay MD [address] [place] [address] PCP - General Family Medicine 08/08/16 Allison Almanza Ice Guard TesterPanelboard Assembler 01/08/24 documented as of this encounter
--- OUTSIDE RECORDS SUMMARY | 2025-05-17 06:30 | XMS_ITS | Encounter Summary ---
Author Organization [email or web address] Address 75 [facility] 7 [place] [address] Care Team Providers Care Environmental Engineering Manager Name Role Phone Ayala Mckay MD Primary Care Provider + Reason for Visit * Reason Onset Date Comments Med Refill 01/04/2025 Encounter Details Date Type Department Care Team (Late st Contact Info) Description 01/04/2025 Refill [facility] MEDICINE [address] [place] [address] Ayala Mckay MD [address] [place] [address] Social History Tobacco Use Types Packs/Day Years [...] Info) Description 06/10/2025 9:00 AM EST Nutrition [facility] DIABETES/NUTRITION [address] [place] [address] [address] Zamarripa, RD [address] [place] [address] 07/01/2025 9:15 AM EST Office Visit [facility] MEDICINE [address] [place] [address] Ayala Mckay MD [address] [place] [address] documented as of this encounter Visit Diagnoses Not on filedocumented in this encounter Additional Health Concerns Assessment Noted Time PHQ-9 Depression Total Score: 20 024 12:08 PM EDT documented as of this encounter Care Teams Environmental Engineering Manager Relationship Specialty Start Date End Date Ayala Mckay MD [address] [place] [phone] PCP - General Family Medicine 08/08/16 Allison Almanza BiometricianNatural Gas Inspector 01/08/24 documented as of this encounter
--- OUTSIDE RECORDS SUMMARY | 2025-05-17 06:30 | XMS_ITS | Encounter Summary ---
Author Organization [employer] Address [address] [place] [address], [place] [address] Care Team Providers Care Equine Internship Name Role Phone Ayala Mckay MD Primary Care Provider + Reason for Visit * Reason Comments Med Refill Encounter Details Date Type Department Care Team (Late st Contact Info) Description 07/31/2023 Refill [facility] CHC MED & PEDS [address] [place], [place] [phone] Ayala Mckay MD [address] [place], [place] [phone] Vitamin D deficiency Social History Tobacco Use [...] Info) Description 06/10/2025 9:00 AM EST Nutrition [facility] DIABETES/NUTRITION [address] [place] [phone] [place] [address] 07/01/2025 9:15 AM EST Office Visit [facility] MEDICINE [address] [place] [address] [phone] Ayala Mckay MD [address] [place], [place] [phone] documented as of this encounter Visit Diagnoses Diagnosis Vitamin D deficiency documented in this encounter Care Teams Equine Internship Relationship Specialty Start Date End Date Ayala Mckay MD [address] [place], [place] [phone] PCP - General Family Medicine 08/08/16 Allison Almanza Test Preparation TutorDirector Athletic 01/08/24 documented as of this encounter
--- OUTSIDE RECORDS SUMMARY | 2025-05-17 06:30 | XMS_ITS | Encounter Summary ---
Author Organization [employer] Address [address] [facility] 7 [place] [address] Care Team Providers Care Correctional Sergeant Name Role Phone Ayala Mckay MD Primary Care Provider + Reason for Visit * Reason Onset Date Comments Med Refill 12/02/2024 Encounter Details Date Type Department Care Team (Late st Contact Info) Description 12/02/2024 Refill [facility] MEDICINE [address] [place] [address] Ayala Mckay MD 230 [place] [address] Social History Tobacco Use Types Packs/Day Years [...] Info) Description 06/10/2025 9:00 AM EST Nutrition [facility] DIABETES/NUTRITION [address] [place] [address] Mellissa Zamarripa, RD [address] [place] [address] 07/01/2025 9:15 AM EST Office Visit [facility] MEDICINE [address] [place] [address] Ayala Mckay MD [address] [place] [phone] documented as of this encounter Visit Diagnoses Not on filedocumented in this encounter Additional Health Concerns Assessment Noted Time PHQ-9 Depression Total Score: 20 024 12:08 PM EDT documented as of this encounter Care Teams Correctional Sergeant Relationship Specialty Start Date End Date Ayala Mckay MD [address] [place] [phone] PCP - General Family Medicine 08/08/16 Allison Almanza Armored Vehicle OfficerMain Galley Scullion 01/08/24 documented as of this encounter
--- OUTSIDE RECORDS SUMMARY | 2025-05-17 06:30 | XMS_ITS | Encounter Summary ---
Author Organization [facility] Address [address] [place] [address], [place] [address] Care Team Providers Care Depositing Machine Operator Name Role Phone Ayala Mckay MD Primary Care Provider + Encounter Details Date Type Department Care Team (Late st Contact Info) Description 10/31/[address] [facility] CHC MED & PEDS [address] [place], [place] [phone] Felisa Zapata LPN Social History Tobacco Use [...] Info) Description 06/10/2025 9:00 AM EST Nutrition [facility] DIABETES/NUTRITION [address] [place] [address] [place] [address] 07/01/2025 9:15 AM EST Office Visit [facility] MEDICINE [address] [place] [address] Ayala Mckay MD 230 [place] [address] documented as of this encounter Visit Diagnoses Not on filedocumented in this encounter Care Teams Depositing Machine Operator Relationship Specialty Start Date End Date Ayala Mckay MD [address] [place] [address] PCP - General Family Medicine 08/08/16 Allison Almanza Motor Vehicle Operator Road SupervisorStreet Contractor 01/08/24 documented as of this encounter
--- OUTSIDE RECORDS SUMMARY | 2025-05-17 06:30 | XMS_ITS | Encounter Summary ---
Author Organization [employer] Address 75 [facility] 7 [place] [address] Care Team Providers Care Manager Sales Training Name Role Phone Ayala Mckay MD Primary Care Provider + Reason for Visit * Reason Onset Date Comments Med Refill 12/31/2024 Encounter Details Date Type Department Care Team (Late st Contact Info) Description 12/31/2024 Refill [facility] MEDICINE [address] [place] [address] Ayala Mckay MD 230 [place] [address] Social History Tobacco Use Types Packs/Day Years [...] Info) Description 06/10/2025 9:00 AM EST Nutrition [facility] DIABETES/NUTRITION [address] [place] [address] Mellissa Zamarripa, RD 230 [place] [address] 07/01/2025 9:15 AM EST Office Visit [facility] MEDICINE [address] [place] [address] Ayala Mckay MD [address] [place] [address] documented as of this encounter Visit Diagnoses Not on filedocumented in this encounter Additional Health Concerns Assessment Noted Time PHQ-9 Depression Total Score: 20 024 12:08 PM EDT documented as of this encounter Care Teams Manager Sales Training Relationship Specialty Start Date End Date Ayala Mckay MD [address] [place] [phone] PCP - General Family Medicine 08/08/16 Allison Almanza Cnc Maintenance MechanicNurse Companion 01/08/24 documented as of this encounter
--- OUTSIDE RECORDS SUMMARY | 2025-05-17 06:30 | XMS_ITS | Encounter Summary ---
Author Organization [employer] Address 75 [facility] 7 [place] [address] Care Team Providers Care Hardboard Factory Worker Name Role Phone Ayala Mckay MD Primary Care Provider + Reason for Visit * Reason Comments Med Refill Encounter Details Date Type Department Care Team (Late st Contact Info) Description 09/26/2023 Refill [facility] WALK[facility]IN [facility] [address] [place] [address] Wilfrid [place] MD 230 [place] [address] Vitamin D deficiency Social History Tobacco Use [...] 06/10/2025 9:00 AM EST Nutrition [facility] DIABETES/NUTRITION 230 [place] [address] [place] [address] 07/01/2025 9:15 AM EST Office Visit [facility] MEDICINE 230 [place] [address] Ayala Mckya MD 230 [place] [address] documented as of this encounter Visit Diagnoses Diagnosis Vitamin D deficiency documented in this encounter Care Teams Hardboard Factory Worker Relationship Specialty Start Date End Date Ayala Mckay MD 230 [place] [address] PCP - General Family Medicine 08/08/16 Allison Almanza Technical Writing Lead/MgrHardboard Factory Worker 01/08/24 documented as of this encounter
--- OUTSIDE RECORDS SUMMARY | 2025-05-17 06:30 | XMS_ITS | Encounter Summary ---
Author Organization [employer] Address [address] [place] [address] [place] [address] Care Team Providers Care Nurse Special Name Role Phone Ayala Mckay MD Primary Care Provider + Reason for Visit * Reason Comments Med Change Request Encounter Details Date Type Department Care Team (Late Contact Info) Description 07/03/2023 Refill [facility] CHC MED & PEDS [address] [place], [place] [phone] Ayala Mckay MD 230 [place], [place] [phone] Social History Tobacco Use Types Packs/Day Years [...] Info) Description 06/10/2025 9:00 AM EST Nutrition [facility] DIABETES/NUTRITION [address] [place] [phone] 230 [place] [address] 07/01/2025 9:15 AM EST Office Visit [facility] MEDICINE [address] [place] [address] [phone] Ayala Mckay MD 230 [place] [address] documented as of this encounter Visit Diagnoses Not on filedocumented in this encounter Care Teams Nurse Special Relationship Specialty Start Date End Date Ayala Mckay MD 230 [place], [place] [phone] PCP - General Family Medicine 08/08/16 Allison Almanza Triage TechnicianShim Plug Cutter 01/08/24 documented as of this encounter
--- OUTSIDE RECORDS SUMMARY | 2025-05-17 06:30 | XMS_ITS | Encounter Summary ---
Author Organization [employer] Address 75 [facility] 7 [place] [address] Care Team Providers Care Laborer Chemical Processing Name Role Phone Ayala Mckay MD Primary Care Provider + Reason for Visit * Reason Comments Med Change Request Encounter Details Date Type Department Care Team ([facility] Contact Info) Description 08/19/2024 Refill [facility] MEDICINE 230 [place] [address] Ayala Mckay MD 230 [place] [address] Social History Tobacco Use Types Packs/Day Years [...] Info) Description 06/10/2025 9:00 AM EST Nutrition [facility] DIABETES/NUTRITION 230 [place] [address] 230 [place] [address] 07/01/2025 9:15 AM EST Office Visit [facility] MEDICINE 230 [place] [address] Ayala Mckay MD 230 [place] [address] documented as of this encounter Visit Diagnoses Not on filedocumented in this encounter Additional Health Concerns Assessment Noted Time PHQ-9 Depression Total Score: 20 024 12:08 PM EDT documented as of this encounter Care Teams Laborer Chemical Processing Relationship Specialty Start Date End Date Ayala Mckay MD 230 [place] [address] PCP - General Family Medicine 08/08/16 Allison Almanza Demand PlannerPlate Mounter 01/08/24 documented as of this encounter
--- OUTSIDE RECORDS SUMMARY | 2025-05-17 06:30 | XMS_ITS | Encounter Summary ---
Author Organization [employer] Address [address] [place] [address] 7[place] [address] Care Team Providers Care Chrome Tanning Drum Operator Name Role Phone Ayala Mckay MD Primary Care Provider + Reason for Visit * Reason Comments Med Change Request Encounter Details Date Type Department Care Team (Late Contact Info) Description 09/01/2023 Refill [facility] CHC MED & PEDS [address] [place], [place] [phone] Ayala Mckay MD 230 [place], [place] [phone] Social History Tobacco Use Types Packs/Day Years [...] Info) Description 06/10/2025 9:00 AM EST Nutrition [facility] DIABETES/NUTRITION [address] [place] [phone] 230 [place], [place] [phone] 07/01/2025 9:15 AM EST Office Visit [facility] MEDICINE [address] [place] [address] [phone] Ayala Mckay MD 230 [place] [address] documented as of this encounter Visit Diagnoses Not on filedocumented in this encounter Care Teams Chrome Tanning Drum Operator Relationship Specialty Start Date End Date Ayala Mckay MD 230 [place] [address] PCP - General Family Medicine 08/08/16 Allison Almanza Reading TutorPlant Technician 01/08/24 documented as of this encounter
--- OUTSIDE RECORDS SUMMARY | 2025-05-17 06:30 | XMS_ITS | Encounter Summary ---
Author Organization [employer] Address [address] [place] [address] 7[place] [address] Care Team Providers Care Corporate Safety Director Name Role Phone Ayala Mckay MD Primary Care Provider + Encounter Details Date Type Department Care Team (Late st Contact Info) Description 04/09/2023 Orders Only [facility] CHC MED & PEDS [address] [place], [place] [phone] Felisa Zapata LPN Social History Tobacco Use [...] Info) Description 06/10/2025 9:00 AM EST Nutrition [facility] DIABETES/NUTRITION [address] [place] [address] [place] [address] 07/01/2025 9:15 AM EST Office Visit [facility] MEDICINE [address] [place] [address] Ayala Mckay MD 230 [place] [address] documented as of this encounter Visit Diagnoses Not on filedocumented in this encounter Care Teams Corporate Safety Director Relationship Specialty Start Date End Date Ayala Mckay MD [address] [place] [address] PCP - General Family Medicine 08/08/16 Allison Almanza Dump GraderPrestidigitator 01/08/24 documented as of this encounter
--- OUTSIDE RECORDS SUMMARY | 2025-05-17 06:30 | XMS_ITS | Encounter Summary ---
Author Organization [employer] Address 75 [facility] 7 [place] [address] Care Team Providers Care Investment Accountant Name Role Phone Ayala Mckay MD Primary Care Provider + Reason for Visit * Reason Onset Date Comments Med Refill 01/14/2025 Encounter Details Date Type Department Care Team (Late st Contact Info) Description 01/14/2025 Refill [facility] MEDICINE 230 [place] [address] Ayala Mckay MD 230 [place] [address] Social History Tobacco Use Types Packs/Day Years [...] Info) Description 06/10/2025 9:00 AM EST Nutrition [facility] DIABETES/NUTRITION [address] [place] [address] Mellissa Zamarripa, RD 230 [place] [address] 07/01/2025 9:15 AM EST Office Visit [facility] MEDICINE [address] [place] [address] Ayala Mckay MD [address] [place] [address] documented as of this encounter Visit Diagnoses Not on filedocumented in this encounter Additional Health Concerns Assessment Noted Time PHQ-9 Depression Total Score: 20 024 12:08 PM EDT documented as of this encounter Care Teams Investment Accountant Relationship Specialty Start Date End Date Ayala Mckay MD [address] [place] [address] PCP - General Family Medicine 08/08/16 Allison Almanza Computer Systems Software EngineerAssistant Guest Services Manager 01/08/24 documented as of this encounter
--- OUTSIDE RECORDS SUMMARY | 2025-05-17 06:30 | XMS_ITS | Encounter Summary ---
Author Organization [employer] Address 75 [facility] 7t [place] [address] Care Team Providers Care Cath Lab Technologist Name Role Phone Ayala Mckay MD Primary Care Provider + Reason for Visit * Reason Comments Med Refill Encounter Details Date Type Department Care Team ([facility] st Contact Info) Description 02/12/2024 Refill [facility]ALK[facility]IN [facility] 230 [place] [address] Wilfrid [place] MD 230 [place] [address] Social History Tobacco Use Types Packs/Day Years [...] is your housing situation today? I have yaemlkaleb chen 11/07/[address] you [...] Info) Description 06/10/2025 9:00 AM EST Nutrition [facility] DIABETES/NUTRITION 230 [place] [address] 230 [place] [address] 07/01/2025 9:15 AM EST Office Visit [facility] MEDICINE 230 [place] [address] Ayala Mckay MD 230 [place] [address] documented as of this encounter Visit Diagnoses Not on filedocumented in this encounter Additional Health Concerns Assessment Noted Time PHQ-9 Depression Total Score: 20 024 12:08 PM EDT documented as of this encounter Care Teams Cath Lab Technologist Relationship Specialty Start Date End Date Ayala Mckay MD 230 [place], [place] [phone] PCP - General Family Medicine 08/08/16 Allison Almanza Medical Policy SpecialistPellet Press Operator 01/08/24 documented as of this encounter
--- OUTSIDE RECORDS SUMMARY | 2025-05-17 06:31 | XMS_ITS | Encounter Summary ---
Author Organization [employer] Address 75 [facility] 7 [place] [address] Care Team Providers Care Hospice Consultant Name Role Phone Ayala Mckay MD Primary Care Provider + Reason for Visit * Reason Comments Med Refill Encounter Details Date Type Department Care Team ([facility] st Contact Info) Description 09/27/2024 Refill [facility] MEDICINE 230 [place] [address] Ayala Mckay MD 230 [place] [address] Mild intermittent asthma without complication Social History [...] 06/10/2025 9:00 AM EST Nutrition [facility] DIABETES/NUTRITION 230 [place] [address] Mellissa Zamarripa, ROSIO 230 [place] [address] 07/01/2025 9:15 AM EST Office Visit [facility] MEDICINE 230 [place] [address] Ayala Mckay MD [address] [place] [address] documented as of this encounter Visit Diagnoses Diagnosis Mild intermittent asthma without complication documented in this encounter Additional Health Concerns Assessment Noted Time PHQ-9 Depression Total Score: 20 024 12:08 PM EDT documented as of this encounter Care Teams Hospice Consultant Relationship Specialty Start Date End Date Ayala Mckay MD [address] [place] [address] PCP - General Family Medicine 08/08/16 Allison Almanza Decorating InstructorCommissioning Agent 01/08/24 documented as of this encounter
--- OUTSIDE RECORDS SUMMARY | 2025-05-17 06:31 | XMS_ITS | Clinical Summary ---
Author Organization [employer] Address [address] [place] [address] Care Team Providers Care Prover Name Role Phone Lj Connolly MD Primary Care Provider + Allergies Active [...] A ORAL AL ACOSTARSE 10/24/19 23 Active fluticasone furoate (Arnuity Ellipta) 200 MCG/ACT [...] DROWSINESS. 180 tablet 1 12/17/19 25 Active naproxen (Naprosyn) 500 MG tabletIndication [...] DAY 90 tablet 3 04/08/20 25 Active ergocalciferol (Vitamin D2) 1.25 MG (89577 UT) capsuleIndicatio ns:Vitamin D deficiency TAKE 1 CAPSULE BY MOUTH EVERY WEEK 12 capsule 04/19/20 25 Active diphenhydrAMINE (Banophen) 25 MG capsuleIndicatio ns:Allergy, subsequent encounter TAKE 1-2 CAPSULES BY MOUTH AT BEDTIME FOR INSOMNIA 60 capsule 3 04/22/20 25 Active diphenhydrAMINE (Banophen) 25 MG capsuleIndicatio ns:Allergy, subsequent encounter TAKE 1-2 CAPSULES BY MOUTH AT BEDTIME FOR INSOMNIA 60 capsule 3 06/01/20 24 025 Discontinued ergocalciferol (Vitamin D2) 1.25 MG (86298 UT) capsuleIndicatio ns:Vitamin D deficiency TAKE 1 CAPSULE BY MOUTH EVERY WEEK 12 capsule 01/25/20 25 025 Discontinued Active Problems Problem Noted [...] life style modifications, diet and referral to water resource specialist. - Recommended to decrease soda and [...] WRITTEN ON 06/25/2024 3:05 PM BY LJ CONNOLLY MD BMI is slowly improving with life style modifications + Wegovy, will increase to 1mg/w and fu in 3m Recommended to decrease soda and sugary beverage [...] pain clinic and PT, referred by Dr.Bass viera m Incontinence of feces 09/18/2023 Cervical disc disorder [...] 05/19/2012 Vitamin B 12 deficiency 03/09/2012 06/06/20 Assessment & Plan (12/01/2024 8:07 PM EDT): [...] life style modifications, diet and referral to water resource specialist, she declined. Recommended to decrease soda and sugary beverage consumption, increase protein intake with meals (at least 1 portion of protein with each meal) to assist with satiety, increase dietary fiber Recommended at least 150 min/week of moderate intensity exercise. Assessment & Plan (09/19/2023 10:56 AM EST): Discussed re weight reduction options including exercise, life style modifications, diet, referral to water resource specialist. Discussed re lower calorie intake, increase dietary fiber Will refer to lehr attendant Diabetes mellitus 06/06/2023 06/06/2023 06/06/2023 Moderate asthma 06/06/2023 06/06/2023 06/06/2023 Dizziness 06/22/2012 06/25/2024 Encounters Date Type Department Care Team Description 05/16/2025 Refill [facility] MEDICINE [address] [place] [address] Lj Connolly MD Vitamin D deficiency 05/04/2025 Telephone [facility] MEDICINE [address] [place] [address] Lj Connolly MD Hold medication 04/21/2025 Refill [facility] MEDICINE [address] [place] [address] Lj Connolly MD Allergy, subsequent encounter 04/19/2025 Refill [facility] MEDICINE [address] [place] [address] DaleStephanie, RETURNED CASE INSPECTOR Vitamin D deficiency 04/18/2025 Telephone [facility] MEDICINE [address] [place] [address] Nutrition referral 04/07/2025 Refill [facility] CHC MED & PEDS [address] [place] [address] Lj Connolly MD 03/24/2025 Refill [facility] MEDICINE [address] [place] [address] Lj Connolly MD 03/17/2025 Refill [facility] MEDICINE [address] [place] [address] Lj Connolly MD 03/13/2025 Refill [facility] MEDICINE [address] [place] [address] Lj Connolly MD 03/02/2025 9:30 AM EDT Office Visit [facility] OPTOMETRY [address] [place] [address] Rao, Jael, OD Hyperopia of both eyes (Primary Dx) 03/02/2025 Travel 03/01/2025 Refill [facility] MEDICINE [address] [place] [address] Lj Connolly MD Interstitial cystitis (chronic) with hematuria 02/23/2025 Results Follow-Up [facility] MEDICINE [address] [place] [address] Lj Connolly MD XR Hip 2 or 3 Views Left, XR Lumbar Spine Complete 4+ Views 02/22/2025 9:45 AM EDT Office Visit [facility] MEDICINE [address] [place] [address] Lj Connolly MD Overweight (Primary Dx); Stenosis of intervertebral foramina; Iliopsoas bursitis of left hip; Moderate persistent asthma without complication; IFG (impaired fasting glucose); Mild intermittent asthma without complication 02/22/2025 Travel 02/18/2025 Refill [facility] MEDICINE [address] [place] [address] Lj Connolly MD from Last 3 Months Immunizations Immunization [...] your housing situation today? I have yamel sing 11/16/[address] you li [...] 02/22/2025 8:55 AM EDT Plan of Treatment Upcoming Encounters Date Type Department Care Team (Late st Contact Info) Description 06/10/2025 9:00 AM EST Nutrition [facility] DIABETES/NUTRITION [address] [place] [address] Mellissa Zamarripa, ROSIO [address] [place], [place] [phone] 07/01/2025 9:15 AM EST Office Visit [facility] MEDICINE [address] [place], [place] [phone] Lj Connolly MD [address] [place], [place] [phone] Health Maintenance Due Date Last Done Comments [...] Procedure Name Priority Date/Time Associated Diagnosis Comments AMB REFERRAL TO PAIN MEDICINE Routine 05/06/2025 Stenosis of intervertebral foramina Iliopsoas bursitis of left hip XR HIP 2 OR 3 VIEWS LEFT Routine 02/22/2025 9:28 AM EDT Stenosis of intervertebral foramina Iliopsoas bursitis of left hip XR LUMBAR SPINE COMPLETE 4+ VIEWS Routine 02/22/2025 9:18 AM EDT Stenosis of intervertebral foramina Iliopsoas bursitis of left hip LIPID PANEL WITH REFLEX TO DIRECT LDL Routine 01/20/2025 9:52 AM EDT Overweight Primary hypertension MAMMOGRAM GENERIC Routine 01/02/2021 12: 10 PM EDT HM COLONOSCOPY Routine 02/15/2019 5:53 AM EDT from Last 3 Months or Most Recently Relevant to Health Maintenance Results * Referral to Pain Medicine (05/06/2025) us Lj Connolly MD OUTPATIENT REFERRAL PAVITHRA ARMAS Final Result * XR Hip 2 or 3 Views Left (02/22/2025 9:28 AM EDT) Anatomical Region Laterality Modality Lower Extremities, Hip Left Radiograp hic Imaging 02/22/2025 9:28 AM EDT Narrative 02/22/2025 11:22 AM EDT [address] XRay Report Signed Patient: Annabella Gillespie I MR#: [id number] 3 : 1965 Acct:[id number] Age/Sex: 59 / F ADM Date: 02/22/25 [facility] Att[facility] Dr: Lj Connolly MD Ordering Physician: Lj Connolly MD Date of Service: 02/22/25 Procedure(s): XR hip LT min 2V Accession Number(s): [id number] cc: Lj Connolly MD EXAMINATION: XR HIP, LEFT CLINICAL INFORMATION: [...] Adonis Bedoya MD 02/22/2025 11:20 AM EDT Dictated By: Adonis Bedoya MD Signed By: <Electronically signed by Adonis Bedoya MD in OV> 02/22/25 1120 DD/ 0928 TD/TT: 02/22/25 0930 Waiter/Waitress Dining Car: Procedure Note Donotuseinterpreter, Image - 02/22/[address] [address] XRay Report Signed Patient: Annabella Gillespie IMR#: [id number] 3 : 1965Acct:[id number] Age/Sex: 59 / FADM Date: 02/22/25 Loc: HO.CX Attending Dr: Lj Connolly MD Ordering Physician: Lj Connolly MD Date of Service: 02/22/25 Procedure(s): XR hip LT min 2V Accession Number(s): [id number] cc: Lj Connolly MD EXAMINATION: XR HIP, LEFT CLINICAL INFORMATION: [...] in OV> 02/22/25 1120 DD/ 7 TD/TT: 02/22/25 0930 Waiter/Waitress Dining Car: Lj Connolly MD IMG XR PROCEDURES Edited Result - Final * XR Lumbar Spine Complete 4+ Views (02/22/2025 9:18 AM EDT) Anatomical Region Laterality Modality Spine, L-spine Radiographic Marisa ging 02/22/2025 9:18 AM EDT Narrative 02/22/2025 11:28 [place] [address] XRay Report Signed Patient: Annabella Gillespie I MR#: [id number] 3 : 1965 Acct:[id number] Age/Sex: 59 / F ADM Date: 02/22/25 Loc: HO.HHCX Attending Dr: Lj Connolly MD Ordering Physician: Lj Connolly MD Date of Service: 02/22/25 Procedure(s): XR lumbar spine 4V min Accession Number(s): [id number] cc: Lj Connolly MD Examination: 5 view lumbar spine x-ray. [...] 02/22/25 1125 DD/ 0918 TD/TT: 02/22/25 0930 Waiter/Waitress Dining Car: Procedure Note Donotuseinterpreter, Image - 02/22/[address] [address] XRay Report Signed Patient: Annabella Gillespie IMR#: [id number] 3 : 1965Acct:[id number] Age/Sex: 59 / FADM Date: 02/22/25 Loc: HO.HHCX Attending Dr: Lj Connolly MD Ordering Physician: Lj Connolly MD Date of Service: 02/22/25 Procedure(s): XR lumbar spine 4V min Accession Number(s): [id number] cc: Lj Connolly MD Examination: 5 view lumbar spine x-ray. [...] 02/22/25 1125 DD/ 0918 TD/TT: 02/22/25 0930 Waiter/Waitress Dining Car: Lj Connolly MD IMG XR PROCEDURES Edited Result - Final * (ABNORMAL) Lipid Panel with Reflex to Direct LDL (01/20/2025 9:52 AM EDT) Triglycerides 120 <150 mg/dL [facility] Comment:Desirable Triglyceri de: less than 150 mg/dLBorderline High Triglyceride 150-199 mg/dLHigh Triglyceride: 200-499 mg/dLVery High Triglyceride: greater than or equal to 5OO mg/dL Cholesterol 195 <200 mg/dL [facility] Comment:Desirable Cholestero l: less than 200 mg/dLBorderline High Cholesterol: 200-239 mg/dLHigh Cholesterol: greater than 239 mg/dL LDL Cholesterol Calculated 121(H) <100 mg/dL [facility] Comment:Desirable LDL: less than 100 mg/dLNear Optimal/Above Optimal LDL: 110- 129 mg/dLBorderline High LDL: 130-159 mg/dLHigh LDL: 160-189 mg/dLVery High LDL: greater than or equal to 190 mg/dL HDL Cholesterol 50 >40 mg/dL [facility] Comment:Desirable HDL: great er than 40 mg/dL Note: This HDL assay may give artificially low results in patients with liver disease. Blood 01/20/2025 9:52 AM EDT 01/20/2025 11:02 AM EDT Lj Connolly MD LAB BLOOD ORDERABLES Fin al Result [facility] [address] [place] [phone] * Mammography Report 1 (01/02/2021 12:10 PM EDT) Anatomical Region Laterality Modality Breast Bilateral Mammography 01/02/2021 12:1 0 PM EDT Narrative 01/03/2021 1:39 PM EDT Refer to the Notes tab for result details [facility] Procedure: Mammography Report 1 Procedure Note Provider, MD Celso - 10/13/2022 Refer to the Notes tab for result details [facility] Procedure: Mammography Report 1 Lj Connolly MD IMG BI PROCEDURES Final Result * Hm Colonoscopy (02/15/2019 5:53 AM EDT) Celso Provider HEALTH MAINTENANCE Final Result from Last 3 Months or Most Recently Relevant to Health Maintenance Insurance [facility] C3 Care Teams Prover Relationship Specialty Start Date End Date Lj Connolly MD [address] [place] [phone] PCP - General Family Medicine 08/08/16 Allison Almanza Hydro TechnicianRocket Motor Tester 01/08/24
--- OUTSIDE RECORDS SUMMARY | 2025-05-17 06:31 | XMS_ITS | Encounter Summary ---
Author Organization [employer] Address 75 [facility] 7 [place] [address] Care Team Providers Care Metal Hanging Helper Name Role Phone Ayala Mckay MD Primary Care Provider + Reason for Visit * Reason Comments Med Refill Encounter Details Date Type Department Care Team ([facility] st Contact Info) Description 05/16/2025 Refill [facility] MEDICINE [address] [place] [address] Ayala Mckay MD 230 [place] [address] Vitamin D deficiency Social History Tobacco Use [...] Info) Description 06/10/2025 9:00 AM EST Nutrition [facility] DIABETES/NUTRITION [address] [place] [address] Mellissa Zamarripa, RD 230 [place] [address] 07/01/2025 9:15 AM EST Office Visit [facility] MEDICINE [address] [place] [address] Ayala Mckay MD [address] [place] [address] documented as of this encounter Visit Diagnoses Diagnosis Vitamin D deficiency documented in this encounter Additional Health Concerns Assessment Noted Time PHQ-9 Depression Total Score: 10 025 9:29 AM EDT documented as of this encounter Care Teams Metal Hanging Helper Relationship Specialty Start Date End Date Ayala Mckay MD [address] [place] [address] PCP - General Family Medicine 08/08/16 Allison Almanza Sample Taker OperatorFinal Block Press Operator 01/08/24 documented as of this encounter
--- OUTSIDE RECORDS SUMMARY | 2025-05-17 06:31 | XMS_ITS | Encounter Summary ---
Author Organization [employer] Address [address] [place] [address] 7[place] [address] Care Team Providers Care Painter Airbrush Name Role Phone Ayala Mckay MD Primary Care Provider + Reason for Visit * Reason Comments Med Refill Encounter Details Date Type Department Care Team (Late st Contact Info) Description 04/03/2023 Refill [facility] CHC MED & PEDS [address] [place], [place] [phone] Ayala Mckay MD [address] [place], [place] [phone] Moderate persistent asthma without complication Social History [...] Upcoming Encounters Date Type Department Care Team ([facility] Contact Info) Description 06/10/2025 9:00 AM EST Nutrition [facility] DIABETES/NUTRITION [address] [place] [address] [place] [address] 07/01/2025 9:15 AM EST Office Visit [facility] MEDICINE [address] [place] [address] Ayala Mckay MD 230 [place], [place] [phone] documented as of this encounter Visit Diagnoses Diagnosis Moderate persistent asthma without complication documented in this encounter Care Teams Painter Airbrush Relationship Specialty Start Date End Date Ayala Mckay MD 230 [place], [place] [phone] PCP - General Family Medicine 08/08/16 Allison Almanza Licensed Insurance AgentMicrosoft Bi Consultant 01/08/24 documented as of this encounter
== END 2025-05-17 06:28 | disposition home or self-care (01) ==
LOC: CF 06:27
PROVIDERS: Visit Provider Anesthesiology
DX: M47.816 Spondylosis without myelopathy or radiculopathy, lumbar region (principal); M47.812 Spondylosis without myelopathy or radiculopathy, cervical region; M53.3 Sacrococcygeal disorders, not elsewhere classified; M46.1 Sacroiliitis, not elsewhere classified; Z79.899 Other long term (current) drug therapy
CPT/HCPCS: 27096; J2795; J3301; Q9967

== ENCOUNTER 2025-05-17 13:39 | Outpatient (AMB) | payer MEDICAID, SELFPAY ==
--- NOTE | 2025-05-17 13:49 | A.OFFVIS_ITS ---
Vital Signs 05/17/25 13:50 05/17/25 14:07 Height 5 ft 3 in Weight 158 lb BMI 28.0 BP 121/71 110/71 Blood Pressure Location Lt brachial Lt brachial Position Sitting Sitting Respiration 16 16 Pulse 101 H 97 Pulse Source Pulse Oximeter Pulse Oximeter Pulse Oximetry (%) 99 99 Oxygen Delivery Method Room Air Room Air Intake Visit Reasons: Left Therapeutic SIJ Injection Allergies Penicillins Allergy (Intermediate, Verified 04/14/25 10:27) RASH,SWELLING sulfamethoxazole (From Bactrim) Allergy (Intermediate, Verified 04/14/25 10:27) RASH,SWELLING trimethoprim (From Bactrim) Allergy (Intermediate, Verified 04/14/25 10:27) RASH,SWELLING PFSH Medical History CVA (cerebral vascular accident) Asthma Surgical History Hx of hysterectomy History of back surgery Hx of elbow surgery Hx of cystoscopy History of esophagogastroduodenoscopy (EGD) H/O colonoscopy Family History Mother Multiple myeloma Family/Other Breast cancer Social History (Updated 06/08/24 @ 11:12 by Rashel Marino) Household Members: Significant Other Patient Tobacco Use Status: Current everyday Tobacco user service: No Current occupational status: disabled Physical Exam Vital Signs: Last Vital Signs Pulse 97 05/17/25 14:07 Resp 16 05/17/25 14:07 BP 110/71 05/17/25 14:07 Pulse Ox 99 05/17/25 14:07 Oxygen Delivery Method Room Air 05/17/25 14:07 BMI result Body Mass Index 28.0 Assessment & Plan Assessment & Plan (1) Spondylosis of lumbar region without myelopathy or radiculopathy: Code(s): M47.816 - Spondylosis without myelopathy or radiculopathy, lumbar region Category: Medical (2) Sacroiliac joint pain: Code(s): M53.3 - Sacrococcygeal disorders, not elsewhere classified Category: Medical (3) Sacroiliitis: Code(s): M46.1 - Sacroiliitis, not elsewhere classified Category: Medical (4) Pain of both sacroiliac joints: Code(s): M53.3 - Sacrococcygeal disorders, not elsewhere classified Category: Medical (5) Cervicalgia: Code(s): M54.2 - Cervicalgia Category: Medical (6) Spondylosis, cervical: Code(s): M47.812 - Spondylosis without myelopathy or radiculopathy, cervical region Category: Medical Plan left therapeutic sacroiliac joint injection. Annabella is 59 years old female suffering from sacroiliitis and sacroiliac joint dysfunction of the left. She came today to the operating room to receive therapeutic left SI joint injection. Informed consent was thoroughly explained to the patient risks and benefits were explained. The patient was positioned prone on the operating table with pillow under her abdomen. The lower back and upper buttocks were prepped with ChloraPrep and draped with sterile self adhesive utility towels. C-arm was brought over the operating field and sq picture of the left sacroiliac joint was demonstrated on the screen. Tilting C- arm contralateral to the right the posterior silhouette of the sacroiliac joint was superimposed on anterior silhouette of the sacroiliac joint. Slightly medial to the projection of the joint to the skin injection of the local anesthetic lidocaine 2% mixed with ropivacaine 0.5% was performed. After that 22 gauge 3-1/2 inch needle was driven to were the point of interest in tunnel vision fashion. When tip of the needle entered posterior capsule of the joint injection of the contrast was performed delineating arthrogram. After that injection of the ropivacaine 0.5% 4 cc mixed with Kenalog 40 mg was performed. Upon completion of the injection needle was withdrawn sterile Band-Aid was applied. The patient tolerated the procedure well. Orders: Orders FL guidance in treatment room Today M46.1 - Sacroiliitis, not elsewhere classified Coding Level of Care Code Procedure Only Diagnoses Spondylosis of lumbar region without myelopathy or radiculopathy M47.816 Sacroiliac joint pain M53.3 Sacroiliitis M46.1 Pain of both sacroiliac joints M53.3 Cervicalgia M54.2 Spondylosis, cervical M47.812
[2025-05-17 13:50] VITALS: BP 121/71; PULSE 101; RESP 16; O2SAT 99; BMI 28.0
[2025-05-17 14:07] VITALS: BP 110/71; PULSE 97; RESP 16; O2SAT 99
--- OUTSIDE RECORDS SUMMARY | 2025-05-17 17:43 | XMS_ITS | Encounter Summary ---
Author Organization [employer] Address 75 [facility] 7 [place] [address] Care Team Providers Care Beehive Kiln Charcoal Burner Name Role Phone Ayala Mckay MD Primary Care Provider + Reason for Visit * Reason Onset Date Comments Med Refill 12/31/2024 Encounter Details Date Type Department Care Team (Late st Contact Info) Description 12/31/2024 Refill [facility] MEDICINE 230 [place] [address] Ayala Mckay MD 230 [place] [address] Social History Tobacco Use Types Packs/Day Years [...] 06/10/2025 9:00 AM EST Nutrition [facility] DIABETES/NUTRITION [address] [place] [address] Mellissa Zamarripa, RD 230 [place] [address] 07/01/2025 9:15 AM EST Office Visit [facility] MEDICINE [address] [place] [address] Ayala Mckay MD [address] [place] [address] documented as of this encounter Visit Diagnoses Not on filedocumented in this encounter Additional Health Concerns Assessment Noted Time PHQ-9 Depression Total Score: 20 024 12:08 PM EDT documented as of this encounter Care Teams Beehive Kiln Charcoal Burner Relationship Specialty Start Date End Date Ayala Mckay MD [address] [place] [address] PCP - General Family Medicine 08/08/16 Allison Almanza Sustainable Design CoordinatorRelay Adjuster 01/08/24 documented as of this encounter
--- OUTSIDE RECORDS SUMMARY | 2025-05-17 17:43 | XMS_ITS | Encounter Summary ---
Author Organization [employer] Address 75 [facility] 7 [place] [address] Care Team Providers Care Cigar Tobacco Processing Supervisor Name Role Phone Ayala Mckay MD Primary Care Provider + Reason for Visit * Reason Onset Date Comments Med Refill 01/04/2025 Encounter Details Date Type Department Care Team (Late st Contact Info) Description 01/04/2025 Refill [facility] MEDICINE 230 [place] [address] Ayala Mckay MD 230 [place] [address] Social History Tobacco Use Types Packs/Day Years [...] Info) Description 06/10/2025 9:00 AM EST Nutrition [facility] DIABETES/NUTRITION [address] [place] [address] Mellissa Zamarripa, RD 230 [place] [address] 07/01/2025 9:15 AM EST Office Visit [facility] MEDICINE [address] [place] [address] Ayala Mckay MD [address] [place] [address] documented as of this encounter Visit Diagnoses Not on filedocumented in this encounter Additional Health Concerns Assessment Noted Time PHQ-9 Depression Total Score: 20 024 12:08 PM EDT documented as of this encounter Care Teams Cigar Tobacco Processing Supervisor Relationship Specialty Start Date End Date Ayala Mckay MD [address] [place] [address] PCP - General Family Medicine 08/08/16 Allison Almanza GaggermanRelay Telegrapher 01/08/24 documented as of this encounter
--- OUTSIDE RECORDS SUMMARY | 2025-05-17 17:43 | XMS_ITS | Encounter Summary ---
Author Organization [employer] Address [address] [place] [address] 7[place] [address] Care Team Providers Care Chin Strap Maker Name Role Phone Ayala Mckay MD Primary Care Provider + Reason for Visit * Reason Comments Med Refill Encounter Details Date Type Department Care Team (Late st Contact Info) Description 07/31/[address] [facility] CHC MED & PEDS [address] [place], [place] [phone] Ayala Mckay MD 230 [place], [place] [phone] Vitamin D deficiency Social History Tobacco Use [...] Info) Description 06/10/2025 9:[address] [facility] DIABETES/NUTRITION [address] [place] [phone] 230 [place] [address] 07/01/2025 9:15 AM EST Office Visit [facility] MEDICINE [address] [place] [address] [phone] Ayala Mckay MD [address] [place], [place] [phone] documented as of this encounter Visit Diagnoses Diagnosis Vitamin D deficiency documented in this encounter Care Teams Chin Strap Maker Relationship Specialty Start Date End Date Ayala Mckay MD [address] [place], [place] [phone] PCP - General Family Medicine 08/08/16 Allison Almanza Cage OperatorCarton Stamper 01/08/24 documented as of this encounter
--- OUTSIDE RECORDS SUMMARY | 2025-05-17 17:43 | XMS_ITS | Encounter Summary ---
Author Organization [employer] Address 75 [facility] 7 [place] [address] Care Team Providers Care Concrete Saw Operator Name Role Phone Ayala Mckay MD Primary Care Provider + Reason for Visit * Reason Comments Med Change Request Encounter Details Date Type Department Care Team ([facility] Contact Info) Description 12/10/2024 Refill [facility] MEDICINE 230 [place] [address] Ayala Mckay MD 230 [place] [address] Social History Tobacco Use Types Packs/Day Years [...] Info) Description 06/10/2025 9:00 AM EST Nutrition [facility] DIABETES/NUTRITION [address] [place] [address] Mellissa Zamarripa, RD 230 [place] [address] 07/01/2025 9:15 AM EST Office Visit [facility] MEDICINE [address] [place] [address] Ayala Mckay MD [address] [place] [address] documented as of this encounter Visit Diagnoses Not on filedocumented in this encounter Additional Health Concerns Assessment Noted Time PHQ-9 Depression Total Score: 20 024 12:08 PM EDT documented as of this encounter Care Teams Concrete Saw Operator Relationship Specialty Start Date End Date Ayala Mckay MD [address] [place] [address] PCP - General Family Medicine 08/08/16 Allison Almanza Gradall OperatorSolar Electric/Photovoltaic Installer 01/08/24 documented as of this encounter
--- OUTSIDE RECORDS SUMMARY | 2025-05-17 17:43 | XMS_ITS | Encounter Summary ---
Author Organization [employer] Address 75 [facility] 7 [place] [address] Care Team Providers Care Inspector Agricultural Commodities Name Role Phone Aayla Mckay MD Primary Care Provider + Reason for Visit * Reason Onset Date Comments Med Refill 01/14/2025 Encounter Details Date Type Department Care Team (Late st Contact Info) Description 01/14/2025 Refill [facility] MEDICINE 230 [place] [address] Ayala Mckay MD 230 [place] [address] Social History Tobacco Use Types Packs/Day Years [...] 06/10/2025 9:00 AM EST Nutrition [facility] DIABETES/NUTRITION [address] [place] [address] Mellissa Zamarripa, RD 230 [place] [address] 07/01/2025 9:15 AM EST Office Visit [facility] MEDICINE [address] [place] [address] Ayala Mckay MD [address] [place] [address] documented as of this encounter Visit Diagnoses Not on filedocumented in this encounter Additional Health Concerns Assessment Noted Time PHQ-9 Depression Total Score: 20 024 12:08 PM EDT documented as of this encounter Care Teams Inspector Agricultural Commodities Relationship Specialty Start Date End Date Ayala Mckay MD [address] [place] [address] PCP - General Family Medicine 08/08/16 Allison Almanza Summer Child CaregiverOysterman 01/08/24 documented as of this encounter
--- OUTSIDE RECORDS SUMMARY | 2025-05-17 17:43 | XMS_ITS | Encounter Summary ---
Author Organization [employer] Address [address] [place] [address] 7[place], [place] [address] Care Team Providers Care Wood Shingle Roofer Name Role Phone Ayala Mckay MD Primary Care Provider + Encounter Details Date Type Department Care Team (Late st Contact Info) Description 04/09/2023 Orders Only [facility] CHC MED & PEDS [address] [place], [place] [phone] Felisa Zapata LPN Social History Tobacco Use [...] 9:00 AM EST Nutrition [facility] DIABETES/NUTRITION [address] [place] [address] [place] [address] 07/01/2025 9:15 AM EST Office Visit [facility] MEDICINE [address] [place] [address] Ayala Mckay MD 230 [place] [address] documented as of this encounter Visit Diagnoses Not on filedocumented in this encounter Care Teams Wood Shingle Roofer Relationship Specialty Start Date End Date Ayala Mckay MD [address] [place] [address] PCP - General Family Medicine 08/08/16 Allison Almanza Certified Real Estate AppraiserSkate Maker 01/08/24 documented as of this encounter
--- OUTSIDE RECORDS SUMMARY | 2025-05-17 17:43 | XMS_ITS | Encounter Summary ---
Author Organization [employer] Address [address] [place] [address] 7[place], [place] [address] Care Team Providers Care Professional Athlete Name Role Phone Ayala Mckay MD Primary Care Provider + Reason for Visit * Reason Comments Med Refill Encounter Details Date Type Department Care Team (Late st Contact Info) Description 04/03/2023 Refill [facility] CHC MED & PEDS [address] [place], [place] [phone] Ayala Mckay MD 230 [place], [place] [phone] Moderate persistent asthma without complication Social History [...] Upcoming Encounters Date Type Department Care Team ([facility] Contact Info) Description 06/10/2025 9:00 AM EST Nutrition [facility] DIABETES/NUTRITION [address] [place] [address] [place] [address] 07/01/2025 9:15 AM EST Office Visit [facility] MEDICINE [address] [place] [address] Ayala Mckay MD 230 [place], [place] [phone] documented as of this encounter Visit Diagnoses Diagnosis Moderate persistent asthma without complication documented in this encounter Care Teams Professional Athlete Relationship Specialty Start Date End Date Ayala Mckay MD 230 [place], [place] [phone] PCP - General Family Medicine 08/08/16 Allison Almanza Cinder Dump Crane OperatorProcurement Services Manager 01/08/24 documented as of this encounter
--- OUTSIDE RECORDS SUMMARY | 2025-05-17 17:43 | XMS_ITS | Encounter Summary ---
Author Organization [employer] Address [address] [place] [address] 7[place] [address] Care Team Providers Care Forensic Psychiatrist Name Role Phone Ayala Mckay MD Primary Care Provider + Reason for Visit * Reason Comments Med Change Request Encounter Details Date Type Department Care Team (Late Contact Info) Description 07/03/2023 Refill [facility] CHC MED & PEDS [address] [place], [place] [phone] Ayala Mckay MD 230 [place], [place] [phone] Social History Tobacco Use Types Packs/Day Years [...] 06/10/2025 9:00 AM EST Nutrition [facility] DIABETES/NUTRITION [address] [place] [phone] [place] [address] 07/01/2025 9:15 AM EST Office Visit [facility] MEDICINE [address] [place] [address] [phone] Ayala Mckay MD 230 [place] [address] documented as of this encounter Visit Diagnoses Not on filedocumented in this encounter Care Teams Forensic Psychiatrist Relationship Specialty Start Date End Date Ayala Mckay MD 230 [place], [place] [phone] PCP - General Family Medicine 08/08/16 Allison Almanza Pens And Pencils DipperMorning Babysitter 01/08/24 documented as of this encounter
--- OUTSIDE RECORDS SUMMARY | 2025-05-17 17:43 | XMS_ITS | Encounter Summary ---
Author Organization [employer] Address [address] [place] [address] 7[place] [address] Care Team Providers Care Risk Tech Name Role Phone Ayala Mckay MD Primary Care Provider + Reason for Visit * Reason Comments Med Change Request Encounter Details Date Type Department Care Team (Late Contact Info) Description 09/01/[address] [facility] CHC MED & PEDS [address] [place], [place] [phone] Ayala Mckay MD 230 [place], [place] [phone] Social History Tobacco Use Types Packs/Day Years [...] 06/10/2025 9:00 AM EST Nutrition [facility] DIABETES/NUTRITION [address] [place] [phone] [place], [place] [phone] 07/01/2025 9:15 AM EST Office Visit [facility] MEDICINE [address] [place] [address] [phone] Ayala Mckay MD 230 [place] [address] documented as of this encounter Visit Diagnoses Not on filedocumented in this encounter Care Teams Risk Tech Relationship Specialty Start Date End Date Ayala Mckay MD 230 [place] [address] PCP - General Family Medicine 08/08/16 Allison Almanza Moving WorkerAuthorization Rep 01/08/24 documented as of this encounter
--- OUTSIDE RECORDS SUMMARY | 2025-05-17 17:43 | XMS_ITS | Encounter Summary ---
Author Organization [employer] Address 75 [facility] 7 [place] [address] Care Team Providers Care Community Outreach Coordinator Name Role Phone Ayala Mckay MD Primary Care Provider + Reason for Visit * Reason Onset Date Comments Med Refill 12/02/2024 Encounter Details Date Type Department Care Team (Late st Contact Info) Description 12/02/2024 Refill [facility] MEDICINE [address] [place] [address] Ayala Mckay MD 230 [place] [address] Social History Tobacco Use Types Packs/Day Years [...] EST Nutrition [facility] DIABETES/NUTRITION [address] [place] [address] Mellissa Zamarripa, RD 230 [place] [address] 07/01/2025 9:15 AM EST Office Visit [facility] MEDICINE [address] [place] [address] Ayala Mckay MD [address] [place] [address] documented as of this encounter Visit Diagnoses Not on filedocumented in this encounter Additional Health Concerns Assessment Noted Time PHQ-9 Depression Total Score: 20 024 12:08 PM EDT documented as of this encounter Care Teams Community Outreach Coordinator Relationship Specialty Start Date End Date Ayala Mckay MD [address] [place] [phone] PCP - General Family Medicine 08/08/16 Allison Almanza Mailroom AssociateKennel Manager 01/08/24 documented as of this encounter
--- OUTSIDE RECORDS SUMMARY | 2025-05-17 17:43 | XMS_ITS | Encounter Summary ---
Author Organization [employer] Address 75 [facility] 7 [place] [address] Care Team Providers Care Web Site Administrator Name Role Phone Ayala Mckay MD Primary Care Provider + Reason for Visit * Reason Comments Med Refill Encounter Details Date Type Department Care Team ([facility] st Contact Info) Description 05/16/2025 Refill [facility] MEDICINE 230 [place] [address] Ayala Mckay MD 230 [place] [address] Vitamin D deficiency Social History Tobacco Use [...] Info) Description 06/10/2025 9:00 AM EST Nutrition [facility] DIABETES/NUTRITION [address] [place] [address] Mellissa Zamarripa, RD 230 [place] [address] 07/01/2025 9:15 AM EST Office Visit [facility] MEDICINE [address] [place] [address] Ayala Mckay MD [address] [place] [address] documented as of this encounter Visit Diagnoses Diagnosis Vitamin D deficiency documented in this encounter Additional Health Concerns Assessment Noted Time PHQ-9 Depression Total Score: 10 025 9:29 AM EDT documented as of this encounter Care Teams Web Site Administrator Relationship Specialty Start Date End Date Ayala Mckay MD [address] [place] [address] PCP - General Family Medicine 08/08/16 Allison Almanza Checking ClerkFlash Oven Operator 01/08/24 documented as of this encounter
--- OUTSIDE RECORDS SUMMARY | 2025-05-17 17:44 | XMS_ITS | Encounter Summary ---
Author Organization [employer] Address [address] [place] [address] 7[place], [place] [address] Care Team Providers Care Ambulance Paramedic Name Role Phone Ayala Mckay MD Primary Care Provider + Reason for Visit * Reason Comments Med Change Request Encounter Details Date Type Department Care Team (Late Contact Info) Description 10/02/2022 Refill [facility] CHC MED & PEDS [address] [place], [place] [phone] Ayala Mckay MD 230 [place], [place] [phone] Anxiety Social History Tobacco Use Types Packs/Day [...] Info) Description 06/10/2025 9:00 AM EST Nutrition [facility] DIABETES/NUTRITION 230 [place], [place] [phone] Mellissa Zamarripa RD [address] [place] [address] 07/01/2025 9:15 AM EST Office Visit [facility] MEDICINE 230 [place], [place] [phone] Ayala Mckay MD 230 [place] [address] documented as of this encounter Visit Diagnoses Diagnosis Anxiety Anxiety state, unspecified documented in this encounter Care Teams Ambulance Paramedic Relationship Specialty Start Date End Date Ayala Mckay MD 230 [place] [address] PCP - General Family Medicine 08/08/16 Allison Almanza Pharmacy TechnicianFood Order Delivery Runner 01/08/24 documented as of this encounter
--- OUTSIDE RECORDS SUMMARY | 2025-05-17 17:44 | XMS_ITS | Encounter Summary ---
Author Organization [employer] Address 75 [facility] 7t [place] [address] Care Team Providers Care Mail Processor Name Role Phone Ayala Mckay MD Primary Care Provider + Encounter Details Date Type Department Care Team ([facility] st Contact Info) Description 12/19/2023 Orders Only [facility] MEDICINE [address] [place], [place] [phone] Provider, MD Celso Social History Tobacco Use [...] Info) Description 06/10/2025 9:00 AM EST Nutrition [facility] DIABETES/NUTRITION [address] [place] [address] [place] [address] 07/01/2025 9:15 AM EST Office Visit [facility] MEDICINE 230 [place] [address] Ayala Mckay MD 230 [place] [address] documented as of this encounter Procedures Procedure [...] documented as of this encounter Care Teams Mail Processor Relationship Specialty Start Date End Date Ayala Mckay MD [address] [place] [address] PCP - General Family Medicine 08/08/16 Allison Almanza Communications ScientistEmergency Medicine Physician Assistant 01/08/24 documented as of this encounter
--- OUTSIDE RECORDS SUMMARY | 2025-05-17 17:44 | XMS_ITS | Encounter Summary ---
Author Organization [employer] Address 75 [facility] 7 [place] [address] Care Team Providers Care Hog Killer Name Role Phone Ayala Mckay MD Primary Care Provider + Reason for Visit * Reason Comments Med Refill Encounter Details Date Type Department Care Team ([facility] st Contact Info) Description 09/27/2024 Refill [facility] MEDICINE 230 [place] [address] Ayala Mckay MD 230 [place] [address] Mild intermittent asthma without complication Social History [...] Info) Description 06/10/2025 9:00 AM EST Nutrition [facility] DIABETES/NUTRITION 230 [place] [address] Mellissa Zamarripa, ROSIO 230 [place] [address] 07/01/2025 9:15 AM EST Office Visit [facility] MEDICINE [address] [place] [address] Ayala Mckay MD 230 [place] [address] documented as of this encounter Visit Diagnoses Diagnosis Mild intermittent asthma without complication documented in this encounter Additional Health Concerns Assessment Noted Time PHQ-9 Depression Total Score: 20 024 12:08 PM EDT documented as of this encounter Care Teams Hog Killer Relationship Specialty Start Date End Date Ayala Mckay MD 230 [place] [address] PCP - General Family Medicine 08/08/16 Allison Almanza PreboarderStaffing Executive 01/08/24 documented as of this encounter
--- OUTSIDE RECORDS SUMMARY | 2025-05-17 17:44 | XMS_ITS | Encounter Summary ---
Author Organization [employer] Address 75 [facility] 7 [place] [address] Care Team Providers Care Mold Inspector Name Role Phone Ayala Mckay MD Primary Care Provider + Reason for Visit * Reason Comments Med Change Request Encounter Details Date Type Department Care Team ([facility] Contact Info) Description 08/19/2024 Refill [facility] MEDICINE 230 [place] [address] Ayala Mckay MD 230 [place] [address] Social History Tobacco Use Types Packs/Day Years [...] 06/10/2025 9:00 AM EST Nutrition [facility] DIABETES/NUTRITION 230 [place] [address] 230 [place] [address] 07/01/2025 9:15 AM EST Office Visit [facility] MEDICINE 230 [place] [address] Ayala Mckay MD 230 [place] [address] documented as of this encounter Visit Diagnoses Not on filedocumented in this encounter Additional Health Concerns Assessment Noted Time PHQ-9 Depression Total Score: 20 024 12:08 PM EDT documented as of this encounter Care Teams Mold Inspector Relationship Specialty Start Date End Date Ayala Mckay MD 230 [place] [address] PCP - General Family Medicine 08/08/16 Allison Almanza Director Of Rehabilitation And WellnessIndustrial Relations Commissioner 01/08/24 documented as of this encounter
--- OUTSIDE RECORDS SUMMARY | 2025-05-17 17:44 | XMS_ITS | Encounter Summary ---
Author Organization [employer] Address 75 [facility] 7t [place] [address] Care Team Providers Care Stevedoring Supervisor Name Role Phone Ayala Mckay MD Primary Care Provider + Reason for Visit * Reason Comments Med Refill Encounter Details Date Type Department Care Team ([facility] st Contact Info) Description 02/12/[address] [facility] 230 [place] [address] Wilfrid Lancaster MD 230 [place] [address] Social History Tobacco Use Types Packs/Day Years [...] [facility] DIABETES/NUTRITION 230 [place] [address] 230 [place] [address] 07/01/2025 9:15 AM EST Office Visit [facility] MEDICINE 230 [place] [address] Ayala Mckay MD 230 [place] [address] documented as of this encounter Visit Diagnoses Not on filedocumented in this encounter Additional Health Concerns Assessment Noted Time PHQ-9 Depression Total Score: 20 024 12:08 PM EDT documented as of this encounter Care Teams Stevedoring Supervisor Relationship Specialty Start Date End Date Ayala Mckay MD 230 [place], [place] [phone] PCP - General Family Medicine 08/08/16 Allison Almanza Lithographer ApprenticeSonar Technician 01/08/24 documented as of this encounter
--- OUTSIDE RECORDS SUMMARY | 2025-05-17 17:44 | XMS_ITS | Encounter Summary ---
Author Organization [employer] Address [address] [place] [address] Care Team Providers Care Fundraising Consultant Name Role Phone Ayala Mckay MD Primary Care Provider + Encounter Details Date Type Department Care Team (Late st Contact Info) Description 08/14/2023 Abstract [facility] MEDICINE [address] [place] [address] [phone] Ayala Mckay MD 230 [place] [address] Social History Tobacco Use Types Packs/Day Years [...] Info) Description 06/10/2025 9:00 AM EST Nutrition [facility] DIABETES/NUTRITION [address] [place] [phone] 230 [place], [place] [phone] 07/01/2025 9:15 AM EST Office Visit [facility] MEDICINE [address] [place] [address] Ayala Mckay MD 230 [place] [address] documented as of this encounter Visit Diagnoses Not on filedocumented in this encounter Care Teams Fundraising Consultant Relationship Specialty Start Date End Date Ayala Mckay MD [address] [place] [address] [phone] PCP - General Family Medicine 08/08/16 Allison Almanza Event Decorator And DesignerOverage Shortage And Damage Clerk 01/08/24 documented as of this encounter
--- OUTSIDE RECORDS SUMMARY | 2025-05-17 17:44 | XMS_ITS | Encounter Summary ---
Author Organization [employer] Address 75 [facility] 7 [place] [address] Care Team Providers Care Spiral Spring Winder Name Role Phone Ayala Mckay MD Primary Care Provider + Reason for Visit * Reason Onset Date Comments Med Refill 03/24/2025 Encounter Details Date Type Department Care Team (Late st Contact Info) Description 03/24/2025 Refill [facility] MEDICINE 230 [place] [address] Ayala Mckay MD 230 [place] [address] Social History Tobacco Use Types Packs/Day Years [...] Info) Description 06/10/2025 9:00 AM EST Nutrition [facility] DIABETES/NUTRITION [address] [place] [address] [address] Z[address]ripa, RD 230 [place] [address] 07/01/2025 9:15 AM EST Office Visit [facility] MEDICINE [address] [place] [address] Ayala Mckay MD [address] [place] [address] documented as of this encounter Visit Diagnoses Not on filedocumented in this encounter Additional Health Concerns Assessment Noted Time PHQ-9 Depression Total Score: 10 025 9:29 AM EDT documented as of this encounter Care Teams Spiral Spring Winder Relationship Specialty Start Date End Date Ayala Mckay MD [address] [place] [address] PCP - General Family Medicine 08/08/16 Allison Almanza Legislative DirectorSalon Shampoo Assistant 01/08/24 documented as of this encounter
--- OUTSIDE RECORDS SUMMARY | 2025-05-17 17:44 | XMS_ITS | Encounter Summary ---
Author Organization [employer] Address 75 [facility] 7 [place] [address] Care Team Providers Care Boiler Tube Reamer Name Role Phone Ayala Mckay MD Primary Care Provider + Reason for Visit * Reason Onset Date Comments Med Refill 04/29/2024 Encounter Details Date Type Department Care Team (Late st Contact Info) Description 04/29/2024 Refill [facility] CHC MED & PEDS [address] [place] [address] Ayala Mckay MD 230 [place] [address] Social History Tobacco Use Types Packs/Day Years [...] Info) Description 06/10/2025 9:00 AM EST Nutrition [facility] DIABETES/NUTRITION 230 [place] [address] [place] [address] 07/01/2025 9:15 AM EST Office Visit [facility] MEDICINE 230 [place] [address] Ayala Mckay MD 230 [place] [address] documented as of this encounter Visit Diagnoses Not on filedocumented in this encounter Additional Health Concerns Assessment Noted Time PHQ-9 Depression Total Score: 20 024 12:08 PM EDT documented as of this encounter Care Teams Boiler Tube Reamer Relationship Specialty Start Date End Date Ayala Mckay MD [address] [place] [address] PCP - General Family Medicine 08/08/16 Allison Almanza Lumber GraderEquipment Service Associate 01/08/24 documented as of this encounter
--- OUTSIDE RECORDS SUMMARY | 2025-05-17 17:44 | XMS_ITS | Encounter Summary ---
Author Organization [employer] Address [address] [place] [address], [place] [address] Care Team Providers Care Single Needle Tufting Machine Operator Name Role Phone Ayala Mckay MD Primary Care Provider + Encounter Details Date Type Department Care Team (Late st Contact Info) Description 10/31/2022 Orders Only [facility] CHC MED & PEDS [address] [place], [place] [phone] Felisa Zapata LPN Social History Tobacco Use [...] Info) Description 06/10/2025 9:00 AM EST Nutrition [facility] DIABETES/NUTRITION [address] [place] [address] [place] [address] 07/01/2025 9:15 AM EST Office Visit [facility] MEDICINE [address] [place] [address] Ayala Mckay MD 230 [place] [address] documented as of this encounter Visit Diagnoses Not on filedocumented in this encounter Care Teams Single Needle Tufting Machine Operator Relationship Specialty Start Date End Date Ayala Mckay MD [address] [place] [address] PCP - General Family Medicine 08/08/16 Allison Almanza Steel FinisherHuman Services Manager 01/08/24 documented as of this encounter
--- OUTSIDE RECORDS SUMMARY | 2025-05-17 17:44 | XMS_ITS | Encounter Summary ---
Author Organization [employer] Address [address] [place] [address] 7 [place] [address] Care Team Providers Care Acid Pumper Name Role Phone Ayala Mckay MD Primary Care Provider + Reason for Visit * Reason Comments Med Refill Encounter Details Date Type Department Care Team (Late Contact Info) Description 09/26/2023 Refill [facility] CHC MED & PEDS [address] [place], [place] [phone] Ayala Mckay MD 230 [place], [place] [phone] Arthritis; Vitamin D deficiency Social History Tobacco [...] Info) Description 06/10/2025 9:00 AM EST Nutrition [facility] DIABETES/NUTRITION 230 [place], [place] [phone] Mellissa Zamarripa [address] 230 [place], [place] [phone] 07/01/2025 9:15 AM EST Office Visit [facility] MEDICINE [address] [place] [address] Ayala Mckay MD 230 [place] [address] documented as of this encounter Visit Diagnoses Diagnosis Arthritis Unspecified arthropathy, site unspecified Vitamin D deficiency documented in this encounter Care Teams Acid Pumper Relationship Specialty Start Date End Date Ayala Mckay MD [address] [place] [address] PCP - General Family Medicine 08/08/16 Allison Almanza Weekend CaregiverMarketing Finance Specialist 01/08/24 documented as of this encounter
--- OUTSIDE RECORDS SUMMARY | 2025-05-17 17:44 | XMS_ITS | Encounter Summary ---
Author Organization [facility] [employer] [facility] Address [address] [place] [address], [place] [address] Care Team Providers Care Biomedical Instrument Technician Name Role Phone Ayala Mckay MD Primary Care Provider + Encounter Details Date Type Department Care Team (Late st Contact Info) Description 08/13/2022 Orders Only [facility] MEDICINE [address] [place] [address] [phone] Qian Bansal LPN Social History Tobacco Use [...] Description 06/10/2025 9:00 AM EST Nutrition [facility] DIABETES/NUTRITION [address] [place] [phone] [place] [address] 07/01/2025 9:15 AM EST Office Visit [facility] MEDICINE [address] [place] [address] [phone] Ayala Mckay MD 230 [place] [address] documented as of this encounter Visit Diagnoses Not on filedocumented in this encounter Care Teams Biomedical Instrument Technician Relationship Specialty Start Date End Date Aylaa Mckay MD 230 [place] [address] PCP - General Family Medicine 08/08/16 Allison Almanza Wastewater SuperintendentChief Of Police 01/08/24 documented as of this encounter
--- OUTSIDE RECORDS SUMMARY | 2025-05-17 17:44 | XMS_ITS | Encounter Summary ---
Author Organization [employer] Address 75 [facility] 7 [place] [address] Care Team Providers Care Content Publisher Name Role Phone Ayala Mckay MD Primary Care Provider + Reason for Visit * Reason Comments Med Refill Encounter Details Date Type Department Care Team (Late st Contact Info) Description 09/26/2023 Refill [facility] [address] [place] [address] Wilfrid Lancaster MD 230 [place] [address] Vitamin D deficiency Social History Tobacco Use [...] Info) Description 06/10/2025 9:00 AM EST Nutrition [facility] DIABETES/NUTRITION 230 [place] [address] [place] [address] 07/01/2025 9:15 AM EST Office Visit [facility] MEDICINE 230 [place] [address] Ayala Mckay MD 230 [place] [address] documented as of this encounter Visit Diagnoses Diagnosis Vitamin D deficiency documented in this encounter Care Teams Content Publisher Relationship Specialty Start Date End Date Ayala Mckay MD [address] [place] [address] PCP - General Family Medicine 08/08/16 Allison Almanza Web Analytics DeveloperPolymer Scientist 01/08/24 documented as of this encounter
--- OUTSIDE RECORDS SUMMARY | 2025-05-17 17:44 | XMS_ITS | Encounter Summary ---
Author Organization [employer] Address [address] [place] [address] [address] [address] Care Team Providers Care School Social Worker Name Role Phone Ayala Mckay MD Primary Care Provider + Encounter Details Date Type Department Care Team (Late st Contact Info) Description 12/02/2022 Orders Only [facility] CHC MED & PEDS [address] [place], [place] [phone] Felisa Zapata LPN Social History Tobacco Use [...] Nutrition [facility] DIABETES/NUTRITION [address] [place] [address] [place] [address] 07/01/2025 9:15 AM EST Office Visit [facility] MEDICINE [address] [place] [address] Ayala Mckay MD 230 [place] [address] documented as of this encounter Visit Diagnoses Not on filedocumented in this encounter Care Teams School Social Worker Relationship Specialty Start Date End Date Ayala Mckay MD [address] [place] [address] PCP - General Family Medicine 08/08/16 Allison Almanza Inside Sales CoordinatorTransportation Mechanic 01/08/24 documented as of this encounter
--- OUTSIDE RECORDS SUMMARY | 2025-05-17 17:44 | XMS_ITS | Clinical Summary ---
Author Organization [employer] Address [address] [place] [id number] Care Team Providers Care Housekeeper Manager Name Role Phone Lj Connolly MD Primary [...] AL D A CUANDO SEA NECESARIO Active hydroCHLOROthiaz sharon 12.5 MG tablet Take [...] 25 Active ergocalciferol (Vitamin D2) 1.25 MG (10036 UT) capsuleIndicatio ns:Vitamin D deficiency TAKE 1 CAPSULE BY MOUTH EVERY WEEK 12 capsule 04/19/20 25 Active diphenhydrAMINE (Banophen) 25 MG capsuleIndicatio ns:Allergy, subsequent encounter TAKE 1-2 CAPSULES BY MOUTH AT BEDTIME FOR INSOMNIA 60 capsule 3 04/22/20 25 Active montelukast (Singulair) 10 MG tabletIndication s:Vitamin D deficiency TAKE 1 TABLET BY MOUTH AT BEDTIME 90 tablet 1 05/17/20 25 Active diphenhydrAMINE (Banophen) 25 MG capsuleIndicatio ns:Allergy, subsequent encounter TAKE 1-2 CAPSULES BY MOUTH AT BEDTIME FOR INSOMNIA 60 capsule 3 06/01/20 24 025 Discontinued montelukast (Singulair) 10 MG tabletIndication s:Vitamin D deficiency TAKE 1 TABLET BY MOUTH AT BEDTIME 90 tablet 1 11/23/19 25 025 Discontinued ergocalciferol (Vitamin D2) 1.25 MG (72598 UT) capsuleIndicatio ns:Vitamin D deficiency TAKE 1 [...] life style modifications, diet and referral to medical sales specialist. - Recommended to decrease soda and [...] life style modifications, diet and referral to medical sales specialist, she declined. Recommended to decrease soda and sugary beverage consumption, increase protein intake with meals (at least 1 portion of protein with each meal) to assist with satiety, increase dietary fiber Recommended at least 150 min/week of moderate intensity exercise. Assessment & Plan (09/19/2023 10:56 AM EST): Discussed re weight reduction options including exercise, life style modifications, diet, referral to medical sales specialist. Discussed re lower calorie intake, increase dietary fiber Will refer to associate director data & analytics Diabetes mellitus 06/06/2023 06/06/2023 06/06/2023 Moderate asthma 06/06/2023 06/06/2023 06/06/2023 Dizziness 06/22/2012 06/25/2024 Encounters Date Type Department Care Team Description 05/16/2025 Refill [facility] MEDICINE [address] [place] [address] Lj Connolly MD Vitamin D deficiency 05/04/2025 Telephone [facility] MEDICINE [address] [place] [address] Lj Connolly MD Hold medication 04/21/2025 Refill [facility] MEDICINE [address] [place] [address] Lj Connolly MD Allergy, subsequent encounter 04/19/2025 Refill [facility] MEDICINE [address] [place] [address] [facility] Vitamin D deficiency 04/18/2025 Telephone [facility] MEDICINE [address] [place] [address] Nutrition referral 04/07/2025 Refill [facility] [address] [place], [place] [phone] Lj Connolly MD 03/24/2025 Refill [facility] MEDICINE [address] [place], [place] [phone] Lj Connolly MD 03/17/2025 Refill [facility] MEDICINE [address] [place] [address] Lj Connolly MD 03/13/2025 Refill [facility] MEDICINE [address] [place] [address] Lj Connolly MD 03/02/2025 9:30 AM EDT Office Visit [facility] OPTOMETRY [address] [place] [address] Rao, Jael, OD Hyperopia of both eyes (Primary Dx) 03/02/2025 Travel 03/01/2025 Refill [facility] MEDICINE [address] [place] [address] Lj Connolly MD Interstitial cystitis (chronic) with hematuria 02/23/2025 Results Follow-Up [facility] MEDICINE [address] [place] [address] Lj Connolly MD XR Hip 2 or 3 Views Left, XR Lumbar Spine Complete 4+ Views 02/22/2025 9:45 AM EDT Office Visit [facility] MEDICINE [address] [place] [address] Lj Connolly MD Overweight (Primary Dx); Stenosis of intervertebral foramina; Iliopsoas bursitis of left hip; Moderate persistent asthma without complication; IFG (impaired fasting glucose); Mild intermittent asthma without complication 02/22/2025 Travel 02/18/2025 Refill [facility] MEDICINE [address] [place] [address] Lj Connolly MD from Last 3 Months [...] Info) Description 06/10/2025 9:00 AM EST Nutrition [facility] DIABETES/NUTRITION [address] [place] [address] Mellissa Zamarripa, ROSIO [address] [place] [address] 07/01/2025 9:15 AM EST Office Visit [facility] MEDICINE [address] [place] [address] Lj Connolly MD [address] [place] [address] Health Maintenance Due Date Last Done Comments [...] Results * Referral to Pain Medicine (05/06/2025) Lj Connolly MD OUTPATIENT REFERRAL ORDTonny ARMAS Final Result * XR Hip 2 or 3 Views Left (02/22/2025 9:28 AM EDT) Anatomical Region Laterality Modality Lower Extremities, Hip Left Radiograp hic Imaging 02/22/2025 9:28 AM EDT Narrative 02/22/2025 11:22 AM EDT [address] [address] XRay Report Signed Patient: Annabella Gillespie I MR#: [id number] 3 : 1965 Acct:[id number] Age/Sex: 59 / F ADM Date: 02/22/25 Loc: [facility] Attending Dr: Lj Connolly MD Ordering Physician: Lj Connolly MD Date of Service: 02/22/25 Procedure(s): XR hip LT min 2V Accession Number(s): [id number] cc: Lj Connolly MD EXAMINATION: XR HIP, [...] MD 02/22/2025 11:20 AM EDT Dictated By: Adonsi Bedoya MD Signed By: <Electronically signed by Adonis Bedoya MD in OV> 02/22/25 1120 DD/ 0928 TD/TT: 02/22/25 0930 Factory Clerk: Procedure Note Donotuseinterpreter, Image - 02/22/[address] [address] XRay Report Signed Patient: Annabella Gillespie IMR#: [id number] 3 : 1965Acct:[id number] Age/Sex: 59 / FADM Date: 02/22/25 Loc: [facility] Attending Dr: Lj Connolly MD Ordering Physician: Lj Connolly MD Date of Service: 02/22/25 Procedure(s): XR hip LT min 2V Accession Number(s): [id number] cc: Lj Connolly MD EXAMINATION: XR HIP, [...] 02/22/25 1120 DD/ 7 TD/TT: 02/22/25 0930 Factory Clerk: Lj Connolly MD IMG XR PROCEDURES Edited Result - Final * XR Lumbar Spine Complete 4+ Views (02/22/2025 9:18 AM EDT) Anatomical Region Laterality Modality Spine, L-spine Radiographic Marisa ging 02/22/2025 9:18 AM EDT Narrative 02/22/2025 11:28 AM EDT [address] [address] XRay Report Signed Patient: Annabella Gillespie I MR#: [id number] 3 : 1965 Acct:[id number] Age/Sex: 59 / F ADM Date: 02/22/25 Loc: HO.[facility]HCX Attending Dr: Lj Connolly MD Ordering Physician: Lj Connolly MD Date of Service: 02/22/25 Procedure(s): XR lumbar spine 4V min Accession Number(s): [id number] cc: Lj Connolly MD Examination: 5 view [...] 02/22/25 1125 DD/ 0918 TD/TT: 02/22/25 0930 Factory Clerk: Procedure Note Donotuseinterpreter, Image - 02/22/[address] [address] XRay Report Signed Patient: Annabella Gillespie [facility]#: [id number] 3 : 1965Acct:[id number] Age/Sex: 59 / FADM Date: 02/22/25 [facility]: Lj Connolly MD Ordering Physician: Lj Connolly MD Date of Service: 02/22/25 Procedure(s): XR lumbar spine 4V min Accession Number(s): [id number] cc: Lj Connolly MD Examination: 5 view [...] 02/22/25 1125 DD/ 0918 TD/TT: 02/22/25 0930 Factory Clerk: Lj Connolly MD IMG XR PROCEDURES Edited Result - Final * (ABNORMAL) Lipid Panel with Reflex to Direct LDL (01/20/2025 9:52 AM EDT) Triglycerides 120 <150 mg/dL [facility] Comment:Desirable Triglyceri de: less than 150 mg/dLBorderline High Triglyceride 150-199 mg/dLHigh Triglyceride: 200-499 mg/dLVery High Triglyceride: greater than or equal to 5OO mg/dL Cholesterol 195 <200 mg/dL [facility] Comment:Desirable Cholestero l: less than 200 mg/dLBorderline High Cholesterol: 200-239 mg/dLHigh Cholesterol: greater than 239 mg/dL LDL Cholesterol Calculated 121(H) <100 mg/dL [facility] Comment:Desirable LDL: less than 100 mg/dLNear Optimal/Above Optimal LDL: 110- 129 mg/dLBorderline High LDL: 130-159 mg/dLHigh LDL: 160-189 mg/dLVery High LDL: greater than or equal to 190 mg/dL HDL Cholesterol 50 >40 mg/dL [facility] Comment:Desirable HDL: great er than 40 mg/dL Note: This HDL assay may give artificially low results in patients with liver disease. Blood 01/20/2025 9:52 AM EDT 01/20/2025 11:02 AM EDT Lj Connolly MD LAB BLOOD ORDERABLES Fin al Result [facility] [address] [place] [phone] * Mammography Report 1 (01/02/2021 12:10 PM EDT) Anatomical Region Laterality Modality Breast Bilateral Mammography 01/02/2021 12:1 0 PM EDT Narrative 01/03/2021 1:39 PM EDT Refer to the Notes tab for result details [facility] Procedure: Mammography Report 1 Procedure Note Provider, Celso, - 10/13/2022 Refer to the Notes tab for result details [facility] Procedure: Mammography Report 1 us Lj Connolly MD IMG BI PROCEDURES Final Result * Hm Colonoscopy (02/15/2019 5:53 AM EDT) us Historical Provider HEALTH MAINTENANCE Final Result from Last 3 Months or Most Recently Relevant to Health Maintenance Insurance [facility] C3 Care Teams Housekeeper Manager Relationship Specialty Start Date End Date Lj Connolly MD [address] [place] [address] PCP - General Family Medicine 08/08/16 Allison Almanza Financial Operations AnalystStone Gluer 01/08/24
== END 2025-05-17 14:06 | disposition home or self-care (01) ==
LOC: HO.PMCPRC 13:39
PROVIDERS: PCP Internal Medicine; Visit Provider Anesthesiology
DX: M53.3 Sacrococcygeal disorders, not elsewhere classified (principal); M46.1 Sacroiliitis, not elsewhere classified; M47.816 Spondylosis without myelopathy or radiculopathy, lumbar region; M54.2 Cervicalgia; M47.812 Spondylosis without myelopathy or radiculopathy, cervical region
CPT/HCPCS: 27096